=== PATIENT | male | born 1950 | race Caucasian/White ===

== ENCOUNTER 2018-03-14 11:16 | Inpatient (IN) | payer OTHER ==
[2018-03-14] MEDS: PIPER-TAZO 3.375 GM IV (PMX) 100 ML IVPB ×2 (14:12)
[2018-03-14] MEDS: SODIUM CHLORIDE 0.9% 1L BAG IV* (14:12)
[2018-03-14] MEDS: morphine 4 MG/ML VIAL IV ×2 (14:12→15:49)
[2018-03-14 14:23] LABS: WHITE BLOOD COUNT 23.5 10^3/ul (4.8-10.8)
[2018-03-14 14:23] LABS: ABNORMAL IP MESSAGE 1; HEMATOCRIT 36.4 % (42.0-52.0); HEMOGLOBIN 12.2 g/dl (14.0-18.0); MEAN CORPUSCULAR HEMOGLOBIN 32.4 pg (29.0-33.0); MEAN CORPUSCULAR HGB CONC 33.5 g/dl (32.0-37.0); MEAN CORPUSCULAR VOLUME 96.8 fl (82.0-101.0); MEAN PLATELET VOLUME 10.2 fl (7.4-10.4); PLATELET COUNT 250 10^3/UL (140-415); POSITIVE DIFF @See below; RED BLOOD COUNT 3.76 10^6/ul (4.70-6.10); RED CELL DISTRIBUTION WIDTH 12.8 % (11.5-14.5)
[2018-03-14 14:31] LABS: ADD MAN DIFF? YES
[2018-03-14 14:39] LABS: LACTIC ACID 1.1 mmol/L (0.5-2.0)
[2018-03-14 14:48] LABS: ANION GAP 14 (8-16); BLOOD UREA NITROGEN 16 mg/dl (7-20); CALCIUM 9.3 mg/dl (8.4-10.2); CARBON DIOXIDE 30 mmol/L (21-31); CHLORIDE 98 mmol/L (97-110); CREATININE 0.96 mg/dl (0.61-1.24); GLUCOSE 198 mg/dl (70-220); POTASSIUM 4.4 mmol/L (3.5-5.1); SODIUM 138 mmol/L (135-144)
[2018-03-14 14:57] LABS: PROTIME 13.3 Sec (11.9-14.9)
[2018-03-14 14:58] LABS: PARTIAL THROMBOPLASTIN TIME 36.4 Sec (25.0-35.0)
[2018-03-14 15:13] LABS: BAND NEUTROPHILS #M 0.7 10^3/ul (0.0-0.6); BAND NEUTROPHILS % (M) 3 % (0-4); GIANT THROMBO% (M) 3 % (0-0); LYMPHOCYTES #M 1.8 10^3/ul (0.8-2.9); LYMPHOCYTES % (M) 8 % (15-51); MONOCYTE #M 5.6 10^3/ul (0.3-0.9); MONOCYTES % (M) 24 % (0-11); MYELOCYTES #M 0.7 10^3/ul (0.0-0.0); MYELOCYTES % (M) 3 % (0-0); PLATELET ESTIMATE NORMAL; REACTIVE LYMPHOCYTES #M 0.4 10^3/ul (0.0-0.0); REACTIVE LYMPHOCYTES% (M) 2 % (0-0); SEG NEUT #M 14.3 10^3/ul (1.6-7.5); SEGMENTED NEUTROPHILS (M) % 60 % (39-77); SMUDGE%M 4 % (0-0)
[2018-03-14] MEDS: VANCOMYCIN 1 GM (PMX) 250 ML IVPB (15:22)
[2018-03-14] MEDS ORDERED: ACETAMINOPHEN 325 MG TAB PO ×2 (15:30→16:00)
[2018-03-14] MEDS ORDERED: ONDANSETRON 4 MG INJ IV ×2 (15:30→16:00)
[2018-03-14] MEDS ORDERED: NACL 0.9% 3 ML SYG IV (16:00)
[2018-03-14] MEDS ORDERED: VANCOMYCIN IV PER PHARMACY XX (16:00)
[2018-03-14] MEDS ORDERED: GLUCAGON 1 MG INJ IM (16:30)
[2018-03-14] MEDS ORDERED: GLUCOSE GEL 15 GRAM TUBE BUCCAL (16:30)
[2018-03-14] MEDS ORDERED: GLUCOSE GEL 15 GRAM TUBE PO ×2 (16:30)
[2018-03-14] MEDS ORDERED: DEXTROSE 50% 50 ML SYRINGE IV ×2 (16:30)
[2018-03-14 16:47] LABS: HEMOGLOBIN A1C 11.2 % (0-5.9)
[2018-03-14 17:31] LABS: ERYTHROCYTE SEDIMENTATION RATE 115 mm/Hr (0-20)
[2018-03-14] MEDS: INSULIN ASPART [NOVOLOG] 3 ML PEN SC ×3 (18:00→21:00)
[2018-03-14 19:26] LABS: LACTIC ACID 1.1 mmol/L (0.5-2.0)
[2018-03-14] MEDS: INSULIN GLARGINE [LANTus] (100 UNITS/ML) SYG SC ×2 (20:00→22:47)
[2018-03-14] MEDS: SOD CHLORIDE 0.9% 1,000 ML IV (20:26)
[2018-03-14] MEDS: HYDROCODONE/APAP (5/325) TAB PO (20:35)
[2018-03-14] MEDS: VANCOMYCIN 1 GM in 250 ML IVPB (20:35)
[2018-03-14] MEDS: ATORVASTATIN 10 MG TAB PO (20:35)
[2018-03-14 21:00] LABS: B-TYPE NATRIURETIC PEPTIDE 842 PG/ML (0-125)
[2018-03-14 23:22] LABS: LACTIC ACID 0.8 mmol/L (0.5-2.0)
[2018-03-15] MEDS ORDERED: PENDING SANTYL ORDER FOR WOUND CARE XX (00:30)
[2018-03-15] MEDS: HYDROCODONE/APAP (5/325) TAB PO ×2 (02:36→21:22)
[2018-03-15] MEDS: VANCOMYCIN 1 GM in 250 ML IVPB ×2 (04:30→18:20)
[2018-03-15 06:03] LABS: WHITE BLOOD COUNT 21.5 10^3/ul (4.8-10.8)
[2018-03-15 06:03] LABS: ABNORMAL IP MESSAGE 1; HEMOGLOBIN 10.7 g/dl (14.0-18.0); MEAN CORPUSCULAR HEMOGLOBIN 31.7 pg (29.0-33.0); MEAN CORPUSCULAR HGB CONC 33.4 g/dl (32.0-37.0); MEAN CORPUSCULAR VOLUME 94.7 fl (82.0-101.0); MEAN PLATELET VOLUME 10.2 fl (7.4-10.4); PLATELET COUNT 226 10^3/UL (140-415); POSITIVE DIFF @See below; RED BLOOD COUNT 3.38 10^6/ul (4.70-6.10)
[2018-03-15 06:13] LABS: ADD MAN DIFF? YES
[2018-03-15 06:21] LABS: LACTIC ACID 0.7 mmol/L (0.5-2.0)
[2018-03-15] MEDS: PIPER-TAZO 3.375 GM IV (PMX) 100 ML IVPB ×5 (06:34→17:43)
[2018-03-15 06:51] LABS: ANION GAP 12 (8-16); BLOOD UREA NITROGEN 13 mg/dl (7-20); CALCIUM 8.2 mg/dl (8.4-10.2); CARBON DIOXIDE 25 mmol/L (21-31); CHLORIDE 105 mmol/L (97-110); CREATININE 0.69 mg/dl (0.61-1.24); GLUCOSE 88 mg/dl (70-220); POTASSIUM 3.8 mmol/L (3.5-5.1); SODIUM 138 mmol/L (135-144)
[2018-03-15] MEDS: INSULIN ASPART [NOVOLOG] 3 ML PEN SC ×7 (08:00→21:19)
[2018-03-15] MEDS: DEXTROSE 5%-0.45% NACL 1,000 ML IV (08:19)
[2018-03-15 08:23] LABS: LYMPHOCYTES #M 2.1 10^3/ul (0.8-2.9); LYMPHOCYTES % (M) 10 % (15-51); MONOCYTE #M 5.5 10^3/ul (0.3-0.9); MONOCYTES % (M) 26 % (0-11); MYELOCYTES #M 0.2 10^3/ul (0.0-0.0); MYELOCYTES % (M) 1 % (0-0); PLATELET ESTIMATE NORMAL; POLYCHROMASIA 1+ (0-0); SEGMENTED NEUTROPHILS (M) % 63 % (39-77); SMUDGE%M 3 % (0-0)
[2018-03-15 08:37] LABS: CHOL/HDL RATIO 4.6 RATIO; CHOLESTEROL 97 mg/dl (100-200); HDL CHOLESTEROL 21 mg/dl (30-78); LDL CHOLESTEROL,CALCULATED 57 mg/dl; MAGNESIUM 1.4 mg/dl (1.7-2.5); TRIGLYCERIDES 95 mg/dl (0-149)
[2018-03-15 08:37] LABS: PHOSPHORUS 3.5 mg/dl (2.5-4.9)
[2018-03-15] MEDS: ENOXAPARIN 40 MG/0.4 ML SYG SC (09:00)
[2018-03-15] MEDS: ASPIRIN 81 MG TAB PO (09:01)
[2018-03-15] MEDS: AMLODIPINE 2.5 MG TAB PO (09:02)
[2018-03-15] MEDS: GABAPENTIN 300 MG CAP PO (09:02)
[2018-03-15] MEDS: LOSARTAN 50 MG TAB PO (09:02)
[2018-03-15] MEDS: CHOLECALCIFEROL 2,000 UNIT CAP PO (09:02)
[2018-03-15] MEDS ORDERED: EPHEDrine SULFATE 50 MG/5 ML SYG IV (13:00)
[2018-03-15] MEDS ORDERED: ATROPINE 1 MG/10 ML SYRINGE IV (13:00)
[2018-03-15] MEDS ORDERED: MIDAZOLAM 1 MG/ML 2 ML INJ IV (13:00)
[2018-03-15] MEDS ORDERED: FENTAnyl 50 MCG/ML VIAL IV ×2 (13:00)
[2018-03-15] MEDS ORDERED: LABETALOL HCL 20MG INJ IV (13:00)
[2018-03-15] MEDS ORDERED: OXYCODONE/ACETAMINOPHEN (5/325) TAB PO ×2 (13:00)
[2018-03-15] MEDS ORDERED: morphine (1 MG/ML) 10ML SYRINGE IV ×2 (13:00)
[2018-03-15] MEDS ORDERED: DIPHENHYDRAMINE 50 MG INJ IV (13:00)
[2018-03-15] MEDS ORDERED: HYDROmorphONE 1 MG/5 ML IV SYRINGE IV ×2 (13:00)
[2018-03-15] MEDS ORDERED: ONDANSETRON 4 MG INJ IV (13:00)
[2018-03-15] MEDS ORDERED: MEPERIDINE 25 MG INJ IV (13:00)
[2018-03-15] MEDS ORDERED: hydrALAzine 20 MG INJ IV (13:00)
[2018-03-15] MEDS: BACITRACIN 50000 UNITS INJ (13:03)
[2018-03-15] MEDS: POLYMYXIN B 500000 UNIT INJ (13:03)
[2018-03-15] MEDS: METHYLENE BLUE 1% 10 ML INJ (13:30)
[2018-03-15] MEDS: HYDROmorphONE 1 MG/5 ML IV SYRINGE IV (14:18)
[2018-03-15] MEDS: morphine (1 MG/ML) 10ML SYRINGE IV (14:39)
[2018-03-15] MEDS: MAGNESIUM SULFATE 4 GM/100 ML 100 ML IVPB (15:22)
[2018-03-15] MEDS: INSULIN GLARGINE [LANTus] (100 UNITS/ML) SYG SC (20:12)
[2018-03-15] MEDS: ATORVASTATIN 10 MG TAB PO (21:12)
[2018-03-16] MEDS: PIPER-TAZO 3.375 GM IV (PMX) 100 ML IVPB ×5 (00:38→23:31)
[2018-03-16] MEDS: HYDROCODONE/APAP (5/325) TAB PO ×5 (03:03→23:31)
[2018-03-16 04:00] LABS: ABNORMAL IP MESSAGE 1; HEMATOCRIT 32.6 % (42.0-52.0); HEMOGLOBIN 11.1 g/dl (14.0-18.0); MEAN CORPUSCULAR HEMOGLOBIN 32.3 pg (29.0-33.0); MEAN CORPUSCULAR VOLUME 94.8 fl (82.0-101.0); MEAN PLATELET VOLUME 9.4 fl (7.4-10.4); PLATELET COUNT 218 10^3/UL (140-415); POSITIVE DIFF @See below; RED BLOOD COUNT 3.44 10^6/ul (4.70-6.10); RED CELL DISTRIBUTION WIDTH 12.6 % (11.5-14.5)
[2018-03-16 04:00] LABS: WHITE BLOOD COUNT 26.6 10^3/ul (4.8-10.8)
[2018-03-16 04:10] LABS: ADD MAN DIFF? YES
[2018-03-16 04:20] LABS: ANION GAP 11 (8-16); BLOOD UREA NITROGEN 16 mg/dl (7-20); CALCIUM 8.6 mg/dl (8.4-10.2); CARBON DIOXIDE 27 mmol/L (21-31); CHLORIDE 104 mmol/L (97-110); CREATININE 0.86 mg/dl (0.61-1.24); GLUCOSE 211 mg/dl (70-220); MAGNESIUM 2.1 mg/dl (1.7-2.5); SODIUM 137 mmol/L (135-144)
[2018-03-16 04:29] LABS: VANCOMYCIN,TROUGH 9.2 ug/ml (10.0-20.0)
[2018-03-16] MEDS: VANCOMYCIN 1 GM in 250 ML IVPB (04:59)
[2018-03-16 05:21] LABS: LYMPHOCYTES #M 0.5 10^3/ul (0.8-2.9); LYMPHOCYTES % (M) 2 % (15-51); METAMYELOCYTES #M 0.7 10^3/ul (0.0-0.0); METAMYELOCYTES %M 3 % (0-0); MONOCYTES % (M) 19 % (0-11); MYELOCYTES #M 0.5 10^3/ul (0.0-0.0); MYELOCYTES % (M) 2 % (0-0); PLATELET ESTIMATE NORMAL; POLYCHROMASIA 2+ (0-0); SEGMENTED NEUTROPHILS (M) % 74 % (39-77); SMUDGE%M 4 % (0-0)
[2018-03-16] MEDS: INSULIN ASPART [NOVOLOG] 3 ML PEN SC ×7 (08:13→21:00)
[2018-03-16] MEDS: ASPIRIN 81 MG TAB PO (08:15)
[2018-03-16] MEDS: ENOXAPARIN 40 MG/0.4 ML SYG SC (08:15)
[2018-03-16] MEDS: CHOLECALCIFEROL 2,000 UNIT CAP PO (08:16)
[2018-03-16] MEDS: AMLODIPINE 2.5 MG TAB PO (08:16)
[2018-03-16] MEDS: GABAPENTIN 300 MG CAP PO (08:16)
[2018-03-16] MEDS: LOSARTAN 50 MG TAB PO (08:17)
[2018-03-16] MEDS: SODIUM HYPOCHLORITE (1/40) 1 APPLIC BTL IRR ×2 (09:43→21:12)
[2018-03-16] MEDS ORDERED: MIDAZOLAM 1 MG/ML 2 ML INJ (13:35)
[2018-03-16] MEDS ORDERED: FENTAnyl 50 MCG/ML VIAL (13:35)
[2018-03-16] MEDS ORDERED: PROPOFOL 200 MG INJ (13:35)
[2018-03-16] MEDS ORDERED: NEOSTIGMINE 3 MG/3 ML SYRINGE (13:35)
[2018-03-16] MEDS ORDERED: LIDOCAINE 2% (SDV) 5 ML INJ (13:35)
[2018-03-16] MEDS ORDERED: ONDANSETRON 4 MG INJ (13:35)
[2018-03-16] MEDS ORDERED: GLYCOPYRROLATE 0.4 MG INJ (13:35)
[2018-03-16] MEDS ORDERED: DEXAMETHASONE 4 MG/ML 1 ML INJ (13:35)
[2018-03-16] MEDS ORDERED: SUCCINYLCHOLINE CHLORIDE 100 MG/5 ML SYG IV (13:35)
[2018-03-16] MEDS: VANCOMYCIN 1.5 GM in SOD CHLORIDE 0.9% 250 ML IVPB (17:41)
[2018-03-16] MEDS: INSULIN GLARGINE [LANTus] (100 UNITS/ML) SYG SC (20:11)
[2018-03-16] MEDS: ATORVASTATIN 10 MG TAB PO (21:10)
[2018-03-17] MEDS: INSULIN ASPART [NOVOLOG] 3 ML PEN SC ×7 (01:00→21:00)
[2018-03-17] MEDS: PIPER-TAZO 3.375 GM IV (PMX) 100 ML IVPB ×4 (05:36→23:33)
[2018-03-17 05:50] LABS: ADD MAN DIFF? NO
[2018-03-17 05:53] LABS: WHITE BLOOD COUNT 21.8 10^3/ul (4.8-10.8)
[2018-03-17 05:53] LABS: ABNORMAL IP MESSAGE 1; BASOPHIL # 0.1 10^3/ul (0.0-0.1); BASOPHILS % 0.5 % (0.0-2.0); EOSINOPHILS % 0.1 % (0.0-7.0); HEMATOCRIT 32.9 % (42.0-52.0); HEMOGLOBIN 11.2 g/dl (14.0-18.0); LYMPHOCYTES % 13.6 % (15.0-51.0); MEAN CORPUSCULAR HEMOGLOBIN 32.8 pg (29.0-33.0); MEAN CORPUSCULAR VOLUME 96.5 fl (82.0-101.0); MEAN PLATELET VOLUME 10.1 fl (7.4-10.4); MONOCYTE # 4.5 10^3/ul (0.3-0.9); MONOCYTES % 20.4 % (0.0-11.0); NEUTROPHIL # 12.5 10^3/ul (1.6-7.5); NEUTROPHILS % 57.2 % (39.0-77.0); PLATELET COUNT 252 10^3/UL (140-415); POSITIVE DIFF @See below; RED BLOOD COUNT 3.41 10^6/ul (4.70-6.10); RED CELL DISTRIBUTION WIDTH 12.8 % (11.5-14.5)
[2018-03-17] MEDS: VANCOMYCIN 1.5 GM in SOD CHLORIDE 0.9% 250 ML IVPB (06:19)
[2018-03-17 06:25] LABS: ANION GAP 12 (8-16); BLOOD UREA NITROGEN 16 mg/dl (7-20); CALCIUM 8.4 mg/dl (8.4-10.2); CARBON DIOXIDE 27 mmol/L (21-31); CHLORIDE 106 mmol/L (97-110); CREATININE 0.81 mg/dl (0.61-1.24); GLUCOSE 73 mg/dl (70-220); POTASSIUM 4.1 mmol/L (3.5-5.1); SODIUM 141 mmol/L (135-144)
[2018-03-17] MEDS: DEXTROSE 5%-0.45% NACL 1,000 ML IV (06:30)
[2018-03-17] MEDS: LOSARTAN 50 MG TAB PO (08:40)
[2018-03-17] MEDS: GABAPENTIN 300 MG CAP PO (08:40)
[2018-03-17] MEDS: ENOXAPARIN 40 MG/0.4 ML SYG SC (08:40)
[2018-03-17] MEDS: ASPIRIN 81 MG TAB PO (08:40)
[2018-03-17] MEDS: CHOLECALCIFEROL 2,000 UNIT CAP PO (08:40)
[2018-03-17] MEDS: AMLODIPINE 2.5 MG TAB PO (08:40)
[2018-03-17] MEDS: SODIUM HYPOCHLORITE (1/40) 1 APPLIC BTL IRR ×2 (08:41→20:11)
[2018-03-17] MEDS ORDERED: FENTAnyl 50 MCG/ML VIAL (13:02)
[2018-03-17] MEDS ORDERED: MIDAZOLAM 1 MG/ML 2 ML INJ (13:02)
[2018-03-17] MEDS ORDERED: IODIXANOL LOCM 50 ML BTL (13:21)
[2018-03-17] MEDS ORDERED: HEPARIN 1000 UNITS/NS (A-LINE) 2,000 ML (13:21)
[2018-03-17] MEDS ORDERED: IODIXANOL LOCM 100 ML BTL (13:21)
[2018-03-17] MEDS ORDERED: LIDOCAINE 1% (MDV) 20 ML INJ (13:21)
[2018-03-17] MEDS: HYDROCODONE/APAP (5/325) TAB PO ×2 (14:04→21:46)
[2018-03-17] MEDS: ASPIRIN 325 MG TAB PO (15:36)
[2018-03-17] MEDS: CLOPIDOGREL 75 MG TAB PO (15:37)
[2018-03-17] MEDS: INSULIN GLARGINE [LANTus] (100 UNITS/ML) SYG SC (20:10)
[2018-03-17] MEDS: ATORVASTATIN 10 MG TAB PO (20:11)
[2018-03-18] MEDS: PIPER-TAZO 3.375 GM IV (PMX) 100 ML IVPB ×4 (05:33→23:20)
[2018-03-18 05:44] LABS: WHITE BLOOD COUNT 20.1 10^3/ul (4.8-10.8)
[2018-03-18 05:44] LABS: ABNORMAL IP MESSAGE 1; HEMATOCRIT 32.8 % (42.0-52.0); MEAN CORPUSCULAR HGB CONC 33.5 g/dl (32.0-37.0); MEAN CORPUSCULAR VOLUME 95.3 fl (82.0-101.0); MEAN PLATELET VOLUME 10.1 fl (7.4-10.4); PLATELET COUNT 239 10^3/UL (140-415); POSITIVE DIFF @See below; RED BLOOD COUNT 3.44 10^6/ul (4.70-6.10)
[2018-03-18 05:59] LABS: ADD MAN DIFF? YES
[2018-03-18 06:20] LABS: ANION GAP 10 (8-16); BLOOD UREA NITROGEN 14 mg/dl (7-20); CALCIUM 8.5 mg/dl (8.4-10.2); CARBON DIOXIDE 28 mmol/L (21-31); CHLORIDE 105 mmol/L (97-110); CREATININE 0.81 mg/dl (0.61-1.24); GLUCOSE 90 mg/dl (70-220); POTASSIUM 3.9 mmol/L (3.5-5.1); SODIUM 139 mmol/L (135-144)
[2018-03-18 07:51] LABS: BAND NEUTROPHILS % (M) 5 % (0-4); BASOPHIL #M 0.4 10^3/ul (0.0-0.0); BASOPHILS % (M) 2 % (0-2); ERYTHROBLAST% (NRBC) (M) 1 % (0-0); LYMPHOCYTES #M 2.2 10^3/ul (0.8-2.9); LYMPHOCYTES % (M) 11 % (15-51); MONOCYTE #M 3.2 10^3/ul (0.3-0.9); MONOCYTES % (M) 16 % (0-11); MYELOCYTES #M 1.2 10^3/ul (0.0-0.0); MYELOCYTES % (M) 6 % (0-0); PLATELET ESTIMATE NORMAL; SEG NEUT #M 12.3 10^3/ul (1.6-7.5); SEGMENTED NEUTROPHILS (M) % 60 % (39-77); SMUDGE%M 3 % (0-0)
[2018-03-18] MEDS: INSULIN ASPART [NOVOLOG] 3 ML PEN SC ×7 (08:00→21:00)
[2018-03-18] MEDS: LOSARTAN 50 MG TAB PO (08:22)
[2018-03-18] MEDS: CHOLECALCIFEROL 2,000 UNIT CAP PO (08:22)
[2018-03-18] MEDS: CLOPIDOGREL 75 MG TAB PO (08:23)
[2018-03-18] MEDS: SODIUM HYPOCHLORITE (1/40) 1 APPLIC BTL IRR ×2 (08:23→20:15)
[2018-03-18] MEDS: AMLODIPINE 2.5 MG TAB PO (08:23)
[2018-03-18] MEDS: GABAPENTIN 300 MG CAP PO (08:23)
[2018-03-18] MEDS: ASPIRIN 325 MG TAB PO (08:23)
[2018-03-18] MEDS: ENOXAPARIN 40 MG/0.4 ML SYG SC (08:23)
[2018-03-18] MEDS: VANCOMYCIN 1.5 GM in SOD CHLORIDE 0.9% 250 ML IVPB ×2 (09:03→21:30)
[2018-03-18] MEDS ORDERED: INSULIN ASPART [NOVOLOG] 3 ML PEN SC (13:00)
[2018-03-18 13:24] LABS: C-REACTIVE PROTEIN 4.9 mg/dl (0.0-0.9)
[2018-03-18] MEDS: HYDROCODONE/APAP (5/325) TAB PO ×4 (15:06→23:55)
[2018-03-18 15:12] LABS: ERYTHROCYTE SEDIMENTATION RATE 115 mm/Hr (0-20)
[2018-03-18] MEDS: INSULIN GLARGINE [LANTus] (100 UNITS/ML) SYG SC (20:14)
[2018-03-18] MEDS: ATORVASTATIN 10 MG TAB PO (20:14)
[2018-03-19] MEDS: PIPER-TAZO 3.375 GM IV (PMX) 100 ML IVPB ×4 (00:33→17:02)
[2018-03-19 06:10] LABS: ABNORMAL IP MESSAGE 1; HEMATOCRIT 33.6 % (42.0-52.0); HEMOGLOBIN 11.3 g/dl (14.0-18.0); MEAN CORPUSCULAR HGB CONC 33.6 g/dl (32.0-37.0); MEAN CORPUSCULAR VOLUME 95.2 fl (82.0-101.0); MEAN PLATELET VOLUME 9.8 fl (7.4-10.4); PLATELET COUNT 256 10^3/UL (140-415); POSITIVE DIFF @See below; RED BLOOD COUNT 3.53 10^6/ul (4.70-6.10); RED CELL DISTRIBUTION WIDTH 12.9 % (11.5-14.5)
[2018-03-19 06:10] LABS: WHITE BLOOD COUNT 18.8 10^3/ul (4.8-10.8)
[2018-03-19 06:20] LABS: ADD MAN DIFF? YES
[2018-03-19 06:39] LABS: PHOSPHORUS 4.5 mg/dl (2.5-4.9)
[2018-03-19 06:39] LABS: MAGNESIUM 1.8 mg/dl (1.7-2.5)
[2018-03-19 06:42] LABS: ANION GAP 14 (8-16); BLOOD UREA NITROGEN 15 mg/dl (7-20); CALCIUM 9.1 mg/dl (8.4-10.2); CARBON DIOXIDE 27 mmol/L (21-31); CHLORIDE 102 mmol/L (97-110); CREATININE 0.83 mg/dl (0.61-1.24); GLUCOSE 92 mg/dl (70-220); POTASSIUM 3.8 mmol/L (3.5-5.1); SODIUM 139 mmol/L (135-144)
[2018-03-19] MEDS: HYDROCODONE/APAP (5/325) TAB PO ×3 (07:28→16:08)
[2018-03-19] MEDS: INSULIN ASPART [NOVOLOG] 3 ML PEN SC ×6 (07:30→17:10)
[2018-03-19 08:06] LABS: BASOPHIL #M 0.1 10^3/ul (0.0-0.0); BASOPHILS % (M) 1 % (0-2); PLATELET ESTIMATE NORMAL
[2018-03-19] MEDS: ENOXAPARIN 40 MG/0.4 ML SYG SC (08:25)
[2018-03-19] MEDS: CHOLECALCIFEROL 2,000 UNIT CAP PO (08:26)
[2018-03-19] MEDS: CLOPIDOGREL 75 MG TAB PO (08:26)
[2018-03-19] MEDS: LOSARTAN 50 MG TAB PO (08:27)
[2018-03-19] MEDS: AMLODIPINE 2.5 MG TAB PO (08:27)
[2018-03-19] MEDS: GABAPENTIN 300 MG CAP PO (08:27)
[2018-03-19] MEDS: ASPIRIN 325 MG TAB PO (08:29)
[2018-03-19] MEDS: VANCOMYCIN 1.5 GM in SOD CHLORIDE 0.9% 250 ML IVPB (08:29)
[2018-03-19] MEDS: SODIUM HYPOCHLORITE (1/40) 1 APPLIC BTL IRR (08:30)
[2018-03-19 11:54] LABS: BAND NEUTROPHILS #M 2.2 10^3/ul (0.0-0.6); BAND NEUTROPHILS % (M) 12 % (0-4); BURR CELLS 1+ (0-0); EOSINOPHILS % (M) 1 % (0-7); ERYTHROBLAST% (NRBC) (M) 1 % (0-0); GIANT THROMBO% (M) 2 % (0-0); LYMPHOCYTES #M 1.6 10^3/ul (0.8-2.9); LYMPHOCYTES % (M) 9 % (15-51); METAMYELOCYTES #M 0.1 10^3/ul (0.0-0.0); METAMYELOCYTES %M 1 % (0-0); MONOCYTES % (M) 16 % (0-11); MYELOCYTES #M 0.5 10^3/ul (0.0-0.0); MYELOCYTES % (M) 3 % (0-0); POLYCHROMASIA 2+ (0-0); REACTIVE LYMPHOCYTES #M 0.3 10^3/ul (0.0-0.0); REACTIVE LYMPHOCYTES% (M) 2 % (0-0); SEG NEUT #M 10.9 10^3/ul (1.6-7.5); SEGMENTED NEUTROPHILS (M) % 56 % (39-77); SMUDGE%M 7 % (0-0)
[2018-03-24 13:18] LABS: PROCALCITONIN <0.10 ng/mL (<0.10)
== END 2018-03-19 18:30 | DRG 854 ==
LOC: E/R 11:16 → PP2 18:30
PROC: 0KBW0ZZ Excision of Left Foot Muscle, Open Approach (ICD-10-PCS; principal; 2018-03-15 13:03)
PROC: 047U3ZZ Dilation of Left Peroneal Artery, Percutaneous Approach (ICD-10-PCS; 2018-03-15 13:03)
PROC: 0JBR0ZX Excision of Left Foot Subcutaneous Tissue and Fascia, Open Approach, Diagnostic (ICD-10-PCS; 2018-03-15 13:03)
PROC: B410YZZ Fluoroscopy of Abdominal Aorta using Other Contrast (ICD-10-PCS; 2018-03-15 13:03)
PROC: B41GYZZ Fluoroscopy of Left Lower Extremity Arteries using Other Contrast (ICD-10-PCS; 2018-03-15 13:03)
DX: A41.9 Sepsis, unspecified organism (principal); L03.116 Cellulitis of left lower limb; L02.612 Cutaneous abscess of left foot; E11.52 Type 2 diabetes mellitus with diabetic peripheral angiopathy with gangrene; I70.262 Atherosclerosis of native arteries of extremities with gangrene, left leg; M86.8X7 Other osteomyelitis, ankle and foot; E11.621 Type 2 diabetes mellitus with foot ulcer; L97.523 Non-pressure chronic ulcer of other part of left foot with necrosis of muscle; E11.628 Type 2 diabetes mellitus with other skin complications; E11.42 Type 2 diabetes mellitus with diabetic polyneuropathy; E11.69 Type 2 diabetes mellitus with other specified complication; E11.65 Type 2 diabetes mellitus with hyperglycemia; E78.5 Hyperlipidemia, unspecified; E55.9 Vitamin D deficiency, unspecified; D63.8 Anemia in other chronic diseases classified elsewhere; D64.9 Anemia, unspecified; I10 Essential (primary) hypertension; M19.90 Unspecified osteoarthritis, unspecified site; R53.81 Other malaise; R26.2 Difficulty in walking, not elsewhere classified; Z18.10 Retained metal fragments, unspecified; Z95.0 Presence of cardiac pacemaker; Z87.891 Personal history of nicotine dependence; Z79.01 Long term (current) use of anticoagulants; Z79.82 Long term (current) use of aspirin; Z79.4 Long term (current) use of insulin
CPT/HCPCS: 36415; 71045; 73630-LT; 73718; 75625; 75710; 80048; 80061; 80202; 82306; 82652; 82962; 83036; 83605; 83735; 83880; 84100; 84145; 85025; 85610; 85651; 85730; 86140; 87040; 87081; 88300; 88304; 93923; 93970; 96365; 96375; 99285-25

== ENCOUNTER 2018-03-26 12:37 | Inpatient (IN) | payer OTHER ==
[2018-03-26 13:02] LABS: ADD MAN DIFF? NO
[2018-03-26] MEDS: PIPER-TAZO 3.375 GM IV (PMX) 100 ML IVPB ×2 (13:12→21:50)
[2018-03-26 13:14] LABS: ABNORMAL IP MESSAGE 1; BASOPHIL # 0.1 10^3/ul (0.0-0.1); BASOPHILS % 0.3 % (0.0-2.0); EOSINOPHILS # 0.1 10^3/ul (0.0-0.5); EOSINOPHILS % 0.5 % (0.0-7.0); HEMATOCRIT 33.5 % (42.0-52.0); HEMOGLOBIN 11.3 g/dl (14.0-18.0); LYMPHOCYTES # 1.5 10^3/ul (0.8-2.9); LYMPHOCYTES % 10.1 % (15.0-51.0); MEAN CORPUSCULAR HGB CONC 33.7 g/dl (32.0-37.0); MEAN CORPUSCULAR VOLUME 94.9 fl (82.0-101.0); MEAN PLATELET VOLUME 10.1 fl (7.4-10.4); MONOCYTES % 40.5 % (0.0-11.0); NEUTROPHILS % 47.2 % (39.0-77.0); PLATELET COUNT 247 10^3/UL (140-415); POSITIVE DIFF @See below; RED BLOOD COUNT 3.53 10^6/ul (4.70-6.10); RED CELL DISTRIBUTION WIDTH 13.2 % (11.5-14.5)
[2018-03-26 13:14] LABS: WHITE BLOOD COUNT 14.8 10^3/ul (4.8-10.8)
[2018-03-26 13:33] LABS: INR 1.11; PROTIME 14.5 Sec (11.9-14.9); PT RATIO 1.1
[2018-03-26 13:34] LABS: ANION GAP 14 (8-16); BLOOD UREA NITROGEN 16 mg/dl (7-20); CALCIUM 9.2 mg/dl (8.4-10.2); CARBON DIOXIDE 28 mmol/L (21-31); CHLORIDE 100 mmol/L (97-110); CREATININE 0.97 mg/dl (0.61-1.24); GLUCOSE 146 mg/dl (70-220); PARTIAL THROMBOPLASTIN TIME 42.9 Sec (23.0-35.0); POTASSIUM 3.7 mmol/L (3.5-5.1); SODIUM 138 mmol/L (135-144)
[2018-03-26 13:35] LABS: LACTIC ACID 1.8 mmol/L (0.5-2.0)
[2018-03-26 13:46] LABS: TROPONIN-I < 0.012 ng/ml (0.000-0.120)
[2018-03-26] MEDS ORDERED: ONDANSETRON 4 MG INJ IV ×2 (14:00→14:30)
[2018-03-26] MEDS ORDERED: ACETAMINOPHEN 325 MG TAB PO (14:00)
[2018-03-26] MEDS: VANCOMYCIN 1 GM (PMX) 250 ML IVPB (14:14)
[2018-03-26 14:30] LABS: ADD UMIC YES; UR ASCORBIC ACID NEGATIVE (NEGATIVE); UR BILIRUBIN (Dip) NEGATIVE (NEGATIVE); UR BLOOD (Dip) 1+ mg/dL (NEGATIVE); UR CLARITY CLEAR (CLEAR); UR COLOR STRAW (YELLOW); UR GLUCOSE (Dip) NEGATIVE (NEGATIVE); UR KETONES (Dip) NEGATIVE (NEGATIVE); UR LEUKOCYTE ESTERASE (Dip) NEGATIVE Leu/ul (NEGATIVE); UR NITRITE (Dip) NEGATIVE (NEGATIVE); UR RBC 1 /HPF (0-5); UR TOTAL PROTEIN (Dip) 1+ mg/dl (NEGATIVE); UR UROBILINOGEN (Dip) NEGATIVE (NEGATIVE); UR WBC 1 /HPF (0-5)
[2018-03-26] MEDS: PIPERACILLIN IV (14:30)
[2018-03-26] MEDS: TAZO IV (14:30)
[2018-03-26] MEDS ORDERED: GLUCOSE GEL 15 GRAM TUBE BUCCAL (15:30)
[2018-03-26] MEDS ORDERED: DEXTROSE 50% 50 ML SYRINGE IV ×2 (15:30)
[2018-03-26] MEDS ORDERED: GLUCAGON 1 MG INJ IM (15:30)
[2018-03-26] MEDS ORDERED: GLUCOSE GEL 15 GRAM TUBE PO ×2 (15:30)
[2018-03-26 15:33] LABS: LACTIC ACID 1.1 mmol/L (0.5-2.0)
[2018-03-26] MEDS: SOD CHLORIDE 0.9% 1,000 ML IV (16:49)
[2018-03-26] MEDS ORDERED: PENDING SANTYL ORDER FOR WOUND CARE XX (17:00)
[2018-03-26 17:20] LABS: LACTIC ACID 1.3 mmol/L (0.5-2.0)
[2018-03-26] MEDS: INSULIN ASPART [NOVOLOG] 3 ML PEN SC (17:25)
[2018-03-26] MEDS: ACCU-CHEK XX ×2 (17:25→21:00)
[2018-03-26] MEDS ORDERED: VANCOMYCIN IV PER PHARMACY XX (17:30)
[2018-03-26] MEDS ORDERED: GABAPENTIN 300 MG CAP (19:58)
[2018-03-26] MEDS ORDERED: ATORVASTATIN 10 MG TAB (19:58)
[2018-03-26] MEDS: INSULIN GLARGINE [LANTus] (100 UNITS/ML) SYG SC (20:07)
[2018-03-26] MEDS: GABAPENTIN 300 MG CAP PO (20:10)
[2018-03-26] MEDS: ATORVASTATIN 10 MG TAB PO (20:10)
[2018-03-26] MEDS ORDERED: SOD CHLORIDE IV (21:00)
[2018-03-26] MEDS ORDERED: [UNRECOGNIZED DRUG - OTHER] IV (21:00)
[2018-03-26] MEDS ORDERED: VANCOMYCIN IV (21:00)
[2018-03-27] MEDS ORDERED: hydrALAzine 20 MG INJ IV (02:00)
[2018-03-27] MEDS: SOD CHLORIDE 0.9% 1,000 ML IV ×2 (02:30→12:00)
[2018-03-27] MEDS: INSULIN ASPART [NOVOLOG] 3 ML PEN SC ×8 (05:00→20:32)
[2018-03-27] MEDS: IBUPROFEN 600 MG TAB PO (05:05)
[2018-03-27] MEDS: COLLAGENASE 5 GM (UD JAR) TOP ×3 (05:06→09:01)
[2018-03-27 05:16] LABS: ADD MAN DIFF? NO
[2018-03-27 05:20] LABS: ABNORMAL IP MESSAGE 1; BASOPHIL # 0.1 10^3/ul (0.0-0.1); BASOPHILS % 0.3 % (0.0-2.0); EOSINOPHILS # 0.1 10^3/ul (0.0-0.5); EOSINOPHILS % 0.3 % (0.0-7.0); HEMATOCRIT 29.8 % (42.0-52.0); LYMPHOCYTES # 1.9 10^3/ul (0.8-2.9); LYMPHOCYTES % 11.3 % (15.0-51.0); MEAN CORPUSCULAR HEMOGLOBIN 31.5 pg (29.0-33.0); MEAN CORPUSCULAR HGB CONC 33.6 g/dl (32.0-37.0); MEAN PLATELET VOLUME 10.4 fl (7.4-10.4); MONOCYTE # 7.8 10^3/ul (0.3-0.9); MONOCYTES % 47.7 % (0.0-11.0); NEUTROPHIL # 6.4 10^3/ul (1.6-7.5); NEUTROPHILS % 39.1 % (39.0-77.0); PLATELET COUNT 239 10^3/UL (140-415); POSITIVE DIFF @See below; RED BLOOD COUNT 3.17 10^6/ul (4.70-6.10); RED CELL DISTRIBUTION WIDTH 13.2 % (11.5-14.5)
[2018-03-27 05:20] LABS: WHITE BLOOD COUNT 16.4 10^3/ul (4.8-10.8)
[2018-03-27 05:38] LABS: ANION GAP 11 (8-16); BLOOD UREA NITROGEN 16 mg/dl (7-20); CALCIUM 8.9 mg/dl (8.4-10.2); CARBON DIOXIDE 28 mmol/L (21-31); CHLORIDE 104 mmol/L (97-110); CREATININE 0.95 mg/dl (0.61-1.24); GLUCOSE 117 mg/dl (70-220); MAGNESIUM 1.7 mg/dl (1.7-2.5); POTASSIUM 3.8 mmol/L (3.5-5.1); SODIUM 139 mmol/L (135-144)
[2018-03-27] MEDS: PIPER-TAZO 3.375 GM IV (PMX) 100 ML IVPB ×3 (05:59→22:55)
[2018-03-27] MEDS: metFORMIN 850 MG TAB PO ×3 (06:00→17:03)
[2018-03-27 06:01] LABS: VANCOMYCIN,RANDOM 13.1 ug/ml
[2018-03-27] MEDS: ACCU-CHEK XX ×6 (07:30→20:32)
[2018-03-27] MEDS: ENOXAPARIN 40 MG/0.4 ML SYG SC (08:59)
[2018-03-27] MEDS ORDERED: VANCOMYCIN 1.5 GM in SOD CHLORIDE 0.9% 250 ML IVPB (09:00)
[2018-03-27] MEDS ORDERED: ENOXAPARIN 40 MG/0.4 ML SYG SC (09:00)
[2018-03-27] MEDS: GABAPENTIN 300 MG CAP PO ×2 (09:00→20:25)
[2018-03-27] MEDS: AMLODIPINE 2.5 MG TAB PO (09:01)
[2018-03-27] MEDS: LOSARTAN 50 MG TAB PO (09:01)
[2018-03-27] MEDS: ASPIRIN 81 MG TAB PO (09:01)
[2018-03-27] MEDS: HYDROCHLOROTHIAZIDE 25 MG TAB PO (09:01)
[2018-03-27] MEDS: VANCOMYCIN 1.5 GM in SOD CHLORIDE 0.9% 250 ML IVPB ×2 (10:17→23:27)
[2018-03-27 12:46] LABS: IRON 43 ug/dl (35-150)
[2018-03-27 12:56] LABS: % IRON SATURATION 16 % SAT (22-52); TOTAL IRON BINDING CAPACITY 275 ug/dl (241-421)
[2018-03-27 13:37] LABS: HEPATITIS C VIRAL ANTIBODY NEGATIVE (NEGATIVE)
[2018-03-27] MEDS: ERGOCALCIFEROL (8000 UNITS/ML PO SYG) PO (14:32)
[2018-03-27] MEDS: MAGNESIUM SULFATE 3 GM in DEXTROSE 5% 100 ML IVPB (15:12)
[2018-03-27 17:40] LABS: RAPID PLASMA REAGIN NONREACTIVE (NR)
[2018-03-27] MEDS ORDERED: INSULIN GLARGINE [LANTus] (100 UNITS/ML) SYG SC (20:00)
[2018-03-27] MEDS: ATORVASTATIN 40 MG TAB PO (20:21)
[2018-03-27] MEDS: DOXAZOSIN 2 MG TAB PO (20:25)
[2018-03-27] MEDS: SOD FERRIC GLUC COMPLX 125 MG in SOD CHLORIDE 0.9% 100 ML IVPB (21:35)
[2018-03-28] MEDS: PIPER-TAZO 3.375 GM IV (PMX) 100 ML IVPB ×3 (05:57→22:02)
[2018-03-28] MEDS: ACCU-CHEK XX ×7 (07:55→21:00)
[2018-03-28] MEDS: INSULIN ASPART [NOVOLOG] 3 ML PEN SC ×7 (07:56→21:00)
[2018-03-28] MEDS: COLLAGENASE 5 GM (UD JAR) TOP (08:12)
[2018-03-28] MEDS: metFORMIN 850 MG TAB PO ×2 (08:12→18:36)
[2018-03-28] MEDS: ASPIRIN 81 MG TAB PO (08:12)
[2018-03-28] MEDS: HYDROCHLOROTHIAZIDE 25 MG TAB PO (08:13)
[2018-03-28] MEDS: GABAPENTIN 300 MG CAP PO ×2 (08:13→20:21)
[2018-03-28] MEDS: ERGOCALCIFEROL 50,000 UNIT CAP PO (08:13)
[2018-03-28] MEDS: LOSARTAN 50 MG TAB PO (08:13)
[2018-03-28] MEDS: ENOXAPARIN 40 MG/0.4 ML SYG SC (08:14)
[2018-03-28] MEDS: VANCOMYCIN 1.5 GM in SOD CHLORIDE 0.9% 250 ML IVPB ×2 (10:41→22:50)
[2018-03-28] MEDS: SOD FERRIC GLUC COMPLX 125 MG in SOD CHLORIDE 0.9% 100 ML IVPB (17:16)
[2018-03-28] MEDS: IBUPROFEN 600 MG TAB PO ×2 (17:16→22:58)
[2018-03-28] MEDS: INSULIN GLARGINE [LANTus] (100 UNITS/ML) SYG SC ×2 (20:00→21:44)
[2018-03-28] MEDS: ATORVASTATIN 40 MG TAB PO (20:21)
[2018-03-28] MEDS: DOXAZOSIN 2 MG TAB PO (20:21)
[2018-03-28] MEDS: SOD CHLORIDE 0.9% 1,000 ML IV (21:00)
[2018-03-29] MEDS: INSULIN ASPART [NOVOLOG] 3 ML PEN SC ×10 (01:00→21:00)
[2018-03-29] MEDS: SOD CHLORIDE 0.9% 1,000 ML IV (02:19)
[2018-03-29] MEDS: PIPER-TAZO 3.375 GM IV (PMX) 100 ML IVPB ×3 (05:30→22:05)
[2018-03-29 05:45] LABS: ADD MAN DIFF? NO
[2018-03-29 05:50] LABS: ABNORMAL IP MESSAGE 1; BASOPHIL # 0.1 10^3/ul (0.0-0.1); BASOPHILS % 0.5 % (0.0-2.0); EOSINOPHILS # 0.1 10^3/ul (0.0-0.5); EOSINOPHILS % 0.7 % (0.0-7.0); HEMATOCRIT 30.5 % (42.0-52.0); HEMOGLOBIN 9.9 g/dl (14.0-18.0); LYMPHOCYTES # 1.9 10^3/ul (0.8-2.9); LYMPHOCYTES % 15.7 % (15.0-51.0); MEAN CORPUSCULAR HEMOGLOBIN 31.4 pg (29.0-33.0); MEAN CORPUSCULAR HGB CONC 32.5 g/dl (32.0-37.0); MEAN CORPUSCULAR VOLUME 96.8 fl (82.0-101.0); MEAN PLATELET VOLUME 10.5 fl (7.4-10.4); MONOCYTE # 4.8 10^3/ul (0.3-0.9); MONOCYTES % 40.1 % (0.0-11.0); NEUTROPHIL # 4.9 10^3/ul (1.6-7.5); NEUTROPHILS % 41.6 % (39.0-77.0); PLATELET COUNT 270 10^3/UL (140-415); POSITIVE DIFF @See below; RED BLOOD COUNT 3.15 10^6/ul (4.70-6.10); RED CELL DISTRIBUTION WIDTH 13.2 % (11.5-14.5)
[2018-03-29 05:50] LABS: WHITE BLOOD COUNT 11.9 10^3/ul (4.8-10.8)
[2018-03-29 06:12] LABS: PARTIAL THROMBOPLASTIN TIME 42.2 Sec (23.0-35.0); PROTIME 15.4 Sec (11.9-14.9); PT RATIO 1.2
[2018-03-29 06:22] LABS: MAGNESIUM 1.8 mg/dl (1.7-2.5)
[2018-03-29 06:43] LABS: ALANINE AMINOTRANSFERASE 56 IU/L (13-69); ALBUMIN 2.9 g/dl (3.3-4.9); ALKALINE PHOSPHATASE 49 IU/L (42-121); ANION GAP 14 (8-16); ASPARTATE AMINO TRANSFERASE 42 IU/L (15-46); BILIRUBIN,INDIRECT 0.4 mg/dl (0-1.1); BILIRUBIN,TOTAL 0.4 mg/dl (0.2-1.3); BLOOD UREA NITROGEN 23 mg/dl (7-20); CALCIUM 9.2 mg/dl (8.4-10.2); CARBON DIOXIDE 29 mmol/L (21-31); CHLORIDE 102 mmol/L (97-110); CREATININE 1.43 mg/dl (0.61-1.24); GLUCOSE 98 mg/dl (70-220); POTASSIUM 4.6 mmol/L (3.5-5.1); SODIUM 140 mmol/L (135-144)
[2018-03-29] MEDS: metFORMIN 850 MG TAB PO ×2 (08:00→17:05)
[2018-03-29] MEDS: ACCU-CHEK XX ×7 (08:01→21:00)
[2018-03-29] MEDS: LOSARTAN 50 MG TAB PO (08:02)
[2018-03-29] MEDS: ENOXAPARIN 40 MG/0.4 ML SYG SC (08:03)
[2018-03-29] MEDS: GABAPENTIN 300 MG CAP PO ×2 (08:03→22:04)
[2018-03-29] MEDS: HYDROCHLOROTHIAZIDE 25 MG TAB PO (08:03)
[2018-03-29] MEDS: COLLAGENASE 5 GM (UD JAR) TOP (08:04)
[2018-03-29] MEDS: ASPIRIN 81 MG TAB PO (08:05)
[2018-03-29] MEDS: VANCOMYCIN 1.5 GM in SOD CHLORIDE 0.9% 250 ML IVPB (11:12)
[2018-03-29] MEDS ORDERED: LIDOCAINE 1% (MDV) 20 ML INJ (14:24)
[2018-03-29] MEDS ORDERED: MINERAL OIL LIGHT 10 ML VIAL (14:24)
[2018-03-29] MEDS ORDERED: MIDAZOLAM 1 MG/ML 2 ML INJ (14:29)
[2018-03-29] MEDS ORDERED: FENTAnyl 50 MCG/ML VIAL (14:30)
[2018-03-29] MEDS: POLYMYXIN/BACITRACIN 1L IRRIG IRR (15:00)
[2018-03-29] MEDS: LIDOCAINE 1% (MDV) 50 ML INJ INJ (15:00)
[2018-03-29] MEDS ORDERED: HYDROmorphONE 1 MG/5 ML IV SYRINGE IV ×2 (16:00)
[2018-03-29] MEDS ORDERED: MIDAZOLAM 1 MG/ML 2 ML INJ IV (16:00)
[2018-03-29] MEDS ORDERED: ONDANSETRON 4 MG INJ IV (16:00)
[2018-03-29] MEDS ORDERED: ALBUTEROL 0.083% (NEB) 2.5 MG/3 ML AMP HHN (16:00)
[2018-03-29] MEDS ORDERED: MEPERIDINE 25 MG INJ IV (16:00)
[2018-03-29] MEDS ORDERED: EPHEDrine SULFATE 50 MG/5 ML SYG IV (16:00)
[2018-03-29] MEDS ORDERED: hydrALAzine 20 MG INJ IV (16:00)
[2018-03-29] MEDS ORDERED: DIPHENHYDRAMINE 50 MG INJ IV (16:00)
[2018-03-29] MEDS ORDERED: LABETALOL HCL 20MG INJ IV (16:00)
[2018-03-29] MEDS ORDERED: FENTAnyl 50 MCG/ML VIAL IV ×3 (16:00)
[2018-03-29] MEDS ORDERED: OXYCODONE/ACETAMINOPHEN (5/325) TAB PO ×2 (16:00)
[2018-03-29] MEDS ORDERED: METOCLOPRAMIDE 10 MG INJ IV (16:00)
[2018-03-29] MEDS: SOD FERRIC GLUC COMPLX 125 MG in SOD CHLORIDE 0.9% 100 ML IVPB (16:50)
[2018-03-29] MEDS: IBUPROFEN 600 MG TAB PO (19:55)
[2018-03-29] MEDS: ATORVASTATIN 40 MG TAB PO (22:03)
[2018-03-29] MEDS: DOXAZOSIN 2 MG TAB PO (22:04)
[2018-03-29] MEDS: INSULIN GLARGINE [LANTus] (100 UNITS/ML) SYG SC (22:05)
[2018-03-29] MEDS ORDERED: HYDROCODONE/APAP (5/325) TAB PO (22:30)
[2018-03-29] MEDS: HYDROCODONE/APAP (5/325) TAB PO (22:30)
[2018-03-30] MEDS: HYDROCODONE/APAP (5/325) TAB PO ×3 (02:40→21:36)
[2018-03-30 04:57] LABS: ADD MAN DIFF? NO
[2018-03-30 05:03] LABS: WHITE BLOOD COUNT 9.6 10^3/ul (4.8-10.8)
[2018-03-30 05:03] LABS: ABNORMAL IP MESSAGE 1; BASOPHIL # 0.1 10^3/ul (0.0-0.1); BASOPHILS % 0.6 % (0.0-2.0); EOSINOPHILS # 0.1 10^3/ul (0.0-0.5); EOSINOPHILS % 0.6 % (0.0-7.0); HEMOGLOBIN 9.4 g/dl (14.0-18.0); LYMPHOCYTES # 1.7 10^3/ul (0.8-2.9); MEAN CORPUSCULAR HEMOGLOBIN 31.9 pg (29.0-33.0); MEAN CORPUSCULAR HGB CONC 33.6 g/dl (32.0-37.0); MEAN CORPUSCULAR VOLUME 94.9 fl (82.0-101.0); MEAN PLATELET VOLUME 10.2 fl (7.4-10.4); MONOCYTE # 3.6 10^3/ul (0.3-0.9); MONOCYTES % 37.4 % (0.0-11.0); NEUTROPHILS % 42.2 % (39.0-77.0); PLATELET COUNT 256 10^3/UL (140-415); POSITIVE DIFF @See below; RED BLOOD COUNT 2.95 10^6/ul (4.70-6.10)
[2018-03-30 05:32] LABS: ANION GAP 12 (8-16); BLOOD UREA NITROGEN 30 mg/dl (7-20); CALCIUM 8.5 mg/dl (8.4-10.2); CARBON DIOXIDE 25 mmol/L (21-31); CHLORIDE 105 mmol/L (97-110); CREATININE 1.23 mg/dl (0.61-1.24); GLUCOSE 86 mg/dl (70-220); MAGNESIUM 1.8 mg/dl (1.7-2.5); POTASSIUM 3.8 mmol/L (3.5-5.1); SODIUM 138 mmol/L (135-144)
[2018-03-30] MEDS: PIPER-TAZO 3.375 GM IV (PMX) 100 ML IVPB ×3 (05:48→21:33)
[2018-03-30] MEDS: INSULIN ASPART [NOVOLOG] 3 ML PEN SC ×7 (07:30→21:00)
[2018-03-30] MEDS: ACCU-CHEK XX ×7 (08:09→21:27)
[2018-03-30] MEDS: ENOXAPARIN 40 MG/0.4 ML SYG SC (08:11)
[2018-03-30] MEDS: COLLAGENASE 5 GM (UD JAR) TOP (08:17)
[2018-03-30] MEDS: GABAPENTIN 300 MG CAP PO ×2 (08:17→21:37)
[2018-03-30] MEDS: ASPIRIN 81 MG TAB PO (08:17)
[2018-03-30] MEDS: metFORMIN 850 MG TAB PO ×2 (09:55→17:29)
[2018-03-30] MEDS ORDERED: VANCOMYCIN IV PER PHARMACY XX (16:00)
[2018-03-30] MEDS: VANCOMYCIN 1.5 GM in SOD CHLORIDE 0.9% 250 ML IVPB (17:28)
[2018-03-30] MEDS: DOXAZOSIN 2 MG TAB PO (21:37)
[2018-03-30] MEDS: ATORVASTATIN 40 MG TAB PO (21:37)
[2018-03-30] MEDS: INSULIN GLARGINE [LANTus] (100 UNITS/ML) SYG SC (21:41)
[2018-03-31] MEDS: HYDROCODONE/APAP (5/325) TAB PO ×4 (05:32→22:59)
[2018-03-31] MEDS: PIPER-TAZO 3.375 GM IV (PMX) 100 ML IVPB ×2 (05:35→14:23)
[2018-03-31] MEDS: VANCOMYCIN 1.5 GM in SOD CHLORIDE 0.9% 250 ML IVPB ×2 (05:35→17:45)
[2018-03-31 06:41] LABS: ADD MAN DIFF? NO
[2018-03-31 06:45] LABS: ABNORMAL IP MESSAGE 1; BASOPHIL # 0.1 10^3/ul (0.0-0.1); BASOPHILS % 0.4 % (0.0-2.0); EOSINOPHILS # 0.1 10^3/ul (0.0-0.5); EOSINOPHILS % 0.4 % (0.0-7.0); HEMATOCRIT 27.4 % (42.0-52.0); HEMOGLOBIN 9.4 g/dl (14.0-18.0); LYMPHOCYTES # 1.5 10^3/ul (0.8-2.9); LYMPHOCYTES % 12.5 % (15.0-51.0); MEAN CORPUSCULAR HEMOGLOBIN 32.6 pg (29.0-33.0); MEAN CORPUSCULAR HGB CONC 34.3 g/dl (32.0-37.0); MEAN CORPUSCULAR VOLUME 95.1 fl (82.0-101.0); MEAN PLATELET VOLUME 10.6 fl (7.4-10.4); MONOCYTE # 4.6 10^3/ul (0.3-0.9); MONOCYTES % 39.4 % (0.0-11.0); NEUTROPHIL # 5.3 10^3/ul (1.6-7.5); NEUTROPHILS % 45.8 % (39.0-77.0); PLATELET COUNT 264 10^3/UL (140-415); POSITIVE DIFF @See below; RED BLOOD COUNT 2.88 10^6/ul (4.70-6.10); RED CELL DISTRIBUTION WIDTH 13.2 % (11.5-14.5)
[2018-03-31 06:45] LABS: WHITE BLOOD COUNT 11.6 10^3/ul (4.8-10.8)
[2018-03-31] MEDS: INSULIN ASPART [NOVOLOG] 3 ML PEN SC ×7 (07:30→20:17)
[2018-03-31 07:35] LABS: ANION GAP 13 (8-16); BLOOD UREA NITROGEN 32 mg/dl (7-20); CALCIUM 8.9 mg/dl (8.4-10.2); CARBON DIOXIDE 25 mmol/L (21-31); CHLORIDE 102 mmol/L (97-110); CREATININE 1.27 mg/dl (0.61-1.24); GLUCOSE 96 mg/dl (70-220); POTASSIUM 3.8 mmol/L (3.5-5.1); SODIUM 136 mmol/L (135-144)
[2018-03-31] MEDS: ACCU-CHEK XX ×7 (08:22→20:17)
[2018-03-31] MEDS: COLLAGENASE 5 GM (UD JAR) TOP (09:00)
[2018-03-31] MEDS: GABAPENTIN 300 MG CAP PO ×2 (09:00→20:16)
[2018-03-31] MEDS: ASPIRIN 81 MG TAB PO (09:00)
[2018-03-31] MEDS: ENOXAPARIN 40 MG/0.4 ML SYG SC (09:00)
[2018-03-31] MEDS: metFORMIN 850 MG TAB PO ×2 (10:11→17:21)
[2018-03-31] MEDS: ATORVASTATIN 40 MG TAB PO (20:16)
[2018-03-31] MEDS: INSULIN GLARGINE [LANTus] (100 UNITS/ML) SYG SC (20:16)
[2018-03-31] MEDS: DOXAZOSIN 2 MG TAB PO (20:17)
[2018-04-01 04:13] LABS: ADD MAN DIFF? NO
[2018-04-01 04:15] LABS: WHITE BLOOD COUNT 15.2 10^3/ul (4.8-10.8)
[2018-04-01 04:15] LABS: ABNORMAL IP MESSAGE 1; BASOPHIL # 0.1 10^3/ul (0.0-0.1); BASOPHILS % 0.5 % (0.0-2.0); EOSINOPHILS # 0.1 10^3/ul (0.0-0.5); EOSINOPHILS % 0.3 % (0.0-7.0); HEMATOCRIT 26.5 % (42.0-52.0); HEMOGLOBIN 8.9 g/dl (14.0-18.0); LYMPHOCYTES # 1.6 10^3/ul (0.8-2.9); LYMPHOCYTES % 10.2 % (15.0-51.0); MEAN CORPUSCULAR HEMOGLOBIN 32.4 pg (29.0-33.0); MEAN CORPUSCULAR HGB CONC 33.6 g/dl (32.0-37.0); MEAN CORPUSCULAR VOLUME 96.4 fl (82.0-101.0); MEAN PLATELET VOLUME 10.2 fl (7.4-10.4); MONOCYTE # 6.8 10^3/ul (0.3-0.9); MONOCYTES % 44.9 % (0.0-11.0); NEUTROPHIL # 6.5 10^3/ul (1.6-7.5); NEUTROPHILS % 42.8 % (39.0-77.0); PLATELET COUNT 265 10^3/UL (140-415); POSITIVE DIFF @See below; RED BLOOD COUNT 2.75 10^6/ul (4.70-6.10); RED CELL DISTRIBUTION WIDTH 13.2 % (11.5-14.5)
[2018-04-01 04:31] LABS: ANION GAP 10 (8-16); BLOOD UREA NITROGEN 28 mg/dl (7-20); CALCIUM 8.8 mg/dl (8.4-10.2); CARBON DIOXIDE 26 mmol/L (21-31); CHLORIDE 106 mmol/L (97-110); GLUCOSE 114 mg/dl (70-220); POTASSIUM 3.8 mmol/L (3.5-5.1); SODIUM 138 mmol/L (135-144)
[2018-04-01] MEDS: HYDROCODONE/APAP (5/325) TAB PO ×4 (04:33→19:40)
[2018-04-01 04:38] LABS: VANCOMYCIN,TROUGH 23.9 ug/ml (10.0-20.0)
[2018-04-01] MEDS: INSULIN ASPART [NOVOLOG] 3 ML PEN SC ×6 (07:30→18:15)
[2018-04-01] MEDS: ACCU-CHEK XX ×6 (07:30→19:51)
[2018-04-01] MEDS: COLLAGENASE 5 GM (UD JAR) TOP (09:00)
[2018-04-01] MEDS: ASPIRIN 81 MG TAB PO (09:05)
[2018-04-01] MEDS: metFORMIN 850 MG TAB PO ×2 (09:05→18:15)
[2018-04-01] MEDS: GABAPENTIN 300 MG CAP PO (09:05)
[2018-04-01] MEDS: ENOXAPARIN 40 MG/0.4 ML SYG SC (09:06)
[2018-04-01] MEDS: VANCOMYCIN 1.5 GM in SOD CHLORIDE 0.9% 250 ML IVPB (17:00)
[2018-04-01] MEDS: INSULIN GLARGINE [LANTus] (100 UNITS/ML) SYG SC (19:50)
== END 2018-04-01 20:30 | DRG 982 ==
LOC: E/R 12:37 → PP2 13:58
PROC: 0SQN0ZZ Repair Left Metatarsal-Phalangeal Joint, Open Approach (ICD-10-PCS; principal; 2018-03-29 14:44)
PROC: 0QBP0ZZ Excision of Left Metatarsal, Open Approach (ICD-10-PCS; 2018-03-29 14:44)
PROC: 0QBR0ZZ Excision of Left Toe Phalanx, Open Approach (ICD-10-PCS; 2018-03-29 14:44)
DX: L03.116 Cellulitis of left lower limb (principal); E11.52 Type 2 diabetes mellitus with diabetic peripheral angiopathy with gangrene; I96 Gangrene, not elsewhere classified; M86.8X7 Other osteomyelitis, ankle and foot; N17.9 Acute kidney failure, unspecified; E11.621 Type 2 diabetes mellitus with foot ulcer; E11.69 Type 2 diabetes mellitus with other specified complication; E11.628 Type 2 diabetes mellitus with other skin complications; E11.40 Type 2 diabetes mellitus with diabetic neuropathy, unspecified; I10 Essential (primary) hypertension; E78.5 Hyperlipidemia, unspecified; D64.9 Anemia, unspecified; E83.42 Hypomagnesemia; E55.9 Vitamin D deficiency, unspecified
CPT/HCPCS: 36415; 71045; 73630-LT; 80048; 80053; 80202; 81001; 82962; 83540; 83605; 83735; 84484; 85025; 85610; 85730; 86592; 86803; 87040; 87070; 87075; 87086; 87102; 88304; 88311; 90686; 93005; 96374; 97110; 97162; 97530; 99285-25

== ENCOUNTER 2018-05-03 20:05 | Inpatient (IN) | payer OTHER ==
[2018-05-03 20:56] LABS: WHITE BLOOD COUNT 22.1 10^3/ul (4.8-10.8)
[2018-05-03 20:56] LABS: ABNORMAL IP MESSAGE 1; HEMOGLOBIN 8.2 g/dl (14.0-18.0); MEAN CORPUSCULAR HEMOGLOBIN 31.1 pg (29.0-33.0); MEAN CORPUSCULAR HGB CONC 32.8 g/dl (32.0-37.0); MEAN CORPUSCULAR VOLUME 94.7 fl (82.0-101.0); MEAN PLATELET VOLUME 10.2 fl (7.4-10.4); PLATELET COUNT 319 10^3/UL (140-415); POSITIVE DIFF @See below; RED BLOOD COUNT 2.64 10^6/ul (4.70-6.10); RED CELL DISTRIBUTION WIDTH 14.1 % (11.5-14.5)
[2018-05-03] MEDS: CEFEPIME 1GM/50 ML (PMX) 50 ML IVPB (20:56)
[2018-05-03 20:58] LABS: ADD MAN DIFF? YES
[2018-05-03 21:15] LABS: ALANINE AMINOTRANSFERASE 28 IU/L (13-69); ALBUMIN 3.8 g/dl (3.3-4.9); ALBUMIN/GLOBULIN RATIO 0.82; ALKALINE PHOSPHATASE 54 IU/L (42-121); ANION GAP 14 (5-13); ASPARTATE AMINO TRANSFERASE 31 IU/L (15-46); BILIRUBIN,INDIRECT 0.3 mg/dl (0-1.1); BILIRUBIN,TOTAL 0.3 mg/dl (0.2-1.3); BLOOD UREA NITROGEN 63 mg/dl (7-20); CALCIUM 8.9 mg/dl (8.4-10.2); CARBON DIOXIDE 24 mmol/L (21-31); CHLORIDE 98 mmol/L (97-110); CREATININE 2.77 mg/dl (0.61-1.24); Estimated GFR 23 mL/min (>60); GLUCOSE 123 mg/dl (70-220); POTASSIUM 5.2 mmol/L (3.5-5.1); SODIUM 136 mmol/L (135-144); TOTAL PROTEIN 8.4 g/dl (6.1-8.1)
[2018-05-03] MEDS: VANCOMYCIN 1 GM (PMX) 250 ML IVPB (21:27)
[2018-05-03 21:30] LABS: BAND NEUTROPHILS #M 0.4 10^3/ul (0.0-0.6); BAND NEUTROPHILS % (M) 2 % (0-4); LYMPHOCYTES #M 2.4 10^3/ul (0.8-2.9); LYMPHOCYTES % (M) 11 % (15-51); METAMYELOCYTES #M 0.2 10^3/ul (0.0-0.0); METAMYELOCYTES %M 1 % (0-0); MONOCYTE #M 8.6 10^3/ul (0.3-0.9); MONOCYTES % (M) 39 % (0-11); PLATELET ESTIMATE NORMAL; REACTIVE LYMPHOCYTES #M 0.4 10^3/ul (0.0-0.0); REACTIVE LYMPHOCYTES% (M) 2 % (0-0); SEGMENTED NEUTROPHILS (M) % 45 % (39-77); SMUDGE%M 8 % (0-0)
[2018-05-03] MEDS ORDERED: ONDANSETRON 4 MG INJ IV ×2 (22:30→23:00)
[2018-05-03] MEDS ORDERED: ACETAMINOPHEN 325 MG TAB PO ×2 (22:30→23:00)
[2018-05-03] MEDS ORDERED: DOCUSATE SODIUM 100 MG CAP PO (23:00)
[2018-05-03] MEDS ORDERED: BISACODYL (EC) 5 MG TAB PO (23:00)
[2018-05-04] MEDS: HYDROCODONE/APAP (5/325) TAB PO ×3 (00:51→23:18)
[2018-05-04] MEDS: SOD CHLORIDE 0.9% 1,000 ML IV ×2 (00:59→03:18)
[2018-05-04 01:07] LABS: OSMOLALITY 299 mOsm/kg (280-295)
[2018-05-04] MEDS ORDERED: GLUCOSE GEL 15 GRAM TUBE PO ×2 (03:00)
[2018-05-04] MEDS ORDERED: GLUCAGON 1 MG INJ IM (03:00)
[2018-05-04] MEDS ORDERED: GLUCOSE GEL 15 GRAM TUBE BUCCAL (03:00)
[2018-05-04] MEDS ORDERED: DEXTROSE 50% 50 ML SYRINGE IV ×2 (03:00)
[2018-05-04 05:34] LABS: ADD MAN DIFF? NO
[2018-05-04 05:36] LABS: ABNORMAL IP MESSAGE 1; BASOPHILS % 0.2 % (0.0-2.0); EOSINOPHILS % 0.2 % (0.0-7.0); HEMATOCRIT 22.7 % (42.0-52.0); HEMOGLOBIN 7.4 g/dl (14.0-18.0); LYMPHOCYTES # 1.4 10^3/ul (0.8-2.9); LYMPHOCYTES % 7.1 % (15.0-51.0); MEAN CORPUSCULAR HEMOGLOBIN 30.8 pg (29.0-33.0); MEAN CORPUSCULAR HGB CONC 32.6 g/dl (32.0-37.0); MEAN CORPUSCULAR VOLUME 94.6 fl (82.0-101.0); MEAN PLATELET VOLUME 9.8 fl (7.4-10.4); MONOCYTE # 9.3 10^3/ul (0.3-0.9); MONOCYTES % 47.6 % (0.0-11.0); NEUTROPHIL # 8.6 10^3/ul (1.6-7.5); NEUTROPHILS % 43.9 % (39.0-77.0); PLATELET COUNT 278 10^3/UL (140-415); POSITIVE DIFF @See below; RED CELL DISTRIBUTION WIDTH 13.9 % (11.5-14.5)
[2018-05-04 05:36] LABS: WHITE BLOOD COUNT 19.5 10^3/ul (4.8-10.8)
[2018-05-04 06:06] LABS: ALANINE AMINOTRANSFERASE 32 IU/L (13-69); ALBUMIN 3.3 g/dl (3.3-4.9); ALBUMIN/GLOBULIN RATIO 0.94; ALKALINE PHOSPHATASE 54 IU/L (42-121); ANION GAP 10 (5-13); ASPARTATE AMINO TRANSFERASE 27 IU/L (15-46); BILIRUBIN,INDIRECT 0.3 mg/dl (0-1.1); BILIRUBIN,TOTAL 0.3 mg/dl (0.2-1.3); BLOOD UREA NITROGEN 51 mg/dl (7-20); CALCIUM 8.3 mg/dl (8.4-10.2); CARBON DIOXIDE 24 mmol/L (21-31); CHLORIDE 102 mmol/L (97-110); CREATININE 2.64 mg/dl (0.61-1.24); Estimated GFR 24 mL/min (>60); GLUCOSE 88 mg/dl (70-220); MAGNESIUM 1.5 mg/dl (1.7-2.5); POTASSIUM 4.5 mmol/L (3.5-5.1); SODIUM 136 mmol/L (135-144); TOTAL PROTEIN 6.8 g/dl (6.1-8.1)
[2018-05-04] MEDS: INSULIN ASPART [NOVOLOG] 3 ML PEN SC ×7 (08:00→21:00)
[2018-05-04] MEDS: LINEZOLID 600 MG/D5W (PMX) 300 ML IVPB ×2 (08:42→20:46)
[2018-05-04] MEDS: ASPIRIN (EC) 81 MG TAB PO (08:42)
[2018-05-04] MEDS: LOSARTAN 50 MG TAB PO (08:43)
[2018-05-04] MEDS: HYDROCHLOROTHIAZIDE 25 MG TAB PO (08:43)
[2018-05-04] MEDS: AMLODIPINE 2.5 MG TAB PO (08:43)
[2018-05-04] MEDS: GABAPENTIN 300 MG CAP PO ×2 (08:43→20:49)
[2018-05-04 10:21] LABS: IRON 23 ug/dl (35-150)
[2018-05-04 10:30] LABS: % IRON SATURATION 10 % SAT (22-52); TOTAL IRON BINDING CAPACITY 223 ug/dl (241-421)
[2018-05-04] MEDS: MAGNESIUM SULFATE 1 GM/D5W 100 ML IVPB (11:16)
[2018-05-04 11:25] LABS: T4 (THYROXINE) 5.3 ug/dl (5.5-11.0)
[2018-05-04 16:54] LABS: ADD UMIC YES; UR ASCORBIC ACID NEGATIVE (NEGATIVE); UR BACTERIA FEW /HPF (NONE SEEN); UR BILIRUBIN (Dip) NEGATIVE (NEGATIVE); UR BLOOD (Dip) 1+ mg/dL (NEGATIVE); UR CLARITY CLOUDY (CLEAR); UR COLOR YELLOW (YELLOW); UR GLUCOSE (Dip) NEGATIVE (NEGATIVE); UR KETONES (Dip) NEGATIVE (NEGATIVE); UR LEUKOCYTE ESTERASE (Dip) NEGATIVE Leu/ul (NEGATIVE); UR NITRITE (Dip) NEGATIVE (NEGATIVE); UR RBC 1 /HPF (0-5); UR TOTAL PROTEIN (Dip) NEGATIVE (NEGATIVE); UR URIC ACID CRYSTAL MANY /HPF (NONE SEEN); UR UROBILINOGEN (Dip) NEGATIVE (NEGATIVE); UR WBC 3 /HPF (0-5)
[2018-05-04 16:57] LABS: SODIUM,URINE RANDOM 93 mmol/L (30-90)
[2018-05-04 16:59] LABS: CREATININE,URINE RANDOM 45.67 mg/dl (20-370); PROTEIN/CREAT RATIO 0.65 RATIO
[2018-05-04 16:59] LABS: OSMOLALITY,URINE 401 mOsm/kg (250-1200)
[2018-05-04] MEDS: SOD FERRIC GLUC COMPLX 125 MG in SOD CHLORIDE 0.9% 100 ML IVPB (17:44)
[2018-05-04] MEDS ORDERED: INSULIN GLARGINE 22 UNIT SC (20:00)
[2018-05-04] MEDS: ATORVASTATIN 10 MG TAB PO (20:46)
[2018-05-04] MEDS: INSULIN GLARGINE [LANTus] (100 UNITS/ML) SYG SC (20:50)
[2018-05-05] MEDS: SOD CHLORIDE 0.9% IVPB (00:55)
[2018-05-05] MEDS: DAPTOMYCIN IVPB (00:55)
[2018-05-05] MEDS: ACCU-CHEK XX (02:00)
[2018-05-05] MEDS: PIPER-TAZO 2.25 GM (PMX) 50 ML IVPB ×4 (02:01→22:15)
[2018-05-05 06:26] LABS: ADD MAN DIFF? NO
[2018-05-05 06:32] LABS: WHITE BLOOD COUNT 19.7 10^3/ul (4.8-10.8)
[2018-05-05 06:32] LABS: ABNORMAL IP MESSAGE 1; BASOPHIL # 0.1 10^3/ul (0.0-0.1); BASOPHILS % 0.3 % (0.0-2.0); EOSINOPHILS # 0.1 10^3/ul (0.0-0.5); EOSINOPHILS % 0.4 % (0.0-7.0); HEMATOCRIT 22.8 % (42.0-52.0); HEMOGLOBIN 7.5 g/dl (14.0-18.0); LYMPHOCYTES # 1.5 10^3/ul (0.8-2.9); LYMPHOCYTES % 7.5 % (15.0-51.0); MEAN CORPUSCULAR HGB CONC 32.9 g/dl (32.0-37.0); MEAN CORPUSCULAR VOLUME 94.2 fl (82.0-101.0); MEAN PLATELET VOLUME 10.2 fl (7.4-10.4); MONOCYTE # 9.4 10^3/ul (0.3-0.9); MONOCYTES % 47.9 % (0.0-11.0); NEUTROPHIL # 8.4 10^3/ul (1.6-7.5); NEUTROPHILS % 42.7 % (39.0-77.0); PLATELET COUNT 286 10^3/UL (140-415); POSITIVE DIFF @See below; RED BLOOD COUNT 2.42 10^6/ul (4.70-6.10); RED CELL DISTRIBUTION WIDTH 14.2 % (11.5-14.5)
[2018-05-05 06:52] LABS: ANION GAP 11 (5-13); BLOOD UREA NITROGEN 42 mg/dl (7-20); CALCIUM 8.2 mg/dl (8.4-10.2); CARBON DIOXIDE 24 mmol/L (21-31); CHLORIDE 99 mmol/L (97-110); CREATININE 2.78 mg/dl (0.61-1.24); Estimated GFR 23 mL/min (>60); GLUCOSE 86 mg/dl (70-220); MAGNESIUM 1.6 mg/dl (1.7-2.5); POTASSIUM 4.2 mmol/L (3.5-5.1); SODIUM 134 mmol/L (135-144)
[2018-05-05] MEDS ORDERED: CEFAZOLIN 1 GM INJ (07:00)
[2018-05-05 07:22] LABS: CREATINE KINASE 23 IU/L (23-200)
[2018-05-05] MEDS: INSULIN ASPART [NOVOLOG] 3 ML PEN SC ×7 (07:35→21:00)
[2018-05-05 07:54] LABS: ERYTHROCYTE SEDIMENTATION RATE 130 mm/Hr (0-20)
[2018-05-05] MEDS: ASPIRIN (EC) 81 MG TAB PO (09:00)
[2018-05-05] MEDS: GABAPENTIN 300 MG CAP PO ×2 (09:00→20:47)
[2018-05-05] MEDS: AMLODIPINE 5 MG TAB PO (09:00)
[2018-05-05] MEDS: MAGNESIUM SULFATE 1 GM/D5W 100 ML IVPB (09:49)
[2018-05-05 12:07] LABS: ADD UMIC YES; UR ASCORBIC ACID NEGATIVE (NEGATIVE); UR BILIRUBIN (Dip) NEGATIVE (NEGATIVE); UR BLOOD (Dip) 1+ mg/dL (NEGATIVE); UR CLARITY SLIGHTLY CLOUDY (CLEAR); UR COLOR STRAW (YELLOW); UR GLUCOSE (Dip) NEGATIVE (NEGATIVE); UR KETONES (Dip) NEGATIVE (NEGATIVE); UR LEUKOCYTE ESTERASE (Dip) NEGATIVE Leu/ul (NEGATIVE); UR NITRITE (Dip) NEGATIVE (NEGATIVE); UR RBC 0 /HPF (0-5); UR TOTAL PROTEIN (Dip) NEGATIVE (NEGATIVE); UR UROBILINOGEN (Dip) NEGATIVE (NEGATIVE); UR WBC 1 /HPF (0-5)
[2018-05-05] MEDS: SOD CHLORIDE 0.9% 250 ML IV* (12:12)
[2018-05-05] MEDS ORDERED: LIDOCAINE 1% (STERILE-PAK) 30 ML INJ (16:50)
[2018-05-05] MEDS ORDERED: DEXAMETHASONE 4 MG/ML 1 ML INJ (16:50)
[2018-05-05] MEDS ORDERED: BUPIVACAINE 0.5% (SDV) 30 ML INJ (16:50)
[2018-05-05] MEDS ORDERED: POVIDONE IODINE 10% 28.4 GM OINT (16:51)
[2018-05-05] MEDS ORDERED: POLYMYXIN B 500000 UNIT INJ (16:55)
[2018-05-05] MEDS: SOD FERRIC GLUC COMPLX 125 MG in SOD CHLORIDE 0.9% 100 ML IVPB ×2 (17:00)
[2018-05-05] MEDS ORDERED: ETOMIDATE 20 MG INJ (17:34)
[2018-05-05] MEDS ORDERED: LIDOCAINE 2% (SDV) 5 ML INJ ×4 (17:34→18:09)
[2018-05-05] MEDS ORDERED: PROPOFOL 0 ML (17:34)
[2018-05-05] MEDS ORDERED: MIDAZOLAM 1 MG/ML 2 ML INJ (17:38)
[2018-05-05] MEDS ORDERED: FENTAnyl 50 MCG/ML VIAL (17:52)
[2018-05-05] MEDS ORDERED: ROPIVACAINE 0.5 % 30 ML VIAL (17:57)
[2018-05-05] MEDS ORDERED: PROPOFOL 100 ML (18:08)
[2018-05-05] MEDS: POLYMYXIN/BACITRACIN 1L IRRIG IRR (18:56)
[2018-05-05 19:55] LABS: HEMATOCRIT 23.2 % (42.0-52.0); HEMOGLOBIN 7.7 g/dl (14.0-18.0)
[2018-05-05] MEDS: INSULIN GLARGINE [LANTus] (100 UNITS/ML) SYG SC (20:00)
[2018-05-05] MEDS: ATORVASTATIN 10 MG TAB PO (20:47)
[2018-05-05] MEDS: HYDROCODONE/APAP (5/325) TAB PO (22:50)
[2018-05-06] MEDS: ACCU-CHEK XX (02:00)
[2018-05-06] MEDS: morphine 2 MG INJ IV ×3 (02:12→15:00)
[2018-05-06] MEDS: PIPER-TAZO 2.25 GM (PMX) 50 ML IVPB ×3 (05:08→21:39)
[2018-05-06 07:23] LABS: ADD MAN DIFF? NO
[2018-05-06 07:24] LABS: ABNORMAL IP MESSAGE 1; BASOPHIL # 0.1 10^3/ul (0.0-0.1); BASOPHILS % 0.3 % (0.0-2.0); EOSINOPHILS # 0.1 10^3/ul (0.0-0.5); EOSINOPHILS % 0.4 % (0.0-7.0); HEMATOCRIT 21.5 % (42.0-52.0); LYMPHOCYTES % 5.2 % (15.0-51.0); MEAN CORPUSCULAR HEMOGLOBIN 30.4 pg (29.0-33.0); MEAN CORPUSCULAR HGB CONC 32.6 g/dl (32.0-37.0); MEAN CORPUSCULAR VOLUME 93.5 fl (82.0-101.0); MONOCYTE # 8.9 10^3/ul (0.3-0.9); MONOCYTES % 46.2 % (0.0-11.0); NEUTROPHIL # 9.1 10^3/ul (1.6-7.5); PLATELET COUNT 284 10^3/UL (140-415); POSITIVE DIFF @See below; RED CELL DISTRIBUTION WIDTH 15.2 % (11.5-14.5)
[2018-05-06 07:24] LABS: WHITE BLOOD COUNT 19.3 10^3/ul (4.8-10.8)
[2018-05-06 07:48] LABS: ANION GAP 10 (5-13); BLOOD UREA NITROGEN 42 mg/dl (7-20); CALCIUM 8.3 mg/dl (8.4-10.2); CARBON DIOXIDE 23 mmol/L (21-31); CHLORIDE 102 mmol/L (97-110); CREATININE 2.85 mg/dl (0.61-1.24); Estimated GFR 22 mL/min (>60); GLUCOSE 124 mg/dl (70-220); MAGNESIUM 1.8 mg/dl (1.7-2.5); PHOSPHORUS 4.7 mg/dl (2.5-4.9); POTASSIUM 4.5 mmol/L (3.5-5.1); SODIUM 135 mmol/L (135-144)
[2018-05-06] MEDS: HYDROCODONE/APAP (5/325) TAB PO ×2 (08:00→14:17)
[2018-05-06] MEDS: INSULIN ASPART [NOVOLOG] 3 ML PEN SC ×4 (08:00→20:22)
[2018-05-06] MEDS: SOD CHLORIDE 0.9% 1,000 ML IV (08:30)
[2018-05-06] MEDS: AMLODIPINE 5 MG TAB PO (09:00)
[2018-05-06] MEDS: GABAPENTIN 300 MG CAP PO ×2 (09:29→20:13)
[2018-05-06] MEDS: ASPIRIN (EC) 81 MG TAB PO (09:29)
[2018-05-06 16:16] LABS: CREATININE, RANDOM URINE 45 mg/dL (20-320); MICROALBUMIN 2.6 mg/dL; MICROALBUMIN/CREATININE RATIO 58 (<30)
[2018-05-06] MEDS: SOD FERRIC GLUC COMPLX 125 MG in SOD CHLORIDE 0.9% 100 ML IVPB (20:12)
[2018-05-06] MEDS: ATORVASTATIN 10 MG TAB PO (20:14)
[2018-05-06] MEDS: INSULIN GLARGINE [LANTus] (100 UNITS/ML) SYG SC (20:16)
[2018-05-07] MEDS: SOD CHLORIDE 0.9% IVPB (01:30)
[2018-05-07] MEDS: DAPTOMYCIN IVPB (01:30)
[2018-05-07] MEDS: ACCU-CHEK XX (01:39)
[2018-05-07] MEDS: SOD CHLORIDE 0.9% 1,000 ML IV (04:30)
[2018-05-07] MEDS: PIPER-TAZO 2.25 GM (PMX) 50 ML IVPB (05:24)
[2018-05-07 06:21] LABS: ADD MAN DIFF? NO
[2018-05-07 06:27] LABS: ABNORMAL IP MESSAGE 1; BASOPHIL # 0.1 10^3/ul (0.0-0.1); BASOPHILS % 0.3 % (0.0-2.0); EOSINOPHILS # 0.1 10^3/ul (0.0-0.5); EOSINOPHILS % 0.4 % (0.0-7.0); HEMATOCRIT 20.2 % (42.0-52.0); LYMPHOCYTES # 1.2 10^3/ul (0.8-2.9); LYMPHOCYTES % 6.3 % (15.0-51.0); MEAN CORPUSCULAR HEMOGLOBIN 30.7 pg (29.0-33.0); MEAN CORPUSCULAR HGB CONC 32.7 g/dl (32.0-37.0); MEAN PLATELET VOLUME 10.3 fl (7.4-10.4); MONOCYTE # 9.9 10^3/ul (0.3-0.9); MONOCYTES % 50.9 % (0.0-11.0); NEUTROPHIL # 7.9 10^3/ul (1.6-7.5); NEUTROPHILS % 40.7 % (39.0-77.0); PLATELET COUNT 263 10^3/UL (140-415); POSITIVE DIFF @See below; RED BLOOD COUNT 2.15 10^6/ul (4.70-6.10); RED CELL DISTRIBUTION WIDTH 14.8 % (11.5-14.5)
[2018-05-07 06:27] LABS: WHITE BLOOD COUNT 19.4 10^3/ul (4.8-10.8)
[2018-05-07 06:51] LABS: HEMOGLOBIN 6.6 g/dl (14.0-18.0); PATH REVIEW? YES
[2018-05-07 07:01] LABS: ANION GAP 8 (5-13); BLOOD UREA NITROGEN 39 mg/dl (7-20); CALCIUM 7.8 mg/dl (8.4-10.2); CARBON DIOXIDE 24 mmol/L (21-31); CHLORIDE 103 mmol/L (97-110); CREATININE 2.73 mg/dl (0.61-1.24); Estimated GFR 23 mL/min (>60); GLUCOSE 233 mg/dl (70-220); MAGNESIUM 1.8 mg/dl (1.7-2.5); PHOSPHORUS 4.2 mg/dl (2.5-4.9); POTASSIUM 4.4 mmol/L (3.5-5.1); SODIUM 135 mmol/L (135-144)
[2018-05-07] MEDS: INSULIN ASPART [NOVOLOG] 3 ML PEN SC ×4 (08:15→20:18)
[2018-05-07 09:02] LABS: EOSINOPHILS % (M) 1 % (0-7); GIANT THROMBO% (M) 1 % (0-0); LYMPHOCYTES #M 1.9 10^3/ul (0.8-2.9); LYMPHOCYTES % (M) 10 % (15-51); MONOCYTE #M 6.9 10^3/ul (0.3-0.9); MONOCYTES % (M) 36 % (0-11); MYELOCYTES #M 0.3 10^3/ul (0.0-0.0); MYELOCYTES % (M) 2 % (0-0); PLATELET ESTIMATE NORMAL; POLYCHROMASIA 1+ (0-0); SEGMENTED NEUTROPHILS (M) % 51 % (39-77); SMUDGE%M 6 % (0-0)
[2018-05-07] MEDS: ASPIRIN (EC) 81 MG TAB PO (09:45)
[2018-05-07] MEDS: GABAPENTIN 300 MG CAP PO ×2 (09:45→20:20)
[2018-05-07] MEDS: AMLODIPINE 5 MG TAB PO (09:46)
[2018-05-07 16:39] LABS: IMMEDIATE SPIN CROSSMATCH 1 3
[2018-05-07] MEDS: INSULIN GLARGINE [LANTus] (100 UNITS/ML) SYG SC (20:19)
[2018-05-07] MEDS: ATORVASTATIN 10 MG TAB PO (20:20)
[2018-05-07] MEDS: DOCUSATE SODIUM 100 MG CAP PO (20:20)
[2018-05-07] MEDS: MEROPENEM 500MG/50 ML (PMX) 50 ML IVPB (20:34)
[2018-05-07] MEDS: SOD FERRIC GLUC COMPLX 125 MG in SOD CHLORIDE 0.9% 100 ML IVPB (21:25)
[2018-05-08] MEDS: SOD CHLORIDE 0.9% 1,000 ML IV ×2 (00:30→02:12)
[2018-05-08] MEDS: ACCU-CHEK XX (02:00)
[2018-05-08] MEDS: morphine 2 MG INJ IV (02:39)
[2018-05-08] MEDS: HYDROCODONE/APAP (5/325) TAB PO ×3 (02:45→22:35)
[2018-05-08] MEDS: INSULIN ASPART [NOVOLOG] 3 ML PEN SC ×8 (03:28→20:37)
[2018-05-08 06:10] LABS: ADD MAN DIFF? NO
[2018-05-08 06:17] LABS: WHITE BLOOD COUNT 20.7 10^3/ul (4.8-10.8)
[2018-05-08 06:17] LABS: ABNORMAL IP MESSAGE 1; BASOPHIL # 0.1 10^3/ul (0.0-0.1); BASOPHILS % 0.4 % (0.0-2.0); EOSINOPHILS # 0.1 10^3/ul (0.0-0.5); EOSINOPHILS % 0.5 % (0.0-7.0); HEMATOCRIT 24.3 % (42.0-52.0); LYMPHOCYTES # 1.5 10^3/ul (0.8-2.9); LYMPHOCYTES % 7.3 % (15.0-51.0); MEAN CORPUSCULAR HEMOGLOBIN 30.4 pg (29.0-33.0); MEAN CORPUSCULAR HGB CONC 32.9 g/dl (32.0-37.0); MEAN CORPUSCULAR VOLUME 92.4 fl (82.0-101.0); MONOCYTE # 8.6 10^3/ul (0.3-0.9); MONOCYTES % 41.5 % (0.0-11.0); NEUTROPHIL # 9.8 10^3/ul (1.6-7.5); NEUTROPHILS % 47.4 % (39.0-77.0); PLATELET COUNT 253 10^3/UL (140-415); POSITIVE DIFF @See below; RED BLOOD COUNT 2.63 10^6/ul (4.70-6.10); RED CELL DISTRIBUTION WIDTH 14.5 % (11.5-14.5)
[2018-05-08 06:28] LABS: ANION GAP 11 (5-13); BLOOD UREA NITROGEN 34 mg/dl (7-20); CALCIUM 7.8 mg/dl (8.4-10.2); CARBON DIOXIDE 22 mmol/L (21-31); CHLORIDE 104 mmol/L (97-110); CREATININE 2.62 mg/dl (0.61-1.24); Estimated GFR 24 mL/min (>60); GLUCOSE 156 mg/dl (70-220); MAGNESIUM 1.6 mg/dl (1.7-2.5); PHOSPHORUS 3.4 mg/dl (2.5-4.9); POTASSIUM 4.5 mmol/L (3.5-5.1); SODIUM 137 mmol/L (135-144)
[2018-05-08] MEDS: ASPIRIN (EC) 81 MG TAB PO (08:22)
[2018-05-08] MEDS: GABAPENTIN 300 MG CAP PO ×2 (08:22→20:37)
[2018-05-08] MEDS: DOCUSATE SODIUM 100 MG CAP PO ×3 (08:22→21:00)
[2018-05-08] MEDS: AMLODIPINE 5 MG TAB PO (08:22)
[2018-05-08] MEDS: MEROPENEM 500MG/50 ML (PMX) 50 ML IVPB ×2 (08:29→20:42)
[2018-05-08] MEDS: MAGNESIUM SULFATE 2 GM/50 ML 50 ML IVPB (12:46)
[2018-05-08] MEDS: SOD FERRIC GLUC COMPLX 125 MG in SOD CHLORIDE 0.9% 100 ML IVPB (16:38)
[2018-05-08] MEDS: EPOETIN ALFA (NESRD) 3,000 UNITS/ML VIAL SC (16:39)
[2018-05-08] MEDS: INSULIN GLARGINE [LANTus] (100 UNITS/ML) SYG SC (20:36)
[2018-05-08] MEDS: ATORVASTATIN 10 MG TAB PO (20:37)
[2018-05-09] MEDS: ACCU-CHEK XX (02:00)
[2018-05-09] MEDS: SOD CHLORIDE 0.9% 1,000 ML IV ×2 (02:43→09:55)
[2018-05-09 05:17] LABS: ADD MAN DIFF? NO
[2018-05-09 05:19] LABS: WHITE BLOOD COUNT 17.6 10^3/ul (4.8-10.8)
[2018-05-09 05:19] LABS: ABNORMAL IP MESSAGE 1; BASOPHIL # 0.1 10^3/ul (0.0-0.1); BASOPHILS % 0.4 % (0.0-2.0); EOSINOPHILS # 0.1 10^3/ul (0.0-0.5); EOSINOPHILS % 0.8 % (0.0-7.0); HEMATOCRIT 24.4 % (42.0-52.0); HEMOGLOBIN 8.1 g/dl (14.0-18.0); LYMPHOCYTES # 1.8 10^3/ul (0.8-2.9); LYMPHOCYTES % 10.3 % (15.0-51.0); MEAN CORPUSCULAR HEMOGLOBIN 30.8 pg (29.0-33.0); MEAN CORPUSCULAR HGB CONC 33.2 g/dl (32.0-37.0); MEAN CORPUSCULAR VOLUME 92.8 fl (82.0-101.0); MEAN PLATELET VOLUME 9.6 fl (7.4-10.4); MONOCYTE # 6.1 10^3/ul (0.3-0.9); MONOCYTES % 34.6 % (0.0-11.0); NEUTROPHIL # 8.7 10^3/ul (1.6-7.5); NEUTROPHILS % 49.5 % (39.0-77.0); PLATELET COUNT 258 10^3/UL (140-415); POSITIVE DIFF @See below; RED BLOOD COUNT 2.63 10^6/ul (4.70-6.10); RED CELL DISTRIBUTION WIDTH 14.1 % (11.5-14.5)
[2018-05-09 06:07] LABS: ANION GAP 11 (5-13); BLOOD UREA NITROGEN 28 mg/dl (7-20); CARBON DIOXIDE 22 mmol/L (21-31); CHLORIDE 103 mmol/L (97-110); CREATININE 2.26 mg/dl (0.61-1.24); Estimated GFR 29 mL/min (>60); GLUCOSE 91 mg/dl (70-220); POTASSIUM 4.2 mmol/L (3.5-5.1); SODIUM 136 mmol/L (135-144)
[2018-05-09] MEDS: INSULIN ASPART [NOVOLOG] 3 ML PEN SC ×7 (08:00→20:18)
[2018-05-09] MEDS: DOCUSATE SODIUM 100 MG CAP PO ×2 (09:00→20:16)
[2018-05-09] MEDS: ASPIRIN (EC) 81 MG TAB PO (09:01)
[2018-05-09] MEDS: GABAPENTIN 300 MG CAP PO ×2 (09:02→20:16)
[2018-05-09] MEDS: AMLODIPINE 5 MG TAB PO (09:02)
[2018-05-09] MEDS: MEROPENEM 500MG/50 ML (PMX) 50 ML IVPB ×2 (09:50→20:55)
[2018-05-09] MEDS: morphine 2 MG INJ IV (11:42)
[2018-05-09] MEDS: HYDROCODONE/APAP (10/325) TAB PO ×2 (12:59→19:16)
[2018-05-09] MEDS: SOD FERRIC GLUC COMPLX 125 MG in SOD CHLORIDE 0.9% 100 ML IVPB (16:30)
[2018-05-09] MEDS: INSULIN GLARGINE [LANTus] (100 UNITS/ML) SYG SC (20:19)
[2018-05-09] MEDS: ATORVASTATIN 10 MG TAB PO (20:21)
[2018-05-10] MEDS: HYDROCODONE/APAP (10/325) TAB PO ×3 (02:23→20:27)
[2018-05-10] MEDS: ACCU-CHEK XX (02:41)
[2018-05-10] MEDS: SOD CHLORIDE 0.9% 1,000 ML IV (02:55)
[2018-05-10 05:36] LABS: ADD MAN DIFF? NO
[2018-05-10 05:47] LABS: ABNORMAL IP MESSAGE 1; BASOPHIL # 0.1 10^3/ul (0.0-0.1); BASOPHILS % 0.4 % (0.0-2.0); EOSINOPHILS # 0.1 10^3/ul (0.0-0.5); EOSINOPHILS % 0.6 % (0.0-7.0); HEMATOCRIT 24.6 % (42.0-52.0); HEMOGLOBIN 8.1 g/dl (14.0-18.0); LYMPHOCYTES # 2.4 10^3/ul (0.8-2.9); LYMPHOCYTES % 11.2 % (15.0-51.0); MEAN CORPUSCULAR HEMOGLOBIN 31.3 pg (29.0-33.0); MEAN CORPUSCULAR HGB CONC 32.9 g/dl (32.0-37.0); MEAN PLATELET VOLUME 9.5 fl (7.4-10.4); MONOCYTE # 8.2 10^3/ul (0.3-0.9); MONOCYTES % 37.9 % (0.0-11.0); NEUTROPHIL # 9.9 10^3/ul (1.6-7.5); NEUTROPHILS % 45.5 % (39.0-77.0); PLATELET COUNT 294 10^3/UL (140-415); POSITIVE DIFF @See below; RED BLOOD COUNT 2.59 10^6/ul (4.70-6.10); RED CELL DISTRIBUTION WIDTH 14.1 % (11.5-14.5)
[2018-05-10 05:47] LABS: WHITE BLOOD COUNT 21.7 10^3/ul (4.8-10.8)
[2018-05-10 06:35] LABS: ANION GAP 9 (5-13); BLOOD UREA NITROGEN 26 mg/dl (7-20); CALCIUM 8.1 mg/dl (8.4-10.2); CARBON DIOXIDE 25 mmol/L (21-31); CHLORIDE 103 mmol/L (97-110); CREATININE 2.42 mg/dl (0.61-1.24); Estimated GFR 27 mL/min (>60); GLUCOSE 73 mg/dl (70-220); POTASSIUM 4.7 mmol/L (3.5-5.1); SODIUM 137 mmol/L (135-144)
[2018-05-10] MEDS: INSULIN ASPART [NOVOLOG] 3 ML PEN SC ×7 (07:35→20:28)
[2018-05-10] MEDS: AMLODIPINE 5 MG TAB PO (08:35)
[2018-05-10] MEDS: MEROPENEM 500MG/50 ML (PMX) 50 ML IVPB ×2 (08:35→20:30)
[2018-05-10] MEDS: GABAPENTIN 300 MG CAP PO ×2 (08:35→20:27)
[2018-05-10] MEDS: DOCUSATE SODIUM 100 MG CAP PO ×3 (08:35→20:28)
[2018-05-10] MEDS: ASPIRIN (EC) 81 MG TAB PO (08:36)
[2018-05-10] MEDS: CEFTRIAXONE 1 GM/50 ML (PMX) 50 ML IVPB (15:47)
[2018-05-10] MEDS: INSULIN GLARGINE [LANTus] (100 UNITS/ML) SYG SC (20:26)
[2018-05-10] MEDS: ATORVASTATIN 10 MG TAB PO (20:27)
[2018-05-10] MEDS: NACL 0.9% 3 ML SYG IV (20:28)
[2018-05-11] MEDS: ACCU-CHEK XX (01:46)
[2018-05-11] MEDS: HYDROCODONE/APAP (10/325) TAB PO ×4 (02:11→20:05)
[2018-05-11 06:03] LABS: ADD MAN DIFF? NO
[2018-05-11 06:11] LABS: ABNORMAL IP MESSAGE 1; BASOPHIL # 0.1 10^3/ul (0.0-0.1); BASOPHILS % 0.4 % (0.0-2.0); EOSINOPHILS # 0.1 10^3/ul (0.0-0.5); EOSINOPHILS % 0.4 % (0.0-7.0); HEMATOCRIT 24.4 % (42.0-52.0); HEMOGLOBIN 7.9 g/dl (14.0-18.0); LYMPHOCYTES % 9.5 % (15.0-51.0); MEAN CORPUSCULAR HEMOGLOBIN 30.5 pg (29.0-33.0); MEAN CORPUSCULAR HGB CONC 32.4 g/dl (32.0-37.0); MEAN CORPUSCULAR VOLUME 94.2 fl (82.0-101.0); MEAN PLATELET VOLUME 9.6 fl (7.4-10.4); MONOCYTE # 8.4 10^3/ul (0.3-0.9); MONOCYTES % 38.7 % (0.0-11.0); NEUTROPHIL # 10.1 10^3/ul (1.6-7.5); NEUTROPHILS % 46.7 % (39.0-77.0); PLATELET COUNT 281 10^3/UL (140-415); POSITIVE DIFF @See below; RED BLOOD COUNT 2.59 10^6/ul (4.70-6.10); RED CELL DISTRIBUTION WIDTH 13.9 % (11.5-14.5)
[2018-05-11 06:11] LABS: WHITE BLOOD COUNT 21.6 10^3/ul (4.8-10.8)
[2018-05-11 06:39] LABS: ANION GAP 10 (5-13); BLOOD UREA NITROGEN 31 mg/dl (7-20); CALCIUM 8.2 mg/dl (8.4-10.2); CARBON DIOXIDE 23 mmol/L (21-31); CHLORIDE 102 mmol/L (97-110); CREATININE 2.23 mg/dl (0.61-1.24); Estimated GFR 29 mL/min (>60); GLUCOSE 81 mg/dl (70-220); POTASSIUM 4.7 mmol/L (3.5-5.1); SODIUM 135 mmol/L (135-144)
[2018-05-11] MEDS: INSULIN ASPART [NOVOLOG] 3 ML PEN SC ×7 (07:35→18:38)
[2018-05-11] MEDS: ASPIRIN (EC) 81 MG TAB PO (08:13)
[2018-05-11] MEDS: DOCUSATE SODIUM 100 MG CAP PO ×3 (08:13→20:01)
[2018-05-11] MEDS: GABAPENTIN 300 MG CAP PO ×2 (08:13→20:00)
[2018-05-11] MEDS: AMLODIPINE 5 MG TAB PO (08:14)
[2018-05-11] MEDS: MEROPENEM 500MG/50 ML (PMX) 50 ML IVPB (08:18)
[2018-05-11] MEDS: morphine LIQ (10 MG/5 ML) CUP PO (11:18)
[2018-05-11] MEDS: CEFTRIAXONE 1 GM/50 ML (PMX) 50 ML IVPB (16:12)
[2018-05-11] MEDS: EPOETIN ALFA (NESRD) 3,000 UNITS/ML VIAL SC (16:14)
[2018-05-11] MEDS: LIDOCAINE 1% (MPF) 5 ML VIAL SC (17:40)
[2018-05-11] MEDS: SOD CHLORIDE 0.9% 100 ML (17:50)
[2018-05-11] MEDS: INSULIN GLARGINE [LANTus] (100 UNITS/ML) SYG SC (20:00)
== END 2018-05-11 21:09 | DRG 853 ==
LOC: E/R 20:05 → PP2 22:02
PROC: 0Y6N0Z9 Detachment at Left Foot, Partial 1st Ray, Open Approach (ICD-10-PCS; principal; 2018-05-05 16:00)
PROC: 0Y6N0ZB Detachment at Left Foot, Partial 2nd Ray, Open Approach (ICD-10-PCS; 2018-05-05 16:00)
PROC: 0Y6N0ZC Detachment at Left Foot, Partial 3rd Ray, Open Approach (ICD-10-PCS; 2018-05-05 16:00)
PROC: 0Y6N0ZD Detachment at Left Foot, Partial 4th Ray, Open Approach (ICD-10-PCS; 2018-05-05 16:00)
PROC: 0Y6N0ZF Detachment at Left Foot, Partial 5th Ray, Open Approach (ICD-10-PCS; 2018-05-05 16:00)
PROC: 0HRNXK3 Replacement of Left Foot Skin with Nonautologous Tissue Substitute, Full Thickness, External Approach (ICD-10-PCS; 2018-05-05 16:00)
PROC: 30233N1 Transfusion of Nonautologous Red Blood Cells into Peripheral Vein, Percutaneous Approach (ICD-10-PCS; 2018-05-05 16:00)
PROC: 02HV33Z Insertion of Infusion Device into Superior Vena Cava, Percutaneous Approach (ICD-10-PCS; 2018-05-05 17:26)
DX: A41.9 Sepsis, unspecified organism (principal); N17.0 Acute kidney failure with tubular necrosis; L03.116 Cellulitis of left lower limb; M86.9 Osteomyelitis, unspecified; E11.52 Type 2 diabetes mellitus with diabetic peripheral angiopathy with gangrene; I96 Gangrene, not elsewhere classified; E11.621 Type 2 diabetes mellitus with foot ulcer; E11.69 Type 2 diabetes mellitus with other specified complication; I12.9 Hypertensive chronic kidney disease with stage 1 through stage 4 chronic kidney disease, or unspecified chronic kidney disease; E11.22 Type 2 diabetes mellitus with diabetic chronic kidney disease; N18.3 Chronic kidney disease, stage 3 (moderate); B96.5 Pseudomonas (aeruginosa) (mallei) (pseudomallei) as the cause of diseases classified elsewhere; B96.4 Proteus (mirabilis) (morganii) as the cause of diseases classified elsewhere; B95.2 Enterococcus as the cause of diseases classified elsewhere; Z16.12 Extended spectrum beta lactamase (ESBL) resistance
CPT/HCPCS: 36415; 36430; 36569; 71045; 73630-LT; 76775; 76937; 80048; 80053; 81001; 81003; 82043; 82550; 82570; 82728; 82962; 83540; 83735; 83930; 83935; 84100; 84300; 84436; 84443; 85014; 85018; 85025; 85651; 86850; 86900; 86901; 86920; 87040; 87070; 87075; 87081; 87102; 88305; 88307; 88311; 89190; 96374; 96375; 99285-25

== ENCOUNTER 2018-11-18 23:24 | Inpatient (IN) | payer MEDICARE, OTHER ==
[2018-11-18 23:49] LABS: ADD MAN DIFF? NO
[2018-11-18 23:52] LABS: ABNORMAL IP MESSAGE 1; BASOPHIL # 0.1 10^3/ul (0.0-0.1); BASOPHILS % 0.4 % (0.0-2.0); EOSINOPHILS # 0.2 10^3/ul (0.0-0.5); EOSINOPHILS % 0.9 % (0.0-7.0); HEMATOCRIT 26.6 % (42.0-52.0); HEMOGLOBIN 8.5 g/dl (14.0-18.0); LYMPHOCYTES # 2.2 10^3/ul (0.8-2.9); LYMPHOCYTES % 10.6 % (15.0-51.0); MEAN CORPUSCULAR HEMOGLOBIN 33.2 pg (29.0-33.0); MEAN CORPUSCULAR VOLUME 103.9 fl (82.0-101.0); MEAN PLATELET VOLUME 10.1 fl (7.4-10.4); MONOCYTE # 7.8 10^3/ul (0.3-0.9); MONOCYTES % 36.8 % (0.0-11.0); NEUTROPHIL # 10.5 10^3/ul (1.6-7.5); NEUTROPHILS % 49.7 % (39.0-77.0); PLATELET COUNT 339 10^3/UL (140-415); POSITIVE DIFF @See below; RED BLOOD COUNT 2.56 10^6/ul (4.70-6.10)
[2018-11-18 23:52] LABS: WHITE BLOOD COUNT 21.1 10^3/ul (4.8-10.8)
[2018-11-18 23:56] LABS: INR 1.11; PROTIME 14.4 Sec (11.9-14.9); PT RATIO 1.1
[2018-11-18 23:57] LABS: PARTIAL THROMBOPLASTIN TIME 41.5 Sec (23.0-35.0)
[2018-11-18 23:58] LABS: ANION GAP 14 (5-13); BLOOD UREA NITROGEN 69 mg/dl (7-20); CARBON DIOXIDE 23 mmol/L (21-31); CHLORIDE 98 mmol/L (97-110); Estimated GFR 8 mL/min (>60); GLUCOSE 185 mg/dl (70-220); POTASSIUM 4.7 mmol/L (3.5-5.1); SODIUM 135 mmol/L (135-144)
[2018-11-19 00:10] LABS: TROPONIN-I 0.018 ng/ml (0.000-0.120)
[2018-11-19] MEDS: PIPER-TAZO 2.25 GM (PMX) 50 ML IVPB ×3 (00:35→21:38)
[2018-11-19] MEDS: VANCOMYCIN 1 GM (PMX) 250 ML IVPB (00:59)
[2018-11-19 01:18] LABS: AADO2 Arterial 223.9 mmHg (7.0-24.0); Allen Test ACCEPTAB; Arterial Base Excess -4.1 mmol/L (-3.0-3); Arterial Blood Gas Oxygen Sat 95.5 mmHG (95.0-98.0); Arterial COHb 0.2 % (0.0-3.0); Arterial Fraction of Oxyhgb 94.9 % (93.0-99.0); Arterial HCO3 21.4 mmol/L (22.0-26.0); Arterial MetHb 0.4 % (0.0-1.5); Blood Gas IEPAP 15/5; Blood Gas PS 10; MODE MASK - BIPAP; Site Left Radial
[2018-11-19] MEDS: hydrALAzine 20 MG INJ IV (02:10)
[2018-11-19] MEDS: FUROSEMIDE 40 MG INJ IV (02:43)
[2018-11-19 02:51] LABS: LACTIC ACID 0.8 mmol/L (0.5-2.0)
[2018-11-19] MEDS ORDERED: ACETAMINOPHEN 650MG/20.3ML CUP PO (03:00)
[2018-11-19] MEDS ORDERED: ONDANSETRON 4 MG INJ IV (03:00)
[2018-11-19] MEDS ORDERED: NITROGLYCERIN (SL) 0.4 MG TAB SL (03:00)
[2018-11-19] MEDS ORDERED: morphine 2 MG INJ IV (03:00)
[2018-11-19 03:07] LABS: ALANINE AMINOTRANSFERASE 14 IU/L (13-69); ALBUMIN 3.8 g/dl (3.3-4.9); ALKALINE PHOSPHATASE 57 IU/L (42-121); ASPARTATE AMINO TRANSFERASE 22 IU/L (15-46); BILIRUBIN,INDIRECT 0.2 mg/dl (0-1.1); BILIRUBIN,TOTAL 0.2 mg/dl (0.2-1.3); TOTAL PROTEIN 8.3 g/dl (6.1-8.1)
[2018-11-19] MEDS: PANTOPRAZOLE 40 MG INJ IV (05:30)
[2018-11-19 05:31] LABS: ABNORMAL IP MESSAGE 1; BASOPHILS % 0.2 % (0.0-2.0); EOSINOPHILS # 0.1 10^3/ul (0.0-0.5); EOSINOPHILS % 0.6 % (0.0-7.0); HEMATOCRIT 24.4 % (42.0-52.0); HEMOGLOBIN 7.7 g/dl (14.0-18.0); LYMPHOCYTES # 1.3 10^3/ul (0.8-2.9); LYMPHOCYTES % 7.4 % (15.0-51.0); MEAN CORPUSCULAR HGB CONC 31.6 g/dl (32.0-37.0); MEAN CORPUSCULAR VOLUME 104.7 fl (82.0-101.0); MEAN PLATELET VOLUME 10.5 fl (7.4-10.4); MONOCYTE # 5.8 10^3/ul (0.3-0.9); MONOCYTES % 33.7 % (0.0-11.0); NEUTROPHIL # 9.5 10^3/ul (1.6-7.5); NEUTROPHILS % 55.4 % (39.0-77.0); PLATELET COUNT 277 10^3/UL (140-415); POSITIVE DIFF @See below; RED BLOOD COUNT 2.33 10^6/ul (4.70-6.10); RED CELL DISTRIBUTION WIDTH 16.2 % (11.5-14.5)
[2018-11-19 05:31] LABS: WHITE BLOOD COUNT 17.1 10^3/ul (4.8-10.8)
[2018-11-19 05:32] LABS: ADD MAN DIFF? NO
[2018-11-19 06:08] LABS: CREATINE KINASE 54 IU/L (23-200)
[2018-11-19 06:23] LABS: LACTIC ACID 0.9 mmol/L (0.5-2.0)
[2018-11-19 06:25] LABS: CK INDEX 4.3; CK-MB 2.31 ng/ml (0.0-2.4); TROPONIN-I 0.038 ng/ml (0.000-0.120)
[2018-11-19 06:50] LABS: HEMOGLOBIN A1C 5.4 % (0-5.9)
[2018-11-19 07:27] LABS: ERYTHROCYTE SEDIMENTATION RATE 135 mm/Hr (0-20)
[2018-11-19 07:31] LABS: ALANINE AMINOTRANSFERASE 12 IU/L (13-69); ALBUMIN 3.7 g/dl (3.3-4.9); ALBUMIN/GLOBULIN RATIO 0.82; ALKALINE PHOSPHATASE 52 IU/L (42-121); ANION GAP 14 (5-13); ASPARTATE AMINO TRANSFERASE 26 IU/L (15-46); BILIRUBIN,INDIRECT 0.2 mg/dl (0-1.1); BILIRUBIN,TOTAL 0.2 mg/dl (0.2-1.3); BLOOD UREA NITROGEN 69 mg/dl (7-20); CALCIUM 9.1 mg/dl (8.4-10.2); CARBON DIOXIDE 23 mmol/L (21-31); CHLORIDE 100 mmol/L (97-110); CREATININE 7.31 mg/dl (0.61-1.24); Estimated GFR 7 mL/min (>60); GLUCOSE 114 mg/dl (70-220); MAGNESIUM 1.9 mg/dl (1.7-2.5); SODIUM 137 mmol/L (135-144); TOTAL PROTEIN 8.2 g/dl (6.1-8.1)
[2018-11-19 07:54] LABS: C-REACTIVE PROTEIN 2.2 mg/dl (0.0-0.9)
[2018-11-19 08:25] LABS: IRON 30 ug/dl (35-150)
[2018-11-19] MEDS ORDERED: ALBUMIN HUMAN 25% 100 ML IV (08:30)
[2018-11-19] MEDS ORDERED: DEXTROSE 50% 50 ML SYRINGE IV (08:30)
[2018-11-19] MEDS ORDERED: GLUCOSE GEL 15 GRAM TUBE BUCCAL (08:30)
[2018-11-19] MEDS ORDERED: GLUCAGON 1 MG INJ IM (08:30)
[2018-11-19] MEDS ORDERED: GLUCOSE GEL 15 GRAM TUBE PO ×2 (08:30)
[2018-11-19 08:34] LABS: % IRON SATURATION 11 % SAT (22-52); TOTAL IRON BINDING CAPACITY 268 ug/dl (241-421)
[2018-11-19] MEDS ORDERED: VANCOMYCIN IV PER PHARMACY XX (09:30)
[2018-11-19 11:11] LABS: ADD UMIC YES; UR ASCORBIC ACID NEGATIVE (NEGATIVE); UR BACTERIA FEW /HPF (NONE SEEN); UR BILIRUBIN (Dip) NEGATIVE (NEGATIVE); UR BLOOD (Dip) NEGATIVE (NEGATIVE); UR CLARITY SLIGHTLY CLOUDY (CLEAR); UR COLOR YELLOW (YELLOW); UR GLUCOSE (Dip) NEGATIVE (NEGATIVE); UR KETONES (Dip) NEGATIVE (NEGATIVE); UR LEUKOCYTE ESTERASE (Dip) NEGATIVE Leu/ul (NEGATIVE); UR NITRITE (Dip) NEGATIVE (NEGATIVE); UR RBC 6 /HPF (0-5); UR SPECIFIC GRAVITY (Dip) 1.015 (1.003-1.030); UR TOTAL PROTEIN (Dip) 2+ mg/dl (NEGATIVE); UR UROBILINOGEN (Dip) NEGATIVE (NEGATIVE); UR WBC 2 /HPF (0-5)
[2018-11-19] MEDS: HEPARIN 1000 UNITS/ML 10 ML INJ CATHETER (11:42)
[2018-11-19] MEDS: ASPIRIN (EC) 81 MG TAB PO (11:45)
[2018-11-19] MEDS: AMLODIPINE 5 MG TAB PO (11:45)
[2018-11-19] MEDS: FERROUS SULFATE (EC) 325 MG TAB PO ×3 (11:45→20:50)
[2018-11-19] MEDS: VANCOMYCIN 1 GM 250 ML IVPB (11:46)
[2018-11-19 12:11] LABS: HEPATITIS B SURFACE ANTIGEN NEGATIVE (NEGATIVE)
[2018-11-19] MEDS: EPOETIN ALFA-EPBX (NON-ESRD 10,000 UNIT/ML VIAL SC (17:04)
[2018-11-19] MEDS ORDERED: INSULIN GLARGINE 22 UNIT SC (20:00)
[2018-11-19] MEDS: ATORVASTATIN 10 MG TAB PO (20:49)
[2018-11-19] MEDS: INSULIN GLARGINE [LANTus] (100 UNITS/ML) SYG SC (20:55)
[2018-11-20 05:10] LABS: ADD MAN DIFF? NO
[2018-11-20 05:19] LABS: ABNORMAL IP MESSAGE 1; BASOPHILS % 0.4 % (0.0-2.0); EOSINOPHILS # 0.1 10^3/ul (0.0-0.5); EOSINOPHILS % 0.9 % (0.0-7.0); HEMATOCRIT 23.3 % (42.0-52.0); HEMOGLOBIN 7.4 g/dl (14.0-18.0); LYMPHOCYTES # 1.2 10^3/ul (0.8-2.9); MEAN CORPUSCULAR HEMOGLOBIN 33.6 pg (29.0-33.0); MEAN CORPUSCULAR HGB CONC 31.8 g/dl (32.0-37.0); MEAN CORPUSCULAR VOLUME 105.9 fl (82.0-101.0); MEAN PLATELET VOLUME 10.1 fl (7.4-10.4); MONOCYTE # 5.2 10^3/ul (0.3-0.9); MONOCYTES % 50.8 % (0.0-11.0); NEUTROPHIL # 3.6 10^3/ul (1.6-7.5); NEUTROPHILS % 35.3 % (39.0-77.0); PLATELET COUNT 262 10^3/UL (140-415); POSITIVE DIFF @See below; RED CELL DISTRIBUTION WIDTH 16.3 % (11.5-14.5)
[2018-11-20 05:19] LABS: WHITE BLOOD COUNT 10.3 10^3/ul (4.8-10.8)
[2018-11-20 05:51] LABS: ALANINE AMINOTRANSFERASE 13 IU/L (13-69); ALBUMIN 3.4 g/dl (3.3-4.9); ALBUMIN/GLOBULIN RATIO 0.85; ALKALINE PHOSPHATASE 46 IU/L (42-121); ANION GAP 10 (5-13); ASPARTATE AMINO TRANSFERASE 20 IU/L (15-46); BILIRUBIN,INDIRECT 0.3 mg/dl (0-1.1); BILIRUBIN,TOTAL 0.3 mg/dl (0.2-1.3); BLOOD UREA NITROGEN 49 mg/dl (7-20); CALCIUM 8.8 mg/dl (8.4-10.2); CARBON DIOXIDE 27 mmol/L (21-31); CHLORIDE 103 mmol/L (97-110); CHOL/HDL RATIO 5.3 RATIO; CHOLESTEROL 123 mg/dl (100-200); CREATININE 5.66 mg/dl (0.61-1.24); Estimated GFR 10 mL/min (>60); GLUCOSE 53 mg/dl (70-220); HDL CHOLESTEROL 23 mg/dl (31-75); LDL CHOLESTEROL,CALCULATED 82 mg/dl; POTASSIUM 4.2 mmol/L (3.5-5.1); SODIUM 140 mmol/L (135-144); TOTAL PROTEIN 7.4 g/dl (6.1-8.1); TRIGLYCERIDES 91 mg/dl (0-149)
[2018-11-20] MEDS: PANTOPRAZOLE 40 MG INJ IV (06:07)
[2018-11-20 06:24] LABS: PROCALCITONIN 0.11 ng/mL (0.00-0.10)
[2018-11-20] MEDS: DEXTROSE 50% 50 ML SYRINGE IV (07:55)
[2018-11-20] MEDS: ASPIRIN (EC) 81 MG TAB PO (08:06)
[2018-11-20] MEDS: PIPER-TAZO 2.25 GM (PMX) 50 ML IVPB ×2 (08:07→20:58)
[2018-11-20] MEDS: AMLODIPINE 5 MG TAB PO (08:07)
[2018-11-20] MEDS: FERROUS SULFATE (EC) 325 MG TAB PO (08:07)
[2018-11-20 08:59] LABS: AADO2 Arterial 46.7 mmHg (7.0-24.0); Allen Test ACCEPTAB; Arterial Base Excess -0.9 mmol/L (-3.0-3); Arterial Blood Gas Oxygen Sat 85.4 mmHG (95.0-98.0); Arterial COHb 0.3 % (0.0-3.0); Arterial Fraction of Oxyhgb 84.8 % (93.0-99.0); Arterial HCO3 24.2 mmol/L (22.0-26.0); Arterial MetHb 0.4 % (0.0-1.5); MODE ROOM AIR; Site Left Radial
[2018-11-20 12:21] LABS: C-REACTIVE PROTEIN 3.5 mg/dl (0.0-0.9)
[2018-11-20 13:05] LABS: ERYTHROCYTE SEDIMENTATION RATE > 130 mm/Hr (0-20)
[2018-11-20] MEDS: HEPARIN 1000 UNITS/ML 10 ML INJ CATHETER (14:09)
[2018-11-20] MEDS: ATORVASTATIN 10 MG TAB PO (20:58)
[2018-11-20] MEDS: INSULIN GLARGINE [LANTus] (100 UNITS/ML) SYG SC (20:58)
[2018-11-21 06:07] LABS: ADD MAN DIFF? NO
[2018-11-21] MEDS: PANTOPRAZOLE 40 MG INJ IV (06:10)
[2018-11-21 06:23] LABS: WHITE BLOOD COUNT 9.4 10^3/ul (4.8-10.8)
[2018-11-21 06:23] LABS: ABNORMAL IP MESSAGE 1; BASOPHILS % 0.3 % (0.0-2.0); EOSINOPHILS # 0.1 10^3/ul (0.0-0.5); EOSINOPHILS % 0.7 % (0.0-7.0); HEMATOCRIT 21.6 % (42.0-52.0); LYMPHOCYTES # 1.3 10^3/ul (0.8-2.9); LYMPHOCYTES % 14.2 % (15.0-51.0); MEAN CORPUSCULAR HEMOGLOBIN 33.7 pg (29.0-33.0); MEAN CORPUSCULAR HGB CONC 31.9 g/dl (32.0-37.0); MEAN CORPUSCULAR VOLUME 105.4 fl (82.0-101.0); MEAN PLATELET VOLUME 10.6 fl (7.4-10.4); MONOCYTE # 4.6 10^3/ul (0.3-0.9); NEUTROPHIL # 3.3 10^3/ul (1.6-7.5); NEUTROPHILS % 35.3 % (39.0-77.0); PLATELET COUNT 242 10^3/UL (140-415); POSITIVE DIFF @See below; RED BLOOD COUNT 2.05 10^6/ul (4.70-6.10)
[2018-11-21 06:30] LABS: HEMOGLOBIN 6.9 g/dl (14.0-18.0)
[2018-11-21] MEDS: SOD CHLORIDE 0.9% 250 ML IV* (06:42)
[2018-11-21 06:49] LABS: ALANINE AMINOTRANSFERASE 15 IU/L (13-69); ALBUMIN 3.1 g/dl (3.3-4.9); ALBUMIN/GLOBULIN RATIO 0.79; ALKALINE PHOSPHATASE 42 IU/L (42-121); ANION GAP 10 (5-13); ASPARTATE AMINO TRANSFERASE 17 IU/L (15-46); BILIRUBIN,INDIRECT 0.2 mg/dl (0-1.1); BILIRUBIN,TOTAL 0.2 mg/dl (0.2-1.3); BLOOD UREA NITROGEN 38 mg/dl (7-20); CALCIUM 8.5 mg/dl (8.4-10.2); CARBON DIOXIDE 28 mmol/L (21-31); CHLORIDE 101 mmol/L (97-110); CREATININE 4.58 mg/dl (0.61-1.24); Estimated GFR 13 mL/min (>60); GLUCOSE 107 mg/dl (70-220); POTASSIUM 3.8 mmol/L (3.5-5.1); SODIUM 139 mmol/L (135-144)
[2018-11-21] MEDS: ASPIRIN (EC) 81 MG TAB PO (08:48)
[2018-11-21] MEDS: AMLODIPINE 5 MG TAB PO (08:49)
[2018-11-21] MEDS: PIPER-TAZO 2.25 GM (PMX) 50 ML IVPB ×2 (08:49→20:49)
[2018-11-21] MEDS: ALBUTEROL/IPRATROPIUM (NEB) 3 ML AMP NEB ×2 (12:57→23:24)
[2018-11-21] MEDS: HEPARIN 1000 UNITS/ML 10 ML INJ CATHETER (16:57)
[2018-11-21] MEDS: INSULIN GLARGINE [LANTus] (100 UNITS/ML) SYG SC (20:00)
[2018-11-21] MEDS: ATORVASTATIN 10 MG TAB PO (20:50)
[2018-11-21] MEDS: MUPIROCIN 2% 22 GM OINT TOP (20:52)
[2018-11-22 05:04] LABS: AADO2 Arterial 277.1 mmHg (7.0-24.0); Allen Test ACCEPTAB; Arterial Base Excess 2.3 mmol/L (-3.0-3); Arterial COHb 0.6 % (0.0-3.0); Arterial Fraction of Oxyhgb 97.1 % (93.0-99.0); Arterial HCO3 26.7 mmol/L (22.0-26.0); Arterial MetHb 0.3 % (0.0-1.5); Arterial pCO2 40.6 mmhg (35-45); Blood Gas IEPAP 15/5; Blood Gas PS 10; MODE MASK - BIPAP; Site Right Radial
[2018-11-22] MEDS: PANTOPRAZOLE 40 MG INJ IV (05:51)
[2018-11-22 06:21] LABS: ABNORMAL IP MESSAGE 1; HEMOGLOBIN 7.6 g/dl (14.0-18.0); MEAN CORPUSCULAR HEMOGLOBIN 33.3 pg (29.0-33.0); MEAN CORPUSCULAR HGB CONC 31.7 g/dl (32.0-37.0); MEAN CORPUSCULAR VOLUME 105.3 fl (82.0-101.0); MEAN PLATELET VOLUME 10.2 fl (7.4-10.4); PLATELET COUNT 277 10^3/UL (140-415); POSITIVE DIFF @See below; RED BLOOD COUNT 2.28 10^6/ul (4.70-6.10); RED CELL DISTRIBUTION WIDTH 15.9 % (11.5-14.5)
[2018-11-22 06:28] LABS: ADD MAN DIFF? YES
[2018-11-22 06:53] LABS: ALANINE AMINOTRANSFERASE 15 IU/L (13-69); ALBUMIN 3.3 g/dl (3.3-4.9); ALBUMIN/GLOBULIN RATIO 0.84; ALKALINE PHOSPHATASE 45 IU/L (42-121); ANION GAP 9 (5-13); ASPARTATE AMINO TRANSFERASE 19 IU/L (15-46); BILIRUBIN,INDIRECT 0.3 mg/dl (0-1.1); BILIRUBIN,TOTAL 0.3 mg/dl (0.2-1.3); BLOOD UREA NITROGEN 28 mg/dl (7-20); CALCIUM 8.6 mg/dl (8.4-10.2); CARBON DIOXIDE 28 mmol/L (21-31); CHLORIDE 104 mmol/L (97-110); CREATININE 3.99 mg/dl (0.61-1.24); Estimated GFR 15 mL/min (>60); GLUCOSE 98 mg/dl (70-220); POTASSIUM 3.8 mmol/L (3.5-5.1); SODIUM 141 mmol/L (135-144); TOTAL PROTEIN 7.2 g/dl (6.1-8.1)
[2018-11-22 07:40] LABS: ANISOCYTOSIS 1+ (0-0); BASOPHIL #M 0.1 10^3/ul (0.0-0.0); BASOPHILS % (M) 2 % (0-2); GIANT THROMBO% (M) 1 % (0-0); LYMPHOCYTES #M 1.4 10^3/ul (0.8-2.9); LYMPHOCYTES % (M) 16 % (15-51); MONOCYTE #M 3.6 10^3/ul (0.3-0.9); MONOCYTES % (M) 41 % (0-11); MYELOCYTES #M 0.1 10^3/ul (0.0-0.0); MYELOCYTES % (M) 2 % (0-0); PLATELET ESTIMATE NORMAL; PLATELET MORPHOLOGY COMMENT @See below; POLYCHROMASIA 1+ (0-0); REACTIVE LYMPHOCYTES% (M) 1 % (0-0); SEGMENTED NEUTROPHILS (M) % 38 % (39-77); SMUDGE%M 7 % (0-0)
[2018-11-22] MEDS: AMLODIPINE 5 MG TAB PO (08:17)
[2018-11-22] MEDS: ASPIRIN (EC) 81 MG TAB PO (08:17)
[2018-11-22] MEDS: RIFAMPIN 300 MG CAP PO (08:17)
[2018-11-22] MEDS: MUPIROCIN 2% 22 GM OINT TOP ×2 (08:18→20:02)
[2018-11-22] MEDS: HEPARIN 1000 UNITS/ML 10 ML INJ CATHETER (12:03)
[2018-11-22] MEDS: EPOETIN ALFA-EPBX (NON-ESRD 10,000 UNIT/ML VIAL SC (16:55)
[2018-11-22] MEDS: INSULIN GLARGINE [LANTus] (100 UNITS/ML) SYG SC (20:00)
[2018-11-22] MEDS: ATORVASTATIN 10 MG TAB PO (20:02)
[2018-11-23] MEDS: hydrALAzine 20 MG INJ IV (03:35)
[2018-11-23] MEDS: RIFAMPIN 300 MG CAP PO (08:47)
[2018-11-23] MEDS: AMLODIPINE 5 MG TAB PO (08:47)
[2018-11-23] MEDS: ASPIRIN (EC) 81 MG TAB PO (08:47)
[2018-11-23] MEDS: MUPIROCIN 2% 22 GM OINT TOP ×2 (08:49→20:51)
[2018-11-23] MEDS: FAMOTIDINE 20 MG INJ IV (08:49)
[2018-11-23] MEDS: HEPARIN 1000 UNITS/ML 10 ML INJ CATHETER (16:28)
[2018-11-23] MEDS: INSULIN GLARGINE [LANTus] (100 UNITS/ML) SYG SC (20:00)
[2018-11-23] MEDS: ATORVASTATIN 10 MG TAB PO (20:51)
[2018-11-24] MEDS: AMLODIPINE 5 MG TAB PO (07:57)
[2018-11-24] MEDS: ASPIRIN (EC) 81 MG TAB PO (09:26)
[2018-11-24] MEDS: FAMOTIDINE 20 MG INJ IV (09:26)
[2018-11-24] MEDS: RIFAMPIN 300 MG CAP PO (09:26)
[2018-11-24] MEDS: MUPIROCIN 2% 22 GM OINT TOP ×2 (09:27→21:00)
[2018-11-24] MEDS: INSULIN GLARGINE [LANTus] (100 UNITS/ML) SYG SC (22:00)
[2018-11-24] MEDS: HEPARIN 1000 UNITS/ML 10 ML INJ CATHETER (23:07)
[2018-11-24] MEDS: ATORVASTATIN 10 MG TAB PO (23:36)
[2018-11-24] MEDS: EPOETIN ALFA-EPBX (NON-ESRD 10,000 UNIT/ML VIAL SC (23:43)
[2018-11-25 06:52] LABS: WHITE BLOOD COUNT 12.6 10^3/ul (4.8-10.8)
[2018-11-25 06:52] LABS: ABNORMAL IP MESSAGE 1; HEMATOCRIT 28.4 % (42.0-52.0); HEMOGLOBIN 8.8 g/dl (14.0-18.0); MEAN CORPUSCULAR HEMOGLOBIN 32.5 pg (29.0-33.0); MEAN CORPUSCULAR VOLUME 104.8 fl (82.0-101.0); PLATELET COUNT 274 10^3/UL (140-415); POSITIVE DIFF @See below; RED BLOOD COUNT 2.71 10^6/ul (4.70-6.10); RED CELL DISTRIBUTION WIDTH 15.8 % (11.5-14.5)
[2018-11-25 06:56] LABS: ADD MAN DIFF? YES
[2018-11-25 07:08] LABS: PHOSPHORUS 3.4 mg/dl (2.5-4.9)
[2018-11-25 07:20] LABS: ANION GAP 8 (5-13); BLOOD UREA NITROGEN 13 mg/dl (7-20); CALCIUM 8.8 mg/dl (8.4-10.2); CARBON DIOXIDE 31 mmol/L (21-31); CHLORIDE 103 mmol/L (97-110); CREATININE 3.12 mg/dl (0.61-1.24); Estimated GFR 20 mL/min (>60); POTASSIUM 3.4 mmol/L (3.5-5.1); SODIUM 142 mmol/L (135-144)
[2018-11-25 07:32] LABS: GLUCOSE 48 mg/dl (70-220)
[2018-11-25 09:09] LABS: ANISOCYTOSIS 1+ (0-0); BAND NEUTROPHILS #M 0.3 10^3/ul (0.0-0.6); BAND NEUTROPHILS % (M) 3 % (0-4); BASOPHIL #M 1.5 10^3/ul (0.0-0.0); BASOPHILS % (M) 12 % (0-2); GIANT THROMBO% (M) 1 % (0-0); HYPOCHROMASIA 1+ (0-0); LYMPHOCYTES #M 4.1 10^3/ul (0.8-2.9); LYMPHOCYTES % (M) 33 % (15-51); MONOCYTE #M 0.7 10^3/ul (0.3-0.9); MONOCYTES % (M) 6 % (0-11); PLATELET ESTIMATE NORMAL; POLYCHROMASIA 3+ (0-0); SEG NEUT #M 5.8 10^3/ul (1.6-7.5); SEGMENTED NEUTROPHILS (M) % 46 % (39-77)
[2018-11-25] MEDS: HEPARIN 1000 UNITS/ML 10 ML INJ CATHETER (17:19)
[2018-11-25] MEDS: RIFAMPIN 300 MG CAP PO (18:04)
[2018-11-25] MEDS: ASPIRIN (EC) 81 MG TAB PO (18:04)
[2018-11-25] MEDS: FAMOTIDINE 20 MG TAB PO (18:04)
[2018-11-25] MEDS: AMLODIPINE 5 MG TAB PO (18:05)
[2018-11-25] MEDS: MUPIROCIN 2% 22 GM OINT TOP ×2 (18:06→21:00)
[2018-11-25] MEDS: ATORVASTATIN 10 MG TAB PO (21:42)
[2018-11-25] MEDS: INSULIN GLARGINE [LANTus] (100 UNITS/ML) SYG SC (23:00)
[2018-11-26] MEDS: ACCU-CHEK XX (02:00)
[2018-11-26] MEDS: hydrALAzine 20 MG INJ IV (02:48)
[2018-11-26 05:35] LABS: ADD MAN DIFF? NO
[2018-11-26 05:40] LABS: WHITE BLOOD COUNT 15.1 10^3/ul (4.8-10.8)
[2018-11-26 05:40] LABS: ABNORMAL IP MESSAGE 1; BASOPHIL # 0.1 10^3/ul (0.0-0.1); BASOPHILS % 0.5 % (0.0-2.0); EOSINOPHILS # 0.2 10^3/ul (0.0-0.5); EOSINOPHILS % 1.3 % (0.0-7.0); HEMATOCRIT 28.9 % (42.0-52.0); LYMPHOCYTES # 1.9 10^3/ul (0.8-2.9); LYMPHOCYTES % 12.8 % (15.0-51.0); MEAN CORPUSCULAR HEMOGLOBIN 33.1 pg (29.0-33.0); MEAN CORPUSCULAR HGB CONC 31.1 g/dl (32.0-37.0); MEAN CORPUSCULAR VOLUME 106.3 fl (82.0-101.0); MEAN PLATELET VOLUME 10.2 fl (7.4-10.4); MONOCYTE # 6.6 10^3/ul (0.3-0.9); MONOCYTES % 43.9 % (0.0-11.0); NEUTROPHILS % 39.8 % (39.0-77.0); PLATELET COUNT 280 10^3/UL (140-415); POSITIVE DIFF @See below; RED BLOOD COUNT 2.72 10^6/ul (4.70-6.10); RED CELL DISTRIBUTION WIDTH 15.6 % (11.5-14.5)
[2018-11-26 06:03] LABS: PHOSPHORUS 2.9 mg/dl (2.5-4.9)
[2018-11-26 06:05] LABS: ANION GAP 8 (5-13); BLOOD UREA NITROGEN 13 mg/dl (7-20); CALCIUM 8.7 mg/dl (8.4-10.2); CARBON DIOXIDE 31 mmol/L (21-31); CHLORIDE 101 mmol/L (97-110); CREATININE 3.22 mg/dl (0.61-1.24); Estimated GFR 19 mL/min (>60); GLUCOSE 95 mg/dl (70-220); POTASSIUM 3.9 mmol/L (3.5-5.1); SODIUM 140 mmol/L (135-144)
[2018-11-26] MEDS: INSULIN ASPART [NOVOLOG] 3 ML PEN SC ×4 (08:00→21:00)
[2018-11-26] MEDS: ASPIRIN (EC) 81 MG TAB PO (08:59)
[2018-11-26] MEDS: FAMOTIDINE 20 MG TAB PO (08:59)
[2018-11-26] MEDS: RIFAMPIN 300 MG CAP PO (08:59)
[2018-11-26] MEDS: MUPIROCIN 2% 22 GM OINT TOP ×2 (09:00→21:00)
[2018-11-26] MEDS: AMLODIPINE 5 MG TAB PO (10:21)
[2018-11-26] MEDS: NIFEdipine (XL) 60 MG TAB PO (16:53)
[2018-11-26] MEDS: EPOETIN ALFA-EPBX (NON-ESRD 10,000 UNIT/ML VIAL SC (18:12)
[2018-11-26] MEDS: INSULIN GLARGINE [LANTus] (100 UNITS/ML) SYG SC (20:00)
[2018-11-26] MEDS: HEPARIN 1000 UNITS/ML 10 ML INJ CATHETER (20:49)
[2018-11-26] MEDS: ATORVASTATIN 10 MG TAB PO (22:13)
[2018-11-27] MEDS: ACCU-CHEK XX (02:00)
[2018-11-27] MEDS: INSULIN ASPART [NOVOLOG] 3 ML PEN SC ×4 (08:00→22:22)
[2018-11-27] MEDS: ASPIRIN (EC) 81 MG TAB PO (08:59)
[2018-11-27] MEDS: MUPIROCIN 2% 22 GM OINT TOP ×2 (09:00→20:52)
[2018-11-27] MEDS: RIFAMPIN 300 MG CAP PO (09:00)
[2018-11-27] MEDS: FAMOTIDINE 20 MG TAB PO ×2 (09:00→20:48)
[2018-11-27] MEDS: AMLODIPINE 10 MG TAB PO (09:00)
[2018-11-27] MEDS: CLONIDINE 0.2 MG/24 HR PATCH TRANSDERM (11:00)
[2018-11-27 11:58] LABS: ADD MAN DIFF? NO
[2018-11-27 11:59] LABS: ABNORMAL IP MESSAGE 1; BASOPHIL # 0.1 10^3/ul (0.0-0.1); BASOPHILS % 0.5 % (0.0-2.0); EOSINOPHILS # 0.2 10^3/ul (0.0-0.5); EOSINOPHILS % 1.3 % (0.0-7.0); HEMOGLOBIN 10.1 g/dl (14.0-18.0); LYMPHOCYTES # 1.8 10^3/ul (0.8-2.9); LYMPHOCYTES % 13.4 % (15.0-51.0); MEAN CORPUSCULAR HEMOGLOBIN 32.8 pg (29.0-33.0); MEAN CORPUSCULAR HGB CONC 31.6 g/dl (32.0-37.0); MEAN CORPUSCULAR VOLUME 103.9 fl (82.0-101.0); MEAN PLATELET VOLUME 9.7 fl (7.4-10.4); MONOCYTE # 4.6 10^3/ul (0.3-0.9); MONOCYTES % 34.8 % (0.0-11.0); NEUTROPHIL # 6.3 10^3/ul (1.6-7.5); NEUTROPHILS % 47.9 % (39.0-77.0); PLATELET COUNT 285 10^3/UL (140-415); POSITIVE DIFF @See below; RED BLOOD COUNT 3.08 10^6/ul (4.70-6.10); RED CELL DISTRIBUTION WIDTH 15.8 % (11.5-14.5)
[2018-11-27 11:59] LABS: WHITE BLOOD COUNT 13.2 10^3/ul (4.8-10.8)
[2018-11-27 12:22] LABS: INR 1.21; PROTIME 15.4 Sec (11.9-14.9); PT RATIO 1.2
[2018-11-27 12:41] LABS: HEMOGLOBIN A1C 4.8 % (0-5.9)
[2018-11-27 12:48] LABS: ALANINE AMINOTRANSFERASE 14 IU/L (13-69); ALBUMIN 3.8 g/dl (3.3-4.9); ALBUMIN/GLOBULIN RATIO 0.82; ALKALINE PHOSPHATASE 76 IU/L (42-121); ANION GAP 9 (5-13); ASPARTATE AMINO TRANSFERASE 22 IU/L (15-46); BILIRUBIN,INDIRECT 0.3 mg/dl (0-1.1); BILIRUBIN,TOTAL 0.3 mg/dl (0.2-1.3); BLOOD UREA NITROGEN 14 mg/dl (7-20); CALCIUM 8.9 mg/dl (8.4-10.2); CARBON DIOXIDE 31 mmol/L (21-31); CHLORIDE 101 mmol/L (97-110); CREATININE 3.55 mg/dl (0.61-1.24); Estimated GFR 17 mL/min (>60); GLUCOSE 79 mg/dl (70-220); POTASSIUM 4.1 mmol/L (3.5-5.1); SODIUM 141 mmol/L (135-144); TOTAL PROTEIN 8.4 g/dl (6.1-8.1)
[2018-11-27] MEDS: HEPARIN 1000 UNITS/ML 10 ML INJ CATHETER (16:54)
[2018-11-27 18:00] LABS: PROCALCITONIN 0.12 ng/mL (0.00-0.10)
[2018-11-27] MEDS: ATORVASTATIN 10 MG TAB PO (20:48)
[2018-11-27] MEDS: LACTOBACILLUS RHAMNOSUS CAP PO (20:49)
[2018-11-28] MEDS: ACCU-CHEK XX (01:43)
[2018-11-28] MEDS: INSULIN ASPART [NOVOLOG] 3 ML PEN SC ×4 (08:00→20:43)
[2018-11-28] MEDS: LACTOBACILLUS RHAMNOSUS CAP PO ×2 (09:33→20:41)
[2018-11-28] MEDS: ASPIRIN (EC) 81 MG TAB PO (09:33)
[2018-11-28] MEDS: RIFAMPIN 300 MG CAP PO (09:34)
[2018-11-28] MEDS: AMLODIPINE 10 MG TAB PO (09:34)
[2018-11-28] MEDS: MUPIROCIN 2% 22 GM OINT TOP ×2 (09:34→20:46)
[2018-11-28] MEDS: DAKINS 0.0125%(1/40) 473 ML SOLUTION TP ×2 (15:23→20:47)
[2018-11-28] MEDS: FAMOTIDINE 20 MG TAB PO (20:41)
[2018-11-28] MEDS: ATORVASTATIN 10 MG TAB PO (20:41)
[2018-11-29] MEDS: ACCU-CHEK XX (02:00)
[2018-11-29 06:07] LABS: ADD MAN DIFF? NO
[2018-11-29 06:22] LABS: WHITE BLOOD COUNT 16.9 10^3/ul (4.8-10.8)
[2018-11-29 06:22] LABS: ABNORMAL IP MESSAGE 1; BASOPHIL # 0.1 10^3/ul (0.0-0.1); BASOPHILS % 0.5 % (0.0-2.0); EOSINOPHILS # 0.2 10^3/ul (0.0-0.5); EOSINOPHILS % 1.1 % (0.0-7.0); HEMATOCRIT 31.5 % (42.0-52.0); LYMPHOCYTES # 2.4 10^3/ul (0.8-2.9); LYMPHOCYTES % 13.9 % (15.0-51.0); MEAN CORPUSCULAR HEMOGLOBIN 33.2 pg (29.0-33.0); MEAN CORPUSCULAR HGB CONC 31.7 g/dl (32.0-37.0); MEAN CORPUSCULAR VOLUME 104.7 fl (82.0-101.0); MEAN PLATELET VOLUME 9.9 fl (7.4-10.4); MONOCYTE # 8.2 10^3/ul (0.3-0.9); MONOCYTES % 48.2 % (0.0-11.0); NEUTROPHILS % 35.1 % (39.0-77.0); PLATELET COUNT 283 10^3/UL (140-415); POSITIVE DIFF @See below; RED BLOOD COUNT 3.01 10^6/ul (4.70-6.10); RED CELL DISTRIBUTION WIDTH 15.9 % (11.5-14.5)
[2018-11-29 06:40] LABS: INR 1.17; PT RATIO 1.2
[2018-11-29 06:53] LABS: ANION GAP 11 (5-13); BLOOD UREA NITROGEN 31 mg/dl (7-20); CALCIUM 8.6 mg/dl (8.4-10.2); CARBON DIOXIDE 28 mmol/L (21-31); CHLORIDE 100 mmol/L (97-110); CREATININE 5.36 mg/dl (0.61-1.24); Estimated GFR 11 mL/min (>60); GLUCOSE 95 mg/dl (70-220); POTASSIUM 3.5 mmol/L (3.5-5.1); SODIUM 139 mmol/L (135-144)
[2018-11-29] MEDS: AMLODIPINE 10 MG TAB PO (09:00)
[2018-11-29] MEDS: INSULIN ASPART [NOVOLOG] 3 ML PEN SC ×4 (09:03→20:58)
[2018-11-29] MEDS: ASPIRIN (EC) 81 MG TAB PO (09:06)
[2018-11-29] MEDS: DAKINS 0.0125%(1/40) 473 ML SOLUTION TP ×2 (09:06→21:05)
[2018-11-29] MEDS: MUPIROCIN 2% 22 GM OINT TOP ×2 (09:06→20:59)
[2018-11-29] MEDS: LACTOBACILLUS RHAMNOSUS CAP PO ×2 (09:06→20:57)
[2018-11-29] MEDS: ALTEPLASE (CATHFLO) 2 MG INJ CATHETER (10:54)
[2018-11-29] MEDS: EPOETIN ALFA-EPBX (NON-ESRD 10,000 UNIT/ML VIAL SC (17:42)
[2018-11-29] MEDS: FAMOTIDINE 20 MG TAB PO (20:56)
[2018-11-29] MEDS: ATORVASTATIN 10 MG TAB PO (20:57)
[2018-11-30] MEDS: ACCU-CHEK XX (02:00)
[2018-11-30 06:00] LABS: ADD MAN DIFF? NO
[2018-11-30 06:09] LABS: ABNORMAL IP MESSAGE 1; BASOPHIL # 0.1 10^3/ul (0.0-0.1); BASOPHILS % 0.5 % (0.0-2.0); EOSINOPHILS # 0.2 10^3/ul (0.0-0.5); EOSINOPHILS % 1.3 % (0.0-7.0); HEMATOCRIT 31.6 % (42.0-52.0); HEMOGLOBIN 10.1 g/dl (14.0-18.0); LYMPHOCYTES # 2.3 10^3/ul (0.8-2.9); LYMPHOCYTES % 14.9 % (15.0-51.0); MEAN CORPUSCULAR HEMOGLOBIN 33.4 pg (29.0-33.0); MEAN CORPUSCULAR VOLUME 104.6 fl (82.0-101.0); MEAN PLATELET VOLUME 10.5 fl (7.4-10.4); MONOCYTE # 6.1 10^3/ul (0.3-0.9); NEUTROPHIL # 6.4 10^3/ul (1.6-7.5); PLATELET COUNT 280 10^3/UL (140-415); POSITIVE DIFF @See below; RED BLOOD COUNT 3.02 10^6/ul (4.70-6.10); RED CELL DISTRIBUTION WIDTH 15.6 % (11.5-14.5)
[2018-11-30 06:09] LABS: WHITE BLOOD COUNT 15.2 10^3/ul (4.8-10.8)
[2018-11-30 06:33] LABS: ANION GAP 11 (5-13); BLOOD UREA NITROGEN 28 mg/dl (7-20); CALCIUM 8.8 mg/dl (8.4-10.2); CARBON DIOXIDE 29 mmol/L (21-31); CHLORIDE 97 mmol/L (97-110); CREATININE 5.28 mg/dl (0.61-1.24); Estimated GFR 11 mL/min (>60); GLUCOSE 91 mg/dl (70-220); POTASSIUM 3.5 mmol/L (3.5-5.1); SODIUM 137 mmol/L (135-144)
[2018-11-30 06:44] LABS: MAGNESIUM 2.1 mg/dl (1.7-2.5)
[2018-11-30 06:44] LABS: PHOSPHORUS 4.4 mg/dl (2.5-4.9)
[2018-11-30] MEDS: INSULIN ASPART [NOVOLOG] 3 ML PEN SC ×4 (08:00→22:39)
[2018-11-30] MEDS: hydrALAzine 20 MG INJ IV (08:59)
[2018-11-30] MEDS: AMLODIPINE 10 MG TAB PO ×2 (09:00→15:55)
[2018-11-30] MEDS: ASPIRIN (EC) 81 MG TAB PO (09:00)
[2018-11-30] MEDS: LACTOBACILLUS RHAMNOSUS CAP PO ×2 (09:00→22:34)
[2018-11-30] MEDS: MUPIROCIN 2% 22 GM OINT TOP ×2 (09:03→22:36)
[2018-11-30] MEDS: DAKINS 0.0125%(1/40) 473 ML SOLUTION TP ×2 (09:05→22:37)
[2018-11-30] MEDS: FENTAnyl 50 MCG/ML VIAL (13:15)
[2018-11-30] MEDS: MIDAZOLAM 1 MG/ML 2 ML INJ (13:22)
[2018-11-30] MEDS ORDERED: LABETALOL HCL 20MG INJ IV (14:30)
[2018-11-30] MEDS ORDERED: FENTAnyl 50 MCG/ML VIAL IV ×2 (14:30)
[2018-11-30] MEDS ORDERED: hydrALAzine 20 MG INJ IV (14:30)
[2018-11-30] MEDS: HEPARIN 1000 UNITS/ML 10 ML INJ CATHETER (22:27)
[2018-11-30] MEDS: FAMOTIDINE 20 MG TAB PO (22:33)
[2018-11-30] MEDS: ATORVASTATIN 10 MG TAB PO (22:35)
[2018-12-01] MEDS: ACCU-CHEK XX (01:55)
[2018-12-01] MEDS: hydrALAzine 20 MG INJ IV (06:50)
[2018-12-01 07:11] LABS: ADD MAN DIFF? NO
[2018-12-01 07:16] LABS: ABNORMAL IP MESSAGE 1; BASOPHIL # 0.1 10^3/ul (0.0-0.1); BASOPHILS % 0.7 % (0.0-2.0); EOSINOPHILS # 0.1 10^3/ul (0.0-0.5); EOSINOPHILS % 0.8 % (0.0-7.0); HEMATOCRIT 32.4 % (42.0-52.0); HEMOGLOBIN 10.3 g/dl (14.0-18.0); LYMPHOCYTES # 1.6 10^3/ul (0.8-2.9); LYMPHOCYTES % 10.9 % (15.0-51.0); MEAN CORPUSCULAR HEMOGLOBIN 33.1 pg (29.0-33.0); MEAN CORPUSCULAR HGB CONC 31.8 g/dl (32.0-37.0); MEAN CORPUSCULAR VOLUME 104.2 fl (82.0-101.0); MEAN PLATELET VOLUME 10.2 fl (7.4-10.4); MONOCYTE # 6.5 10^3/ul (0.3-0.9); NEUTROPHIL # 6.3 10^3/ul (1.6-7.5); NEUTROPHILS % 42.3 % (39.0-77.0); PLATELET COUNT 265 10^3/UL (140-415); POSITIVE DIFF @See below; RED BLOOD COUNT 3.11 10^6/ul (4.70-6.10); RED CELL DISTRIBUTION WIDTH 15.7 % (11.5-14.5)
[2018-12-01 07:16] LABS: WHITE BLOOD COUNT 14.9 10^3/ul (4.8-10.8)
[2018-12-01 07:31] LABS: ANION GAP 11 (5-13); BLOOD UREA NITROGEN 20 mg/dl (7-20); CALCIUM 9.1 mg/dl (8.4-10.2); CARBON DIOXIDE 27 mmol/L (21-31); CHLORIDE 99 mmol/L (97-110); CREATININE 4.18 mg/dl (0.61-1.24); Estimated GFR 14 mL/min (>60); GLUCOSE 90 mg/dl (70-220); POTASSIUM 3.7 mmol/L (3.5-5.1); SODIUM 137 mmol/L (135-144)
[2018-12-01] MEDS ORDERED: MIDAZOLAM 1 MG/ML 2 ML INJ (07:40)
[2018-12-01] MEDS ORDERED: FENTAnyl 50 MCG/ML VIAL (07:41)
[2018-12-01 07:51] LABS: PHOSPHORUS 3.7 mg/dl (2.5-4.9)
[2018-12-01] MEDS: INSULIN ASPART [NOVOLOG] 3 ML PEN SC ×4 (08:00→20:51)
[2018-12-01] MEDS ORDERED: LIDOCAINE 1% (MPF) 30 ML INJ (08:01)
[2018-12-01] MEDS: LIDOCAINE 1% (MPF) 30 ML INJ INJ (08:05)
[2018-12-01] MEDS ORDERED: EPHEDrine 25 MG/5 ML SYG IV (09:00)
[2018-12-01] MEDS: MUPIROCIN 2% 22 GM OINT TOP ×2 (09:00→20:52)
[2018-12-01] MEDS: DAKINS 0.0125%(1/40) 473 ML SOLUTION TP ×2 (09:00→20:52)
[2018-12-01] MEDS: AMLODIPINE 10 MG TAB PO (09:00)
[2018-12-01] MEDS ORDERED: FENTAnyl 50 MCG/ML VIAL IV (09:00)
[2018-12-01] MEDS ORDERED: hydrALAzine 20 MG INJ IV (09:00)
[2018-12-01] MEDS ORDERED: LABETALOL HCL 20MG INJ IV (09:00)
[2018-12-01] MEDS: ASPIRIN (EC) 81 MG TAB PO (09:35)
[2018-12-01] MEDS: LACTOBACILLUS RHAMNOSUS CAP PO ×2 (09:35→20:50)
[2018-12-01] MEDS: SOD CHLORIDE 0.9% 1,000 ML IV (09:35)
[2018-12-01] MEDS: EPOETIN ALFA-EPBX (NON-ESRD 10,000 UNIT/ML VIAL SC (17:14)
[2018-12-01] MEDS: HEPARIN 1000 UNITS/ML 10 ML INJ CATHETER (17:18)
[2018-12-01] MEDS: FAMOTIDINE 20 MG TAB PO (20:50)
[2018-12-01] MEDS: ATORVASTATIN 10 MG TAB PO (20:50)
[2018-12-02] MEDS: ACCU-CHEK XX (02:00)
[2018-12-02 06:02] LABS: ADD MAN DIFF? NO
[2018-12-02 06:07] LABS: WHITE BLOOD COUNT 15.8 10^3/ul (4.8-10.8)
[2018-12-02 06:07] LABS: ABNORMAL IP MESSAGE 1; BASOPHIL # 0.1 10^3/ul (0.0-0.1); BASOPHILS % 0.6 % (0.0-2.0); EOSINOPHILS # 0.1 10^3/ul (0.0-0.5); EOSINOPHILS % 0.9 % (0.0-7.0); HEMATOCRIT 34.6 % (42.0-52.0); HEMOGLOBIN 10.9 g/dl (14.0-18.0); LYMPHOCYTES % 12.3 % (15.0-51.0); MEAN CORPUSCULAR HEMOGLOBIN 33.2 pg (29.0-33.0); MEAN CORPUSCULAR HGB CONC 31.5 g/dl (32.0-37.0); MEAN CORPUSCULAR VOLUME 105.5 fl (82.0-101.0); MEAN PLATELET VOLUME 10.1 fl (7.4-10.4); MONOCYTE # 7.5 10^3/ul (0.3-0.9); MONOCYTES % 47.5 % (0.0-11.0); NEUTROPHIL # 5.9 10^3/ul (1.6-7.5); PLATELET COUNT 255 10^3/UL (140-415); POSITIVE DIFF @See below; RED BLOOD COUNT 3.28 10^6/ul (4.70-6.10); RED CELL DISTRIBUTION WIDTH 15.6 % (11.5-14.5)
[2018-12-02 06:15] LABS: ANION GAP 8 (5-13); BLOOD UREA NITROGEN 19 mg/dl (7-20); CALCIUM 8.9 mg/dl (8.4-10.2); CARBON DIOXIDE 28 mmol/L (21-31); CHLORIDE 104 mmol/L (97-110); CREATININE 4.19 mg/dl (0.61-1.24); Estimated GFR 14 mL/min (>60); GLUCOSE 110 mg/dl (70-220); POTASSIUM 4.4 mmol/L (3.5-5.1); SODIUM 140 mmol/L (135-144)
[2018-12-02 06:28] LABS: MAGNESIUM 2.1 mg/dl (1.7-2.5)
[2018-12-02 06:28] LABS: PHOSPHORUS 3.8 mg/dl (2.5-4.9)
[2018-12-02] MEDS: SOD CHLORIDE 0.9% 1,000 ML IV (07:30)
[2018-12-02] MEDS: INSULIN ASPART [NOVOLOG] 3 ML PEN SC ×4 (08:00→21:00)
[2018-12-02] MEDS: MUPIROCIN 2% 22 GM OINT TOP ×2 (08:18→21:00)
[2018-12-02] MEDS: DAKINS 0.0125%(1/40) 473 ML SOLUTION TP ×2 (08:18→21:00)
[2018-12-02] MEDS ORDERED: VANCOMYCIN IV PER PHARMACY XX (08:30)
[2018-12-02] MEDS: LACTOBACILLUS RHAMNOSUS CAP PO ×2 (09:34→21:02)
[2018-12-02] MEDS: AMLODIPINE 10 MG TAB PO (09:34)
[2018-12-02] MEDS: ASPIRIN (EC) 81 MG TAB PO (09:34)
[2018-12-02] MEDS: VANCOMYCIN HCL 2 GM in SOD CHLORIDE 0.9% 500 ML IVPB (12:53)
[2018-12-02] MEDS: PIPER-TAZO 2.25 GM (PMX) 50 ML IVPB ×2 (15:33→21:10)
[2018-12-02] MEDS: ATORVASTATIN 10 MG TAB PO (21:02)
[2018-12-02] MEDS: FAMOTIDINE 20 MG TAB PO (21:02)
[2018-12-02] MEDS: HEPARIN 5,000 UNIT/1 ML VIAL SC (21:08)
[2018-12-03] MEDS: ACCU-CHEK XX (02:00)
[2018-12-03] MEDS: hydrALAzine 20 MG INJ IV (02:01)
[2018-12-03] MEDS: PIPER-TAZO 2.25 GM (PMX) 50 ML IVPB ×3 (05:36→22:30)
[2018-12-03 06:01] LABS: ADD MAN DIFF? NO
[2018-12-03 06:06] LABS: ABNORMAL IP MESSAGE 1; BASOPHIL # 0.1 10^3/ul (0.0-0.1); BASOPHILS % 0.6 % (0.0-2.0); EOSINOPHILS # 0.2 10^3/ul (0.0-0.5); HEMATOCRIT 31.9 % (42.0-52.0); HEMOGLOBIN 10.3 g/dl (14.0-18.0); LYMPHOCYTES # 1.2 10^3/ul (0.8-2.9); LYMPHOCYTES % 7.5 % (15.0-51.0); MEAN CORPUSCULAR HEMOGLOBIN 33.6 pg (29.0-33.0); MEAN CORPUSCULAR HGB CONC 32.3 g/dl (32.0-37.0); MEAN CORPUSCULAR VOLUME 103.9 fl (82.0-101.0); MEAN PLATELET VOLUME 9.9 fl (7.4-10.4); MONOCYTE # 8.8 10^3/ul (0.3-0.9); MONOCYTES % 54.8 % (0.0-11.0); NEUTROPHIL # 5.6 10^3/ul (1.6-7.5); NEUTROPHILS % 34.7 % (39.0-77.0); PLATELET COUNT 220 10^3/UL (140-415); POSITIVE DIFF @See below; RED BLOOD COUNT 3.07 10^6/ul (4.70-6.10); RED CELL DISTRIBUTION WIDTH 15.2 % (11.5-14.5)
[2018-12-03 06:37] LABS: PHOSPHORUS 4.4 mg/dl (2.5-4.9)
[2018-12-03 06:44] LABS: ANION GAP 13 (5-13); BLOOD UREA NITROGEN 31 mg/dl (7-20); CALCIUM 8.8 mg/dl (8.4-10.2); CARBON DIOXIDE 22 mmol/L (21-31); CHLORIDE 104 mmol/L (97-110); CREATININE 5.55 mg/dl (0.61-1.24); Estimated GFR 10 mL/min (>60); GLUCOSE 95 mg/dl (70-220); POTASSIUM 4.3 mmol/L (3.5-5.1); SODIUM 139 mmol/L (135-144)
[2018-12-03] MEDS: SOD CHLORIDE 0.9% 1,000 ML IV (07:30)
[2018-12-03 07:40] LABS: ERYTHROCYTE SEDIMENTATION RATE 63 mm/Hr (0-20)
[2018-12-03] MEDS: INSULIN ASPART [NOVOLOG] 3 ML PEN SC ×4 (08:00→20:48)
[2018-12-03] MEDS: ASPIRIN (EC) 81 MG TAB PO (08:17)
[2018-12-03] MEDS: LACTOBACILLUS RHAMNOSUS CAP PO (08:17)
[2018-12-03] MEDS: HEPARIN 5,000 UNIT/1 ML VIAL SC ×2 (08:18→20:56)
[2018-12-03] MEDS: AMLODIPINE 10 MG TAB PO (08:22)
[2018-12-03] MEDS: DAKINS 0.0125%(1/40) 473 ML SOLUTION TP (08:22)
[2018-12-03] MEDS: MUPIROCIN 2% 22 GM OINT TOP ×2 (08:22→20:48)
[2018-12-03] MEDS: HEPARIN 1000 UNITS/ML 10 ML INJ CATHETER (16:05)
[2018-12-03] MEDS: EPOETIN ALFA-EPBX (NON-ESRD 10,000 UNIT/ML VIAL SC (18:52)
[2018-12-03] MEDS: FAMOTIDINE 20 MG TAB PO (20:49)
[2018-12-03] MEDS: ATORVASTATIN 10 MG TAB PO (20:49)
[2018-12-04] MEDS: SOD CHLORIDE 0.9% 1,000 ML IV (00:30)
[2018-12-04] MEDS: ACCU-CHEK XX (01:43)
[2018-12-04] MEDS: PIPER-TAZO 2.25 GM (PMX) 50 ML IVPB (05:40)
[2018-12-04 05:56] LABS: ADD MAN DIFF? NO
[2018-12-04 06:01] LABS: ABNORMAL IP MESSAGE 1; BASOPHIL # 0.1 10^3/ul (0.0-0.1); EOSINOPHILS # 0.1 10^3/ul (0.0-0.5); EOSINOPHILS % 1.3 % (0.0-7.0); HEMATOCRIT 33.1 % (42.0-52.0); HEMOGLOBIN 10.6 g/dl (14.0-18.0); LYMPHOCYTES # 1.5 10^3/ul (0.8-2.9); LYMPHOCYTES % 14.6 % (15.0-51.0); MEAN CORPUSCULAR HEMOGLOBIN 32.9 pg (29.0-33.0); MEAN CORPUSCULAR VOLUME 102.8 fl (82.0-101.0); MEAN PLATELET VOLUME 10.5 fl (7.4-10.4); MONOCYTE # 5.5 10^3/ul (0.3-0.9); MONOCYTES % 53.6 % (0.0-11.0); NEUTROPHIL # 2.9 10^3/ul (1.6-7.5); NEUTROPHILS % 28.1 % (39.0-77.0); PLATELET COUNT 232 10^3/UL (140-415); POSITIVE DIFF @See below; RED BLOOD COUNT 3.22 10^6/ul (4.70-6.10)
[2018-12-04 06:01] LABS: WHITE BLOOD COUNT 10.3 10^3/ul (4.8-10.8)
[2018-12-04 06:43] LABS: VANCOMYCIN,RANDOM 21.2 ug/ml
[2018-12-04 06:45] LABS: ANION GAP 11 (5-13); BLOOD UREA NITROGEN 21 mg/dl (7-20); CALCIUM 8.8 mg/dl (8.4-10.2); CARBON DIOXIDE 27 mmol/L (21-31); CHLORIDE 102 mmol/L (97-110); CREATININE 4.58 mg/dl (0.61-1.24); Estimated GFR 13 mL/min (>60); GLUCOSE 82 mg/dl (70-220); POTASSIUM 4.3 mmol/L (3.5-5.1); SODIUM 140 mmol/L (135-144)
[2018-12-04 07:05] LABS: PHOSPHORUS 4.5 mg/dl (2.5-4.9)
[2018-12-04] MEDS: INSULIN ASPART [NOVOLOG] 3 ML PEN SC ×3 (08:00→17:35)
[2018-12-04] MEDS: ASPIRIN (EC) 81 MG TAB PO (08:37)
[2018-12-04] MEDS: DOXYCYCLINE 100 MG TAB PO (08:37)
[2018-12-04] MEDS: MULTIVIT/CA CARB/B CMPLX/FA TAB PO (08:37)
[2018-12-04] MEDS: AMLODIPINE 10 MG TAB PO (08:38)
[2018-12-04] MEDS: MUPIROCIN 2% 22 GM OINT TOP (08:38)
[2018-12-04] MEDS: HEPARIN 5,000 UNIT/1 ML VIAL SC (08:44)
[2018-12-04] MEDS: HEPARIN 1000 UNITS/ML 10 ML INJ CATHETER (13:23)
[2018-12-04] MEDS: CLONIDINE 0.2 MG/24 HR PATCH TRANSDERM (14:40)
== END 2018-12-04 21:00 | DRG 463 ==
LOC: 6WM 11-20 05:55 → E/R 23:24 → 6WM 11-20 08:49 → 2NE 11-25 19:05 → ICU 11-19 00:58
PROC: 0KBW0ZZ Excision of Left Foot Muscle, Open Approach (ICD-10-PCS; principal; 2018-12-01 07:30)
PROC: 0HRNXK3 Replacement of Left Foot Skin with Nonautologous Tissue Substitute, Full Thickness, External Approach (ICD-10-PCS; 2018-12-01 07:30)
PROC: 0QBP0ZX Excision of Left Metatarsal, Open Approach, Diagnostic (ICD-10-PCS; 2018-12-01 07:30)
PROC: 5A1D70Z Performance of Urinary Filtration, Intermittent, Less than 6 Hours Per Day (ICD-10-PCS; 2018-12-01 07:44)
PROC: 5A09457 Assistance with Respiratory Ventilation, 24-96 Consecutive Hours, Continuous Positive Airway Pressure (ICD-10-PCS; 2018-12-01 07:44)
PROC: 0J2TXYZ Change Other Device in Trunk Subcutaneous Tissue and Fascia, External Approach (ICD-10-PCS; 2018-12-01 07:44)
DX: T87.44 Infection of amputation stump, left lower extremity (principal); J81.0 Acute pulmonary edema; J96.01 Acute respiratory failure with hypoxia; N18.6 End stage renal disease; I13.2 Hypertensive heart and chronic kidney disease with heart failure and with stage 5 chronic kidney disease, or end stage renal disease; L97.429 Non-pressure chronic ulcer of left heel and midfoot with unspecified severity; L97.525 Non-pressure chronic ulcer of other part of left foot with muscle involvement without evidence of necrosis; L03.116 Cellulitis of left lower limb; E87.79 Other fluid overload; D63.1 Anemia in chronic kidney disease; E11.621 Type 2 diabetes mellitus with foot ulcer; E11.22 Type 2 diabetes mellitus with diabetic chronic kidney disease; E11.42 Type 2 diabetes mellitus with diabetic polyneuropathy; E11.51 Type 2 diabetes mellitus with diabetic peripheral angiopathy without gangrene; E78.5 Hyperlipidemia, unspecified; E55.9 Vitamin D deficiency, unspecified; I50.9 Heart failure, unspecified; L97.529 Non-pressure chronic ulcer of other part of left foot with unspecified severity; B95.62 Methicillin resistant Staphylococcus aureus infection as the cause of diseases classified elsewhere; Z99.2 Dependence on renal dialysis; E66.9 Obesity, unspecified; Z68.33 Body mass index [BMI] 33.0-33.9, adult; Z89.432 Acquired absence of left foot; Z87.891 Personal history of nicotine dependence; Z79.02 Long term (current) use of antithrombotics/antiplatelets; Z79.82 Long term (current) use of aspirin; Z79.4 Long term (current) use of insulin
CPT/HCPCS: 36415; 36558; 36600; 71045; 73630-LT; 73718; 73721; 76536; 80048; 80053; 80061; 80076; 80202; 81001; 82550; 82553; 82728; 82803; 82962; 83036; 83540; 83605; 83735; 84100; 84145; 84443; 84484; 85025; 85610; 85651; 85730; 86140; 86850; 86900; 86901; 86920; 87040-91; 87045; 87070; 87081; 87086; 87102; 87116; 87340; 88300; 88304; 88311; 90935; 93005; 93922; 93970; 94640; 94660; 94664; 96365; 96375; 99285-25

== ENCOUNTER 2019-01-10 07:42 | Day surgery (SDC) | payer MEDICARE, OTHER ==
[2019-01-10] MEDS ORDERED: ROPIVACAINE 0.5 % 30 ML VIAL (08:46)
[2019-01-10] MEDS: ACETAMINOPHEN 500 MG TAB PO (09:16)
[2019-01-10] MEDS ORDERED: THROMBIN 5000 UNIT (RECOTHROM) VIAL (09:29)
[2019-01-10] MEDS ORDERED: LIDOCAINE 1% (MPF) 30 ML INJ (09:30)
[2019-01-10 09:49] LABS: ANION GAP 11 (5-13); CALCIUM 9.4 mg/dl (8.4-10.2); CARBON DIOXIDE 29 mmol/L (21-31); CHLORIDE 100 mmol/L (97-110); Estimated GFR 10 mL/min (>60); GLUCOSE 91 mg/dl (70-220); SODIUM 140 mmol/L (135-144)
[2019-01-10 09:51] LABS: BLOOD UREA NITROGEN 46 mg/dl (7-20); CREATININE 5.45 mg/dl (0.61-1.24); POTASSIUM 5.4 mmol/L (3.5-5.1)
[2019-01-10] MEDS ORDERED: HYDROmorphONE 1 MG/5 ML IV SYRINGE IV ×3 (10:00)
[2019-01-10] MEDS ORDERED: ALBUTEROL 0.083% (NEB) 2.5 MG/3 ML AMP HHN (10:00)
[2019-01-10] MEDS ORDERED: LABETALOL HCL 20MG INJ IV (10:00)
[2019-01-10] MEDS ORDERED: ONDANSETRON 4 MG INJ IV (10:00)
[2019-01-10] MEDS ORDERED: FENTAnyl 50 MCG/ML VIAL IV ×2 (10:00)
[2019-01-10] MEDS ORDERED: OXYCODONE/ACETAMINOPHEN (5/325) TAB PO ×2 (10:00)
[2019-01-10] MEDS ORDERED: morphine 2 MG INJ IV ×2 (10:00)
[2019-01-10] MEDS ORDERED: hydrALAzine 20 MG INJ IV (10:00)
[2019-01-10] MEDS ORDERED: MEPERIDINE 25 MG INJ IV (10:00)
[2019-01-10] MEDS ORDERED: EPHEDrine 25 MG/5 ML SYG IV (10:00)
[2019-01-10] MEDS ORDERED: DIPHENHYDRAMINE 50 MG INJ IV (10:00)
[2019-01-10] MEDS ORDERED: MIDAZOLAM 1 MG/ML 2 ML INJ (10:06)
[2019-01-10] MEDS ORDERED: PROPOFOL 40 ML (10:07)
[2019-01-10] MEDS ORDERED: LIDOCAINE 2% (SDV) 5 ML INJ (10:07)
[2019-01-10] MEDS ORDERED: FENTAnyl 50 MCG/ML VIAL (10:07)
[2019-01-10] MEDS: HEPARIN 1000 UNITS/ML 10 ML INJ (10:39)
[2019-01-10] MEDS: GELATIN SIZE 100 SPONGE (10:39)
[2019-01-10] MEDS ORDERED: METOCLOPRAMIDE 10 MG INJ (11:01)
[2019-01-10] MEDS ORDERED: ONDANSETRON 4 MG INJ (11:01)
== END 2019-01-10 14:15 ==
LOC: SDS 07:42
DX: I12.0 Hypertensive chronic kidney disease with stage 5 chronic kidney disease or end stage renal disease (principal); N18.6 End stage renal disease; E11.9 Type 2 diabetes mellitus without complications; Z79.4 Long term (current) use of insulin
CPT/HCPCS: 36821; 80048; 82962

== ENCOUNTER 2019-01-28 14:26 | Inpatient (IN) | payer MEDICARE, OTHER ==
[2019-01-28 16:44] LABS: WHITE BLOOD COUNT 11.4 10^3/ul (4.8-10.8)
[2019-01-28 16:44] LABS: ABNORMAL IP MESSAGE 1; HEMATOCRIT 35.9 % (42.0-52.0); HEMOGLOBIN 11.4 g/dl (14.0-18.0); MEAN CORPUSCULAR HEMOGLOBIN 32.4 pg (29.0-33.0); MEAN CORPUSCULAR HGB CONC 31.8 g/dl (32.0-37.0); PLATELET COUNT 281 10^3/UL (140-415); POSITIVE DIFF @See below; RED BLOOD COUNT 3.52 10^6/ul (4.70-6.10); RED CELL DISTRIBUTION WIDTH 14.4 % (11.5-14.5)
[2019-01-28 16:54] LABS: ADD MAN DIFF? YES
[2019-01-28] MEDS ORDERED: ONDANSETRON 4 MG INJ IV (17:00)
[2019-01-28] MEDS ORDERED: ACETAMINOPHEN 325 MG TAB PO (17:00)
[2019-01-28 17:01] LABS: ALANINE AMINOTRANSFERASE 18 IU/L (13-69); ALBUMIN 4.3 g/dl (3.3-4.9); ALBUMIN/GLOBULIN RATIO 0.91; ALKALINE PHOSPHATASE 62 IU/L (42-121); ANION GAP 10 (5-13); ASPARTATE AMINO TRANSFERASE 22 IU/L (15-46); BILIRUBIN,INDIRECT 0.3 mg/dl (0-1.1); BILIRUBIN,TOTAL 0.3 mg/dl (0.2-1.3); BLOOD UREA NITROGEN 26 mg/dl (7-20); CALCIUM 9.4 mg/dl (8.4-10.2); CARBON DIOXIDE 31 mmol/L (21-31); CHLORIDE 97 mmol/L (97-110); CREATININE 3.57 mg/dl (0.61-1.24); Estimated GFR 17 mL/min (>60); GLUCOSE 92 mg/dl (70-220); POTASSIUM 4.6 mmol/L (3.5-5.1); SODIUM 138 mmol/L (135-144)
[2019-01-28 17:11] LABS: TROPONIN-I 0.085 ng/ml (0.000-0.120)
[2019-01-28] MEDS: PIPER-TAZO 3.375 GM IV (PMX) 100 ML IVPB (17:16)
[2019-01-28] MEDS ORDERED: NITROGLYCERIN (SL) 0.4 MG TAB SL (17:30)
[2019-01-28] MEDS ORDERED: SODIUM CHLORIDE 0.9% 1L BAG IV (17:30)
[2019-01-28] MEDS ORDERED: VANCOMYCIN IV PER PHARMACY XX (17:30)
[2019-01-28] MEDS ORDERED: NA PHOSPHATE/BIPHOS 133 ML ENEMA PR (17:30)
[2019-01-28] MEDS ORDERED: ACETAMINOPHEN 650MG/20.3ML CUP PO (17:30)
[2019-01-28] MEDS ORDERED: SENNA TAB PO (17:30)
[2019-01-28] MEDS ORDERED: ALBUMIN HUMAN 25% 100 ML IV (17:30)
[2019-01-28] MEDS ORDERED: BISACODYL 10 MG SUPP PR (17:30)
[2019-01-28] MEDS ORDERED: hydrALAzine 20 MG INJ IV (17:30)
[2019-01-28 17:45] LABS: ANISOCYTOSIS 1+ (0-0); BAND NEUTROPHILS #M 0.7 10^3/ul (0.0-0.6); BAND NEUTROPHILS % (M) 7 % (0-4); GIANT THROMBO% (M) 1 % (0-0); LYMPHOCYTES #M 3.6 10^3/ul (0.8-2.9); LYMPHOCYTES % (M) 32 % (15-51); METAMYELOCYTES #M 0.1 10^3/ul (0.0-0.0); METAMYELOCYTES %M 1 % (0-0); MONOCYTE #M 1.3 10^3/ul (0.3-0.9); MONOCYTES % (M) 12 % (0-11); MYELOCYTES #M 0.3 10^3/ul (0.0-0.0); MYELOCYTES % (M) 3 % (0-0); PLATELET ESTIMATE NORMAL; POLYCHROMASIA 3+ (0-0); SEG NEUT #M 5.2 10^3/ul (1.6-7.5); SEGMENTED NEUTROPHILS (M) % 45 % (39-77); SMUDGE%M 4 % (0-0)
[2019-01-28] MEDS: VANCOMYCIN 1 GM (PMX) 250 ML IVPB (18:02)
[2019-01-28 18:15] LABS: INR 1.09; PROTIME 14.2 Sec (11.9-14.9); PT RATIO 1.1
[2019-01-28 18:23] LABS: PARTIAL THROMBOPLASTIN TIME 38.8 Sec (23.0-35.0)
[2019-01-28 19:25] LABS: LACTIC ACID 1.1 mmol/L (0.5-2.0)
[2019-01-28] MEDS: FAMOTIDINE 20 MG TAB PO (21:27)
[2019-01-28] MEDS: ATORVASTATIN 10 MG TAB PO (21:27)
[2019-01-28] MEDS: VANCOMYCIN 750 MG (PMX) 250 ML IVPB (21:28)
[2019-01-28 23:15] LABS: LACTIC ACID 1.5 mmol/L (0.5-2.0)
[2019-01-29] MEDS ORDERED: GLUCAGON 1 MG INJ IM (06:30)
[2019-01-29] MEDS ORDERED: GLUCOSE GEL 15 GRAM TUBE PO ×2 (06:30)
[2019-01-29] MEDS ORDERED: GLUCOSE GEL 15 GRAM TUBE BUCCAL (06:30)
[2019-01-29] MEDS ORDERED: DEXTROSE 50% 50 ML SYRINGE IV ×2 (06:30)
[2019-01-29] MEDS: INSULIN ASPART [NOVOLOG] 3 ML PEN SC ×4 (08:00→21:00)
[2019-01-29] MEDS: SEVELAMER CARBONATE 0.8 GM PKT PO ×4 (08:00→18:14)
[2019-01-29] MEDS: MULTIVIT/CA CARB/B CMPLX/FA TAB PO (08:43)
[2019-01-29] MEDS: PIPER-TAZO 2.25 GM/NS 50 ML IVPB ×3 (08:43→21:21)
[2019-01-29] MEDS: ASCORBIC ACID 250 MG TAB PO (08:43)
[2019-01-29] MEDS ORDERED: PIPER-TAZO 3.375 GM IV (PMX) 100 ML IVPB (09:00)
[2019-01-29] MEDS: AMLODIPINE 10 MG TAB PO ×2 (09:00→13:59)
[2019-01-29] MEDS: ASPIRIN (EC) 81 MG TAB PO ×2 (09:00→13:59)
[2019-01-29 12:51] LABS: HEPATITIS B SURFACE ANTIGEN NEGATIVE (NEGATIVE)
[2019-01-29] MEDS: HEPARIN 1000 UNITS/ML 10 ML INJ CATHETER (13:37)
[2019-01-29] MEDS: ATORVASTATIN 10 MG TAB PO (21:17)
[2019-01-29] MEDS: FAMOTIDINE 20 MG TAB PO (21:17)
[2019-01-30] MEDS: PIPER-TAZO 2.25 GM/NS 50 ML IVPB (05:43)
[2019-01-30 05:59] LABS: ADD MAN DIFF? NO
[2019-01-30 06:07] LABS: WHITE BLOOD COUNT 11.2 10^3/ul (4.8-10.8)
[2019-01-30 06:07] LABS: ABNORMAL IP MESSAGE 1; BASOPHIL # 0.1 10^3/ul (0.0-0.1); BASOPHILS % 0.4 % (0.0-2.0); EOSINOPHILS # 0.1 10^3/ul (0.0-0.5); EOSINOPHILS % 0.4 % (0.0-7.0); HEMATOCRIT 31.3 % (42.0-52.0); HEMOGLOBIN 9.8 g/dl (14.0-18.0); LYMPHOCYTES # 1.4 10^3/ul (0.8-2.9); LYMPHOCYTES % 12.1 % (15.0-51.0); MEAN CORPUSCULAR HGB CONC 31.3 g/dl (32.0-37.0); MEAN CORPUSCULAR VOLUME 102.3 fl (82.0-101.0); MONOCYTE # 5.3 10^3/ul (0.3-0.9); NEUTROPHIL # 4.4 10^3/ul (1.6-7.5); NEUTROPHILS % 38.9 % (39.0-77.0); PLATELET COUNT 233 10^3/UL (140-415); POSITIVE DIFF @See below; RED BLOOD COUNT 3.06 10^6/ul (4.70-6.10); RED CELL DISTRIBUTION WIDTH 14.4 % (11.5-14.5)
[2019-01-30 06:44] LABS: ALBUMIN 3.3 g/dl (3.3-4.9); ANION GAP 6 (5-13); BLOOD UREA NITROGEN 25 mg/dl (7-20); CALCIUM 8.5 mg/dl (8.4-10.2); CARBON DIOXIDE 31 mmol/L (21-31); CHLORIDE 101 mmol/L (97-110); CREATININE 3.39 mg/dl (0.61-1.24); GLUCOSE 109 mg/dl (70-220); PHOSPHORUS 4.5 mg/dl (2.5-4.9); POTASSIUM 4.5 mmol/L (3.5-5.1); SODIUM 138 mmol/L (135-144)
[2019-01-30 06:48] LABS: VANCOMYCIN,RANDOM 19.9 ug/ml
[2019-01-30] MEDS: INSULIN ASPART [NOVOLOG] 3 ML PEN SC ×4 (08:00→21:00)
[2019-01-30] MEDS: SEVELAMER CARBONATE 0.8 GM PKT PO ×3 (09:51→17:52)
[2019-01-30] MEDS: MULTIVIT/CA CARB/B CMPLX/FA TAB PO (09:51)
[2019-01-30] MEDS: ASCORBIC ACID 250 MG TAB PO (09:51)
[2019-01-30] MEDS: ASPIRIN (EC) 81 MG TAB PO (09:51)
[2019-01-30] MEDS: AMLODIPINE 10 MG TAB PO (09:52)
[2019-01-30] MEDS: CEFTRIAXONE 1 GM/50 ML (PMX) 50 ML IVPB (11:58)
[2019-01-30] MEDS: ATORVASTATIN 10 MG TAB PO (21:39)
[2019-01-30] MEDS: FAMOTIDINE 20 MG TAB PO (21:39)
[2019-01-31 05:40] LABS: ADD MAN DIFF? NO
[2019-01-31 06:02] LABS: ABNORMAL IP MESSAGE 1; BASOPHILS % 0.4 % (0.0-2.0); EOSINOPHILS % 0.4 % (0.0-7.0); HEMATOCRIT 30.2 % (42.0-52.0); HEMOGLOBIN 9.7 g/dl (14.0-18.0); LYMPHOCYTES # 1.4 10^3/ul (0.8-2.9); LYMPHOCYTES % 13.4 % (15.0-51.0); MEAN CORPUSCULAR HEMOGLOBIN 32.2 pg (29.0-33.0); MEAN CORPUSCULAR HGB CONC 32.1 g/dl (32.0-37.0); MEAN CORPUSCULAR VOLUME 100.3 fl (82.0-101.0); MEAN PLATELET VOLUME 10.1 fl (7.4-10.4); MONOCYTE # 4.6 10^3/ul (0.3-0.9); MONOCYTES % 42.8 % (0.0-11.0); NEUTROPHIL # 4.5 10^3/ul (1.6-7.5); NEUTROPHILS % 42.2 % (39.0-77.0); PLATELET COUNT 223 10^3/UL (140-415); POSITIVE DIFF @See below; RED BLOOD COUNT 3.01 10^6/ul (4.70-6.10); RED CELL DISTRIBUTION WIDTH 14.4 % (11.5-14.5)
[2019-01-31 06:02] LABS: WHITE BLOOD COUNT 10.7 10^3/ul (4.8-10.8)
[2019-01-31 06:19] LABS: ANION GAP 8 (5-13); BLOOD UREA NITROGEN 33 mg/dl (7-20); C-REACTIVE PROTEIN 1.6 mg/dl (0.0-0.9); CALCIUM 8.7 mg/dl (8.4-10.2); CARBON DIOXIDE 29 mmol/L (21-31); CHLORIDE 101 mmol/L (97-110); CREATININE 4.38 mg/dl (0.61-1.24); Estimated GFR 13 mL/min (>60); GLUCOSE 120 mg/dl (70-220); POTASSIUM 4.2 mmol/L (3.5-5.1); SODIUM 138 mmol/L (135-144)
[2019-01-31 06:21] LABS: ALBUMIN 3.3 g/dl (3.3-4.9); ANION GAP 9 (5-13); BLOOD UREA NITROGEN 32 mg/dl (7-20); CALCIUM 8.7 mg/dl (8.4-10.2); CARBON DIOXIDE 28 mmol/L (21-31); CHLORIDE 101 mmol/L (97-110); CREATININE 4.38 mg/dl (0.61-1.24); GLUCOSE 116 mg/dl (70-220); MAGNESIUM 1.9 mg/dl (1.7-2.5); PHOSPHORUS 5.3 mg/dl (2.5-4.9); POTASSIUM 4.4 mmol/L (3.5-5.1); SODIUM 138 mmol/L (135-144)
[2019-01-31 07:29] LABS: ERYTHROCYTE SEDIMENTATION RATE 58 mm/Hr (0-20)
[2019-01-31] MEDS: SEVELAMER CARBONATE 0.8 GM PKT PO ×3 (08:00→17:40)
[2019-01-31] MEDS: INSULIN ASPART [NOVOLOG] 3 ML PEN SC ×4 (08:00→20:50)
[2019-01-31] MEDS: ASPIRIN (EC) 81 MG TAB PO (08:48)
[2019-01-31] MEDS: MULTIVIT/CA CARB/B CMPLX/FA TAB PO (08:48)
[2019-01-31] MEDS: ASCORBIC ACID 250 MG TAB PO (08:49)
[2019-01-31] MEDS: AMLODIPINE 10 MG TAB PO (08:52)
[2019-01-31] MEDS: CEFTRIAXONE 1 GM/50 ML (PMX) 50 ML IVPB (10:30)
[2019-01-31] MEDS ORDERED: SOD CHLORIDE 0.45% 1,000 ML IV (13:00)
[2019-01-31] MEDS ORDERED: POLYMYXIN/BACITRACIN 1L IRRIG (14:42)
[2019-01-31] MEDS ORDERED: MIDAZOLAM 1 MG/ML 2 ML INJ (15:01)
[2019-01-31] MEDS ORDERED: PROPOFOL 0 ML (15:01)
[2019-01-31] MEDS ORDERED: FENTAnyl 50 MCG/ML VIAL (15:01)
[2019-01-31] MEDS: LIDOCAINE 1% (MPF) 30 ML INJ (15:34)
[2019-01-31] MEDS: POLYMYXIN/BACITRACIN 1L IRRIG (15:44)
[2019-01-31] MEDS ORDERED: hydrALAzine 20 MG INJ IV (16:00)
[2019-01-31] MEDS ORDERED: FENTAnyl 50 MCG/ML VIAL IV ×3 (16:00)
[2019-01-31] MEDS ORDERED: ONDANSETRON 4 MG INJ IV (16:00)
[2019-01-31] MEDS ORDERED: MEPERIDINE 25 MG INJ IV (16:00)
[2019-01-31] MEDS ORDERED: EPHEDrine 25 MG/5 ML SYG IV (16:00)
[2019-01-31] MEDS ORDERED: DIPHENHYDRAMINE 50 MG INJ IV (16:00)
[2019-01-31] MEDS ORDERED: LABETALOL HCL 20MG INJ IV (16:00)
[2019-01-31] MEDS ORDERED: MIDAZOLAM 1 MG/ML 2 ML INJ IV (16:00)
[2019-01-31] MEDS ORDERED: METOCLOPRAMIDE 10 MG INJ IV (16:00)
[2019-01-31] MEDS: EPOETIN 10000 UNITS/1 ML INJ (ESRD) SC (17:40)
[2019-01-31] MEDS: FAMOTIDINE 20 MG TAB PO (20:49)
[2019-01-31] MEDS: ATORVASTATIN 10 MG TAB PO (20:49)
[2019-01-31] MEDS: VANCOMYCIN 1 GM 250 ML IVPB (20:49)
[2019-02-01] MEDS: HYDROmorphONE 0.5 MG/0.5 ML SYG IV (01:34)
[2019-02-01 05:50] LABS: ADD MAN DIFF? NO
[2019-02-01 05:53] LABS: WHITE BLOOD COUNT 14.8 10^3/ul (4.8-10.8)
[2019-02-01 05:53] LABS: ABNORMAL IP MESSAGE 1; BASOPHILS % 0.3 % (0.0-2.0); EOSINOPHILS % 0.3 % (0.0-7.0); HEMATOCRIT 26.3 % (42.0-52.0); HEMOGLOBIN 8.3 g/dl (14.0-18.0); LYMPHOCYTES # 1.5 10^3/ul (0.8-2.9); LYMPHOCYTES % 9.9 % (15.0-51.0); MEAN CORPUSCULAR HEMOGLOBIN 32.4 pg (29.0-33.0); MEAN CORPUSCULAR HGB CONC 31.6 g/dl (32.0-37.0); MEAN CORPUSCULAR VOLUME 102.7 fl (82.0-101.0); MEAN PLATELET VOLUME 10.5 fl (7.4-10.4); MONOCYTE # 5.7 10^3/ul (0.3-0.9); MONOCYTES % 38.3 % (0.0-11.0); NEUTROPHIL # 7.5 10^3/ul (1.6-7.5); NEUTROPHILS % 50.5 % (39.0-77.0); PLATELET COUNT 214 10^3/UL (140-415); POSITIVE DIFF @See below; RED BLOOD COUNT 2.56 10^6/ul (4.70-6.10); RED CELL DISTRIBUTION WIDTH 14.3 % (11.5-14.5)
[2019-02-01 06:20] LABS: ANION GAP 7 (5-13); BLOOD UREA NITROGEN 44 mg/dl (7-20); CALCIUM 8.4 mg/dl (8.4-10.2); CARBON DIOXIDE 28 mmol/L (21-31); CHLORIDE 101 mmol/L (97-110); CREATININE 4.81 mg/dl (0.61-1.24); GLUCOSE 127 mg/dl (70-220); MAGNESIUM 1.9 mg/dl (1.7-2.5); PHOSPHORUS 6.6 mg/dl (2.5-4.9); POTASSIUM 4.7 mmol/L (3.5-5.1); SODIUM 136 mmol/L (135-144)
[2019-02-01] MEDS: HYDROCODONE/APAP (5/325) TAB PO ×3 (06:54→21:24)
[2019-02-01] MEDS: INSULIN ASPART [NOVOLOG] 3 ML PEN SC ×4 (08:00→21:00)
[2019-02-01] MEDS: MULTIVIT/CA CARB/B CMPLX/FA TAB PO (08:50)
[2019-02-01] MEDS: SEVELAMER CARBONATE 0.8 GM PKT PO ×3 (08:50→17:51)
[2019-02-01] MEDS: AMLODIPINE 10 MG TAB PO (08:50)
[2019-02-01] MEDS: ASPIRIN (EC) 81 MG TAB PO (08:50)
[2019-02-01] MEDS: ASCORBIC ACID 250 MG TAB PO (08:51)
[2019-02-01] MEDS: CEFTRIAXONE 1 GM/50 ML (PMX) 50 ML IVPB (10:53)
[2019-02-01] MEDS: HEPARIN 1000 UNITS/ML 10 ML INJ CATHETER (17:02)
[2019-02-01] MEDS: ATORVASTATIN 10 MG TAB PO (21:21)
[2019-02-01] MEDS: FAMOTIDINE 20 MG TAB PO (21:21)
[2019-02-02 06:37] LABS: ADD MAN DIFF? NO
[2019-02-02 06:44] LABS: ABNORMAL IP MESSAGE 1; BASOPHILS % 0.2 % (0.0-2.0); EOSINOPHILS % 0.2 % (0.0-7.0); HEMATOCRIT 25.8 % (42.0-52.0); HEMOGLOBIN 8.1 g/dl (14.0-18.0); LYMPHOCYTES # 1.4 10^3/ul (0.8-2.9); LYMPHOCYTES % 10.3 % (15.0-51.0); MEAN CORPUSCULAR HEMOGLOBIN 32.3 pg (29.0-33.0); MEAN CORPUSCULAR HGB CONC 31.4 g/dl (32.0-37.0); MEAN CORPUSCULAR VOLUME 102.8 fl (82.0-101.0); MEAN PLATELET VOLUME 10.6 fl (7.4-10.4); MONOCYTE # 6.9 10^3/ul (0.3-0.9); MONOCYTES % 52.5 % (0.0-11.0); NEUTROPHIL # 4.8 10^3/ul (1.6-7.5); NEUTROPHILS % 36.2 % (39.0-77.0); PLATELET COUNT 181 10^3/UL (140-415); POSITIVE DIFF @See below; RED BLOOD COUNT 2.51 10^6/ul (4.70-6.10); RED CELL DISTRIBUTION WIDTH 14.5 % (11.5-14.5)
[2019-02-02 06:44] LABS: WHITE BLOOD COUNT 13.2 10^3/ul (4.8-10.8)
[2019-02-02 07:11] LABS: ANION GAP 6 (5-13); BLOOD UREA NITROGEN 27 mg/dl (7-20); CALCIUM 8.6 mg/dl (8.4-10.2); CARBON DIOXIDE 29 mmol/L (21-31); CHLORIDE 103 mmol/L (97-110); CREATININE 3.65 mg/dl (0.61-1.24); Estimated GFR 17 mL/min (>60); GLUCOSE 82 mg/dl (70-220); PHOSPHORUS 4.4 mg/dl (2.5-4.9); POTASSIUM 4.5 mmol/L (3.5-5.1); SODIUM 138 mmol/L (135-144)
[2019-02-02] MEDS: INSULIN ASPART [NOVOLOG] 3 ML PEN SC ×4 (08:00→20:18)
[2019-02-02] MEDS: SEVELAMER CARBONATE 0.8 GM PKT PO ×3 (08:27→18:18)
[2019-02-02] MEDS: HYDROCODONE/APAP (5/325) TAB PO ×3 (08:27→23:11)
[2019-02-02] MEDS: ASCORBIC ACID 250 MG TAB PO (08:27)
[2019-02-02] MEDS: MULTIVIT/CA CARB/B CMPLX/FA TAB PO (08:27)
[2019-02-02] MEDS: ASPIRIN (EC) 81 MG TAB PO (08:27)
[2019-02-02] MEDS: AMLODIPINE 10 MG TAB PO (08:28)
[2019-02-02] MEDS: CEFTRIAXONE 1 GM/50 ML (PMX) 50 ML IVPB (12:52)
[2019-02-02] MEDS: EPOETIN 10000 UNITS/1 ML INJ (ESRD) SC (18:22)
[2019-02-02] MEDS: FAMOTIDINE 20 MG TAB PO (20:18)
[2019-02-02] MEDS: ATORVASTATIN 10 MG TAB PO (20:18)
[2019-02-03 06:18] LABS: ADD MAN DIFF? NO
[2019-02-03 06:28] LABS: WHITE BLOOD COUNT 14.7 10^3/ul (4.8-10.8)
[2019-02-03 06:28] LABS: ABNORMAL IP MESSAGE 1; BASOPHILS % 0.3 % (0.0-2.0); EOSINOPHILS # 0.1 10^3/ul (0.0-0.5); EOSINOPHILS % 0.4 % (0.0-7.0); HEMATOCRIT 24.2 % (42.0-52.0); HEMOGLOBIN 7.7 g/dl (14.0-18.0); LYMPHOCYTES # 1.6 10^3/ul (0.8-2.9); LYMPHOCYTES % 10.9 % (15.0-51.0); MEAN CORPUSCULAR HEMOGLOBIN 32.8 pg (29.0-33.0); MEAN CORPUSCULAR HGB CONC 31.8 g/dl (32.0-37.0); MEAN PLATELET VOLUME 11.2 fl (7.4-10.4); MONOCYTE # 7.8 10^3/ul (0.3-0.9); MONOCYTES % 52.6 % (0.0-11.0); NEUTROPHIL # 5.2 10^3/ul (1.6-7.5); NEUTROPHILS % 35.3 % (39.0-77.0); PLATELET COUNT 166 10^3/UL (140-415); POSITIVE DIFF @See below; RED BLOOD COUNT 2.35 10^6/ul (4.70-6.10); RED CELL DISTRIBUTION WIDTH 14.3 % (11.5-14.5)
[2019-02-03 07:11] LABS: ANION GAP 9 (5-13); BLOOD UREA NITROGEN 37 mg/dl (7-20); CALCIUM 8.6 mg/dl (8.4-10.2); CARBON DIOXIDE 26 mmol/L (21-31); CHLORIDE 100 mmol/L (97-110); CREATININE 4.12 mg/dl (0.61-1.24); Estimated GFR 14 mL/min (>60); GLUCOSE 148 mg/dl (70-220); MAGNESIUM 2.1 mg/dl (1.7-2.5); PHOSPHORUS 5.1 mg/dl (2.5-4.9); POTASSIUM 4.9 mmol/L (3.5-5.1); SODIUM 135 mmol/L (135-144)
[2019-02-03] MEDS: INSULIN ASPART [NOVOLOG] 3 ML PEN SC ×4 (08:00→20:22)
[2019-02-03] MEDS: HYDROCODONE/APAP (5/325) TAB PO ×2 (08:17→16:07)
[2019-02-03] MEDS: ASPIRIN (EC) 81 MG TAB PO (08:17)
[2019-02-03] MEDS: MULTIVIT/CA CARB/B CMPLX/FA TAB PO (08:17)
[2019-02-03] MEDS: ASCORBIC ACID 250 MG TAB PO (08:17)
[2019-02-03] MEDS: AMLODIPINE 10 MG TAB PO (08:18)
[2019-02-03] MEDS: SEVELAMER CARBONATE 0.8 GM PKT PO ×3 (08:19→17:16)
[2019-02-03] MEDS: HYDROmorphONE 0.5 MG/0.5 ML SYG IV ×2 (10:15→17:25)
[2019-02-03] MEDS: CEFTRIAXONE 1 GM/50 ML (PMX) 50 ML IVPB (10:39)
[2019-02-03 12:34] LABS: IMMEDIATE SPIN CROSSMATCH 1 1
[2019-02-03] MEDS: HEPARIN 1000 UNITS/ML 10 ML INJ CATHETER (13:28)
[2019-02-03] MEDS: LEVOFLOXACIN 750MG/D5W (PMX) 150 ML IVPB (17:16)
[2019-02-03] MEDS: ONDANSETRON 4 MG INJ IV (19:08)
[2019-02-03] MEDS: ATORVASTATIN 10 MG TAB PO (20:22)
[2019-02-03] MEDS: FAMOTIDINE 20 MG TAB PO (20:22)
[2019-02-04 06:25] LABS: ADD MAN DIFF? NO
[2019-02-04 06:39] LABS: ABNORMAL IP MESSAGE 1; BASOPHILS % 0.2 % (0.0-2.0); EOSINOPHILS % 0.4 % (0.0-7.0); HEMATOCRIT 27.5 % (42.0-52.0); HEMOGLOBIN 8.7 g/dl (14.0-18.0); LYMPHOCYTES % 9.2 % (15.0-51.0); MEAN CORPUSCULAR HEMOGLOBIN 32.2 pg (29.0-33.0); MEAN CORPUSCULAR HGB CONC 31.6 g/dl (32.0-37.0); MEAN CORPUSCULAR VOLUME 101.9 fl (82.0-101.0); MEAN PLATELET VOLUME 10.9 fl (7.4-10.4); MONOCYTE # 5.3 10^3/ul (0.3-0.9); MONOCYTES % 48.9 % (0.0-11.0); NEUTROPHIL # 4.4 10^3/ul (1.6-7.5); NEUTROPHILS % 40.6 % (39.0-77.0); PLATELET COUNT 167 10^3/UL (140-415); POSITIVE DIFF @See below; RED CELL DISTRIBUTION WIDTH 14.6 % (11.5-14.5)
[2019-02-04 06:39] LABS: WHITE BLOOD COUNT 10.9 10^3/ul (4.8-10.8)
[2019-02-04 07:06] LABS: ANION GAP 6 (5-13); BLOOD UREA NITROGEN 22 mg/dl (7-20); CALCIUM 8.4 mg/dl (8.4-10.2); CARBON DIOXIDE 31 mmol/L (21-31); CHLORIDE 100 mmol/L (97-110); CREATININE 3.17 mg/dl (0.61-1.24); Estimated GFR 20 mL/min (>60); GLUCOSE 85 mg/dl (70-220); MAGNESIUM 2.1 mg/dl (1.7-2.5); PHOSPHORUS 5.1 mg/dl (2.5-4.9); POTASSIUM 4.7 mmol/L (3.5-5.1); SODIUM 137 mmol/L (135-144)
[2019-02-04] MEDS: INSULIN ASPART [NOVOLOG] 3 ML PEN SC ×3 (08:00→17:14)
[2019-02-04] MEDS: ASPIRIN (EC) 81 MG TAB PO (08:40)
[2019-02-04] MEDS: MULTIVIT/CA CARB/B CMPLX/FA TAB PO (08:40)
[2019-02-04] MEDS: SEVELAMER CARBONATE 0.8 GM PKT PO ×3 (08:40→17:14)
[2019-02-04] MEDS: ASCORBIC ACID 250 MG TAB PO (08:40)
[2019-02-04] MEDS: AMLODIPINE 10 MG TAB PO (08:42)
[2019-02-04] MEDS: VANCOMYCIN 1 GM 250 ML IVPB (11:10)
[2019-02-04] MEDS: ONDANSETRON 4 MG INJ IV (12:58)
[2019-02-04] MEDS: CLONIDINE 0.2 MG/24 HR PATCH TRANSDERM (15:59)
[2019-02-04] MEDS: EPOETIN 10000 UNITS/1 ML INJ (ESRD) SC (16:03)
[2019-02-05] MEDS ORDERED: LEVOFLOXACIN 500 MG TAB PO (16:00)
== END 2019-02-04 19:35 | disposition home or self-care (01) | DRG 617 ==
LOC: E/R 14:26 → 2NE 16:53
PROVIDERS: Internal Medicine
PROC: 0Y6N0Z0 Detachment at Left Foot, Complete, Open Approach (ICD-10-PCS; principal; 2019-01-31 15:12)
PROC: 0HRNXK3 Replacement of Left Foot Skin with Nonautologous Tissue Substitute, Full Thickness, External Approach (ICD-10-PCS; 2019-01-31 15:12)
PROC: 30233N1 Transfusion of Nonautologous Red Blood Cells into Peripheral Vein, Percutaneous Approach (ICD-10-PCS; 2019-01-31 15:12)
PROC: 5A1D70Z Performance of Urinary Filtration, Intermittent, Less than 6 Hours Per Day (ICD-10-PCS; 2019-01-31 15:12)
DX: E11.69 Type 2 diabetes mellitus with other specified complication (principal); M86.172 Other acute osteomyelitis, left ankle and foot; L03.116 Cellulitis of left lower limb; L02.612 Cutaneous abscess of left foot; I12.0 Hypertensive chronic kidney disease with stage 5 chronic kidney disease or end stage renal disease; N18.6 End stage renal disease; E11.22 Type 2 diabetes mellitus with diabetic chronic kidney disease; Z99.2 Dependence on renal dialysis; E11.51 Type 2 diabetes mellitus with diabetic peripheral angiopathy without gangrene; L97.529 Non-pressure chronic ulcer of other part of left foot with unspecified severity; Z79.4 Long term (current) use of insulin; E78.5 Hyperlipidemia, unspecified; E11.40 Type 2 diabetes mellitus with diabetic neuropathy, unspecified; Z89.432 Acquired absence of left foot; B95.62 Methicillin resistant Staphylococcus aureus infection as the cause of diseases classified elsewhere
CPT/HCPCS: 36415; 36430; 71045; 73630-LT; 73718; 80048; 80053; 80069; 80202; 82962; 83605; 83735; 84100; 84484; 85025; 85610; 85651; 85730; 86140; 86850; 86900; 86901; 86920; 87040-91; 87070; 87340; 88304; 88311; 90935; 93005; 99285-25